=== PATIENT | female | born 1930 | race Caucasian/White ===

== ENCOUNTER 2016-12-17 14:34 | Emergency (ER) | payer OTHER ==
[2016-12-17 14:41] VITALS: BMI 39.0
--- NOTE | 2016-12-17 14:41 | PDOC ---
Rapid Medical Evaluation Medical Evaluation: Allergies Allergy/AdvReac Type Severity Reaction Status Date / Time No Known Drug Allergies Allergy Verified 07/29/14 11:14 12/17/16 14:38 Dr. Cedillo/Business Liaison Officer PMD: Dr. Rubi Szymanski [phone] 85 yo F with PMhx: A fib/CHF c/o Back pain x2 weeks with intermittent cp with SOB. Pt does NOT use o2 at home. Pt sent in by Business Liaison Officer
[2016-12-17 15:07] LABS: BASOPHIL 0.9 % (0-2.0); EOSINOPHIL 1.7 % (0-4.5); MCH 31.2 pg (25.7-33.7); MCHC 32.8 g/dl (32.0-36.0); MEAN CELL VOLUME 94.9 fl (80-96); MEAN PLT VOLUME 8.6 fl (7.5-11.1); PLATELET COUNT 224 K/MM3 (134-434); RDW 15.3 % (11.6-15.6); WHITE BLOOD COUNT 9.9 K/mm3 (4.0-10.0)
--- NOTE | 2016-12-17 15:43 | PDOC ---
History of Present Illness - General History Source: Patient, Old Records Exam Limitations: No Limitations - History of Present Illness Initial Comments: 12/17/16 16:02 The patient is an 85-year-old woman, accompanied by family, with a significant past medical history of hypertension, hyperchoelsterolemia, hypothyroidism, thoracic aortic aneurysm, left breast Ca and diverticulitis who was sent to the emergency department by her Physiotherapy Assistant, Dr. Konrad Cedillo for further evaluation of persistent intermittent chest pains for the past week. Patient states that she is unable to perform minimal movements, as her chest pain is exacerbated and she also experiences back pain. she also reports associated symptoms of shortness of breath. Patient expresses concern, as she has a past medical history of a thoracic aortic aneyrusm. Patient states that she called Dr. Cedillo this morning, regarding her symptoms, and she was advised to present to the ED. Patient has a scheduled outpatient cardiology appointment with Dr. Tiwari on 12/24/2016. No recent fevers, chills, weakness No cough, shortness of breath No nausea, vomiting, diarrhea. Allergies: No Known Drug Allergies Past Surgical History: Appendectomy Social History: No tobacco and recreational drug use. Occasional ETOH use. Primary Care Physician: Dr. Rubi Szymanski [phone] Physiotherapy Assistant: Dr. Konrad Cedillo [phone] <Zoila Bullard - Last Filed: 12/17/16 16:30> <Shelly Tabor - Last Filed: 12/19/16 08:11> - General Chief Complaint: Chest Pain Stated Complaint: SOB, CHEST/ BACK PAIN Time Seen by Provider: 12/17/16 14:38 Past History <Zoila Bullard - Last Filed: 12/17/16 16:30> - Past Medical History Anemia: No Asthma: No Cancer: Yes (LT BREAST) Cardiac Disorders: Yes (CHEST PAIN) CVA: No COPD: No CHF: No Dementia: No Diabetes: No GI Disorders: Yes (DIVERTICULITIS; H/O OF MULT TUBULAR ADENOMAS) Disorders: No HTN: Yes Hypercholesterolemia: Yes Liver Disease: No Suicide Attempt (Hx): No Seizures: No Thyroid Disease: Yes (HYPO) - Surgical History Abdominal Surgery: No Appendectomy: Yes Cardiac Surgery: No Cholecystectomy: No Lung Surgery: No Neurologic Surgery: No Orthopedic Surgery: No - Psycho/Social/Smoking Cessation Hx Anxiety: No Suicidal Ideation: No Smoking Status: No Smoking History: Never smoked Have you smoked in the past 12 months: No Number of Cigarettes Smoked Daily: 0 If you are a former smoker, when did you quit?: stopped 11years ago Information on smoking cessation initiated: No 'Breaking Loose' booklet given: 06/07/12 Hx Alcohol Use: Yes (OCC) Drug/Substance Use Hx: No Substance Use Type: None Hx Substance Use Treatment: No <Shelly Tabor - Last Filed: 12/19/16 08:11> - Past Medical History Allergies/Adverse Reactions: Allergies Allergy/AdvReac Type Severity Reaction Status Date / Time No Known Drug Allergies Allergy Verified 12/17/16 14:42 Home Medications: Ambulatory Orders Aspirin [Baby Aspirin] 162 mg PO DAILY 10/18/11 Losartan Potassium [Cozaar] 100 mg PO DAILY 08/12/12 Metoprolol Succinate [Toprol XL -] 50 mg PO BID 08/12/12 Furosemide [Lasix -] 40 mg PO DAILY 07/29/14 Levothyroxine [Synthroid -] 25 mcg PO DAILY 07/29/14 Pravastatin Sodium [Pravachol -] 40 mg PO HS 12/17/16 Review of Systems - Review of Systems Able to Perform ROS?: Yes Comments:: 12/17/16 16:02 GENERAL/CONSTITUTIONAL: No fever or chills. No weakness. HEAD, EYES, EARS, NOSE AND THROAT: No change in vision. No ear pain or discharge. No sore throat. CARDIOVASCULAR: Yes: Chest Pain. Shortness of breath. RESPIRATORY: No cough, wheezing, or hemoptysis. GASTROINTESTINAL: No nausea, vomiting, diarrhea or constipation. GENITOURINARY: No dysuria, frequency, or change in urination. MUSCULOSKELETAL: No joint or muscle swelling or pain. No neck or back pain. SKIN: No rash NEUROLOGIC: No headache, vertigo, loss of consciousness, or change in strength/ sensation. ENDOCRINE: No increased thirst. No abnormal weight change. HEMATOLOGIC/LYMPHATIC: No anemia, easy bleeding, or history of blood clots. ALLERGIC/IMMUNOLOGIC: No hives or skin allergy. <Zoila Bullard - Last Filed: 12/17/16 16:30> *Physical Exam - Vital Signs Last Vital Signs Temp Pulse Resp BP Pulse Ox 97.8 F 97 H 18 156/82 95 12/17/16 14:37 12/17/16 14:37 12/17/16 14:37 12/17/16 14:37 12/17/16 15:05 - Physical Exam Comments: 12/17/16 16:02 GENERAL: Awake, alert, and fully oriented, in no acute distress HEAD: No signs of trauma EYES: PERRLA, EOMI, sclera anicteric, conjunctiva clear ENT: Auricles normal inspection, hearing grossly normal, nares patent, oropharynx clear without exudates. Moist mucosa NECK: Normal ROM, supple, no lymphadenopathy, JVD, or masses LUNGS: Crackles at gail bases, bilaterally. HEART: Regular rate and rhythm, normal S1 and S2, no murmurs, rubs or gallops ABDOMEN: Soft, nontender, normoactive bowel sounds. No guarding, no rebound. No masses EXTREMITIES: Normal range of motion, 2+ pitting edema to the ankles, bilaterally. No clubbing or cyanosis. No cords, erythema, or tenderness NEUROLOGICAL: Cranial nerves II through XII grossly intact. Normal speech. <Ziola Bullard - Last Filed: 12/17/16 16:30> - Vital Signs Last Vital Signs Temp Pulse Resp BP Pulse Ox 97.8 F 97 H 18 156/82 95 12/17/16 14:37 12/17/16 14:37 12/17/16 14:37 12/17/16 14:37 12/17/16 15:05 <Shelly Tabor - Last Filed: 12/19/16 08:11> Heart Score/ECG Review - ECG Impressions Comment:: EKG 14:47- afib, ventricular rate 81 bpm <Shelly Tabor - Last Filed: 12/19/16 08:11> ED Treatment Course - LABORATORY CBC & Chemistry Diagram: 12/17/16 15:00 12/17/16 15:00 - ADDITIONAL ORDERS Additional order review: 12/17/16 15:00 RBC 4.85 MCV 94.9 MCHC 32.8 RDW 15.3 MPV 8.6 Neutrophils % 70.0 Lymphocytes % 20.1 Monocytes % 7.3 Eosinophils % 1.7 Basophils % 0.9 - RADIOLOGY Radiograph Interpretation: 12/17/16 16:02 EXAM: RAD/CHEST PA LAT IMPRESSION: No evidence of vascular congestion, pulmonary infiltrates, airspace opacities. Shallow inspiration. The heart is borderline enlarged. Mildly uncoiled thoracic aorta. Blunting of the posterior costophrenic angle is seen on the lateral x-ray. Evaluate for pleural effusion. <Zoila Bullard - Last Filed: 12/17/16 16:30> - LABORATORY CBC & Chemistry Diagram: 12/17/16 15:00 12/17/16 15:00 - ADDITIONAL ORDERS Additional order review: 12/17/16 15:00 RBC 4.85 MCV 94.9 MCHC 32.8 RDW 15.3 MPV 8.6 Neutrophils % 70.0 Lymphocytes % 20.1 Monocytes % 7.3 Eosinophils % 1.7 Basophils % 0.9 <Shelly Tabor - Last Filed: 12/19/16 08:11> Medical Decision Making - Medical Decision Making 12/17/16 16:[address] Cedillo via phone. Patient with history of thoracic aortic aneurysm, followed as an outpatient (last imaging in this hospital was many years ago). It is approximately 4cm as per Dr. Cedillo. She presents with SOB, but also with diffuse back pain. Apperas fluid-overloaded on exam. Concern that this may be related to the aneurysm. I am going to obtain CTA chest , a/p to further evaluate. 12/17/16 16:[address] Maher- f/u CTA, reassess. Possible admission for CHF if the CTA is unchanged. <Shelly Tabor - Last Filed: 12/19/16 08:11> *DC/Admit/Observation/Transfer - Attestations Scribe Attestion: 12/17/16 16:03 Documentation prepared by Zoila Bullard, acting as medical secretary for Shelly Tabor MD. <Zoila Bullard - Last Filed: 12/17/16 16:30> <Shelly Tabor - Last Filed: 12/19/16 08:11> Diagnosis at time of Disposition: Chest pain Qualifiers: Chest pain type: unspecified Qualified Code(s): R07.9 - Chest pain, unspecified - Discharge Dispostion Disposition: HOME Condition at time of disposition: Stable - Referrals Referrals: Rubi Szymanski MD [Primary Care Provider] - - Patient Instructions Printed Discharge Instructions: DI for Atypical Chest Pain
[2016-12-17 16:04] LABS: ALBUMIN 3.7 g/dl (3.4-5.0); ANION GAP 8 (8-16); BILIRUBIN,TOTAL 0.4 mg/dL (0.2-1.0); CALCIUM 9.3 mg/dL (8.5-10.1); CO2 33 mmol/L (21-32); CREATININE 0.9 mg/dL (0.55-1.02); GLUCOSE,RANDOM 80 mg/dL (74-106); SGOT/AST 22 U/L (15-37); SGPT/ALT 23 U/L (12-78)
[2016-12-17 16:07] LABS: ALK PHOS 86 U/L (45-117); TROPONIN I < 0.02 ng/ml (0.00-0.05)
[2016-12-17 22:23] LABS: TROPONIN I < 0.02 ng/ml (0.00-0.05)
[2016-12-17 22:54] VITALS: BP 144/80; PULSE 78; TEMP 98
--- NOTE | 2016-12-17 22:54 | PDOC ---
*Physical Exam - Vital Signs Last Vital Signs Temp Pulse Resp BP Pulse Ox 97.5 F L 85 18 109/42 95 12/17/16 21:43 12/17/16 21:43 12/17/16 21:43 12/17/16 21:43 12/17/16 21:43 - Physical Exam Comments: 12/17/16 22:54 Patient endorsed to me by Dr. Tabor. Patient is an 85-year-old female who presented with atypical chest and back pain. EKG showed no evidence of acute ischemia. CTA of chest revealed no changes and no evidence of increase in the fusiform 4 cm thoracic aneurysm that was noted previously. Case discussed with Dr. Pena. Serial cardiac enzymes revealed no evidence of myocardial infarction. Patient safe for discharge with outpatient follow-up for atypical chest pain. ED Treatment Course - LABORATORY CBC & Chemistry Diagram: 12/17/16 15:00 12/17/16 15:00 - ADDITIONAL ORDERS Additional order review: Laboratory Results 12/17/16 12/17/16 12/17/16 21:29 15:00 15:00 Sodium 142 Potassium 4.6 D Chloride 101 Carbon Dioxide 33 H Anion Gap 8 BUN 19 H Creatinine 0.9 Creat Clearance w eGFR 59.37 Random Glucose 80 D Calcium 9.3 Total Bilirubin 0.4 D AST 22 D ALT 23 D Alkaline Phosphatase 86 Creatine Kinase 279 H D 367 H D CK-MB (CK-2) 8.083 H Troponin I < 0.02 < 0.02 B-Natriuretic Peptide 1510.33 H Total Protein 7.0 Albumin 3.7 12/17/16 15:00 RBC 4.85 MCV 94.9 MCHC 32.8 RDW 15.3 MPV 8.6 Neutrophils % 70.0 Lymphocytes % 20.1 Monocytes % 7.3 Eosinophils % 1.7 Basophils % 0.9 *DC/Admit/Observation/Transfer Diagnosis at time of Disposition: Chest pain Qualifiers: Chest pain type: unspecified Qualified Code(s): R07.9 - Chest pain, unspecified - Discharge Dispostion Disposition: HOME Condition at time of disposition: Stable - Referrals Referrals: Rubi Szymanski MD [Primary Care Provider] - - Patient Instructions Printed Discharge Instructions: DI for Atypical Chest Pain - Post Discharge Activity
--- NOTE | 2016-12-18 14:13 | EKG ---
Test Reason : Blood Pressure : / mmHG Vent. Rate : 081 BPM Atrial Rate : 078 BPM P-R Int : 000 ms QRS Dur : 086 ms QT Int : 378 ms P-R-T Axes : 000 012 031 degrees QTc Int : 439 ms ATRIAL FIBRILLATION ABNORMAL ECG WHEN COMPARED WITH ECG OF 07-JUN-2012 17:29, ATRIAL FIBRILLATION HAS REPLACED SINUS RHYTHM Confirmed by MARY CRUZ MD ([id number]) on 12/18/2016 2:13:30 PM Referred By: Confirmed By:MARY CRUZ MD
== END 2016-12-17 22:57 | disposition home or self-care (01) ==
LOC: JER 14:34
DX: R07.9 Chest pain, unspecified (principal); I10 Essential (primary) hypertension; E78.00 Pure hypercholesterolemia, unspecified; E03.9 Hypothyroidism, unspecified; Z85.3 Personal history of malignant neoplasm of breast; I71.9 Aortic aneurysm of unspecified site, without rupture
CPT/HCPCS: 36415; 71020-TC; 71275-TC; 74175-TC; 80053; 82550; 82553; 83880; 84484; 85025; 93005; 93010; 99285-25

== ENCOUNTER 2017-10-19 14:47 | Inpatient (IN) | payer OTHER ==
--- NOTE | 2017-10-19 14:56 | PDOC ---
Rapid Medical Evaluation Time Seen by Provider: 10/19/17 14:54 Medical Evaluation: Allergies Allergy/AdvReac Type Severity Reaction Status Date / Time No Known Drug Allergies Allergy Verified 12/17/16 14:42 10/19/17 14:55 I have performed a brief in-person evaluation of this patient. The patient presents with a chief complaint of: BIB sister for worsening sob x 1 month. H/o HTN, 4cm thoracic aneurysm, afib on asa, edema, HLD, breast ca, diverticulitis, limited gait (only ambulates at home) Pertinent physical exam findings: Sating 92% on RA w/ irreg, irreg rhythm and decreased BS at L base I have ordered the following:ekg/cxr/labs The patient will proceed to the ED for further evaluation. 10/19/17 14:57 10/19/17 14:59 10/19/17 15:01
[2017-10-19 15:27] LABS: INR 1.05 (0.82-1.09); PROTHROMBIN TIME (PATIENT) 11.9 SEC (9.98-11.88)
[2017-10-19 15:30] LABS: URINE APPEARANCE CLOUDY; URINE BILIRUBIN NEGATIVE (NEGATIVE); URINE BLOOD NEGATIVE (NEGATIVE); URINE COLOR DKYELLOW; URINE GLUCOSE (UA) NEGATIVE (NEGATIVE); URINE KETONE TRACE (NEGATIVE); URINE LEUK ESTERASE 2+ (NEGATIVE); URINE NITRITE NEGATIVE (NEGATIVE); URINE PROTEIN 1+ (NEGATIVE); URINE UROBILINOGEN 4.0 E.U/dl mg/dL (0.2-1.0)
[2017-10-19 15:43] LABS: ALBUMIN 3.3 g/dl (3.4-5.0); ANION GAP 9 (8-16); BLOOD UREA NITROGEN 20 mg/dL (7-18); CALCIUM 8.8 mg/dL (8.5-10.1); CHLORIDE 101 mmol/L (98-107); CO2 33 mmol/L (21-32); CREATININE 0.9 mg/dL (0.55-1.02); GLUCOSE,RANDOM 127 mg/dL (74-106); SGOT/AST 19 U/L (15-37); SGPT/ALT 21 U/L (12-78); SODIUM 143 mmol/L (136-145)
[2017-10-19 15:47] LABS: ALK PHOS 87 U/L (45-117); BILIRUBIN,TOTAL 0.5 mg/dL (0.2-1.0); TOT PROT 6.2 g/dl (6.4-8.2)
[2017-10-19 15:48] LABS: EPI CELLS MODERATE /HPF (FEW); URINE BACTERIA RARE /hpf (NONE SEEN); URINE MUCUS RARE
--- NOTE | 2017-10-19 15:49 | PDOC ---
History of Present Illness - General Chief Complaint: Shortness of Breath Stated Complaint: SOB/DIZZINESS Time Seen by Provider: 10/19/17 14:54 - History of Present Illness Initial Comments: 10/19/17 15:58 The patient is an 86 year old female with a history of afib on asa, HTN, 4cm Thoracic aneurysm, edema, HLD, Breast CA who presents for evaluation of SOB. The patient is accompanied by her daughter who assists in providing the history. They report a 1 month history of SOB. However, the patient has been experiencing worsening SOB over the past 3-4 days especially with exertion prompting her presentation to the ED today. She denies any fevers, chills, chest pain, nausea, vomiting, abdominal pain, or changes with urination or bowel movements. She also reports some worsening lower extremity edema over the past 1 week. Past History - Past Medical History Allergies/Adverse Reactions: Allergies Allergy/AdvReac Type Severity Reaction Status Date / Time No Known Drug Allergies Allergy Verified 10/19/17 15:01 Home Medications: Ambulatory Orders Aspirin [Baby Aspirin] 162 mg PO DAILY 10/18/11 Losartan Potassium [Cozaar] 100 mg PO DAILY 08/12/12 Metoprolol Succinate [Toprol XL -] 50 mg PO BID 08/12/12 Furosemide [Lasix -] 40 mg PO DAILY 07/29/14 Levothyroxine [Synthroid -] 25 mcg PO DAILY 07/29/14 Pravastatin Sodium [Pravachol -] 40 mg PO HS 12/17/16 Anemia: No Asthma: No Cancer: Yes (LT BREAST) Cardiac Disorders: Yes (CHEST PAIN) CVA: No COPD: No CHF: No Dementia: No Diabetes: No GI Disorders: Yes (DIVERTICULITIS; H/O OF MULT TUBULAR ADENOMAS) Disorders: No HTN: Yes Hypercholesterolemia: Yes Liver Disease: No Seizures: No Thyroid Disease: Yes (HYPO) - Surgical History Abdominal Surgery: No Appendectomy: Yes Cardiac Surgery: No Cholecystectomy: No Lung Surgery: No Neurologic Surgery: No Orthopedic Surgery: No - Suicide/Smoking/Psychosocial Hx Smoking Status: No Smoking History: Never smoked Have you smoked in the past 12 months: No Number of Cigarettes Smoked Daily: 0 If you are a former smoker, when did you quit?: stopped 11years ago Information on smoking cessation initiated: No 'Breaking Loose' booklet given: 06/07/12 Hx Alcohol Use: No Drug/Substance Use Hx: No Substance Use Type: None Hx Substance Use Treatment: No Review of Systems - Review of Systems Comments:: 10/19/17 16:08 Constitutional: No fevers, chills, fatigue, malaise HEENT: No Rhinorrhea, nasal congestion, visual changes Cardiovascular: No chest pain, syncope, palpitations, lightheadedness Respiratory: SOB. No Cough, Hemoptysis, Gastrointestinal: No Abdominal pain, Nausea, Vomiting, Constipation, Diarrhea, Melena Genitourinary: No Dysuria, Frequency, Urgency, Hesitancy, Hematuria, Flank pain Musculoskeletal: No Myalgia, arthralgia Skin: No rashes, bruising, pallor Neurologic: No Headache, Dizziness, Numbness, Weakness, or Tingling Psychiatric: No Hallucinations. No SI or HI *Physical Exam - Vital Signs Last Vital Signs Temp Pulse Resp BP Pulse Ox 97.9 F 82 22 142/79 92 L 10/19/17 14:53 10/19/17 14:53 10/19/17 14:53 10/19/17 14:53 10/19/17 14:53 - Physical Exam Comments: 10/19/17 16:16 General Appearance: Nourished. No Apparent Distress HEENT: EOMI, ROSE. No Pharyngeal Erythema, Tonsillar Exudate, Tonsillar Erythema Neck: No Cervical Lymphadenopathy Respiratory/Chest: Normal Breath Sounds. Bibasilar rales noted on auscultation. No Rhonchi, Wheezing Cardiovascular: Irregularly Irregular. No Murmur, Gallops, Rubs Gastrointestinal/Abdominal: Normal Bowel Sounds, Soft. No Guarding, Rebound, Tenderness Musculoskeletal: No CVA Tenderness Extremity: 2+ pitting edema in the lower extremities bilatearlly. Normal Capillary Refill Integumentary: Normal Color, Dry, Warm Neurologic: Fully Oriented, Alert, Normal Mood/Affect, Normal Response, ED Treatment Course - LABORATORY CBC & Chemistry Diagram: 10/19/17 15:30 10/19/17 15:06 - ADDITIONAL ORDERS Additional order review: Laboratory Results 10/19/17 10/19/17 15:23 15:06 PT with INR 11.90 H INR 1.05 Urine Color Dkyellow Urine Appearance Cloudy Urine pH 5.0 Ur Specific [place] 1.026 Urine Protein 1+ H Urine Glucose (UA) Negative Urine Ketones Trace H Urine Blood Negative Urine Nitrite Negative Urine Bilirubin Negative Urine Urobilinogen 4.0 e.u/dl H Medical Decision Making - Medical Decision Making 10/19/17 16:17 The patient is an 86 year old female with a history of afib on asa, HTN, 4cm Thoracic aneurysm, edema, HLD, Breast CA who presents for evaluation of SOB. Differential includes but is not limited to: CHF, Pneumonia, infectious, metabolic derangement. Given the patient's physical exam, it is possible her symptoms are due to a CHF exacerbation. However we will obtain a cbc, cmp, troponin, bnp, ua, chest plain film, and ekg to evaluate for other etiologies. We will continue to monitor and reassess. 10/19/17 18:52 CBC, troponin, cmp, ua are unremarkable. BNP is elevated to 1400 and chest plain film demonstrates some signs of pulmonary edema as preliminarily read by ER physician. We believe the patient requires admission for further management of her symptoms as she continues to desaturate to 89% on RA. We discussed the case with Dr. Navarro who accepted the patient for admission. *DC/Admit/Observation/Transfer Diagnosis at time of Disposition: CHF (congestive heart failure) Qualifiers: Congestive heart failure type: unspecified congestive heart failure type Congestive heart failure chronicity: unspecified congestive heart failure chronicity Qualified Code(s): I50.9 - Heart failure, unspecified - Discharge Dispostion Condition at time of disposition: Stable Admit: Yes - Referrals - Patient Instructions - Post Discharge Activity
[2017-10-19 16:08] LABS: BASO % 0.8 % (0-2.0); EOS % 1.7 % (0-4.5); HEMATOCRIT 42.1 % (32.4-45.2); HEMOGLOBIN 13.7 GM/dL (10.7-15.3); LYMPH % 16.8 % (8-40); MCH 30.8 pg (25.7-33.7); MCHC 32.5 g/dl (32.0-36.0); MEAN CELL VOLUME 94.9 fl (80-96); MEAN PLT VOLUME 8.7 fl (7.5-11.1); MONO % 9.1 % (3.8-10.2); NEUT % 71.6 % (42.8-82.8); PLATELET COUNT 204 K/MM3 (134-434); RBC 4.44 M/mm3 (3.60-5.2); RDW 15.8 % (11.6-15.6); WHITE BLOOD COUNT 9.5 K/mm3 (4.0-10.0)
--- NOTE | 2017-10-19 19:51 | PDOC ---
Attending Attestation - Resident Resident Name: Tyrone Dash - ED Attending Attestation I have performed the following: I have examined & evaluated the patient, The case was reviewed & discussed with the resident, I agree w/resident's findings & plan, Exceptions are as noted - HPI HPI: 10/19/17 19:51 86 yo female w history of shortness of breath - Physicial Exam PE: 10/19/17 19:55 alert 86 yo female with c/o dyspnea head ncat neck supple lungs no crackles,no wheezing abd soft ,nontender cvs [id number] ext + edema skin no cellulitis psych appropriate neuro moving all extremities,alert,conversant - Medical Decision Making 10/19/17 19:57 increased LE edema, sob with elevated bnp, admit for chf
[2017-10-19] MEDS: HEPARIN NA (PORCINE) 5,000 UNITS/ML 1ML VIAL SQ SCH (22:00)
[2017-10-19] MEDS: METOPROLOL SUCCINATE 50 MG TAB.SR.24H (FP) PO SCH (22:00)
[2017-10-19] MEDS ORDERED: METOPROLOL SUCCINATE 50 MG TAB.SR.24H (FP) ONE (22:07)
[2017-10-19] MEDS ORDERED: HEPARIN NA (PORCINE) 5,000 UNITS/ML 1ML VIAL ONE (22:07)
--- NOTE | 2017-10-19 22:23 | HP ---
Admitting History and Physical - Admission Chief Complaint: shortness of breath History of Present Illness: 86 yo female, presents to hospital with increasing shortness of breath for past month. Denies any chest pain. Did have shortness of breath prior, for which she had seen insulation helper (Dr Patel) over the summer, but no significant lung disease was noted. Patient does take lasix daily. Has chronic edema in legs , but left leg seems increased compared to her baseline. History Source: Patient, Family Member, Medical Record Limitations to Obtaining History: No Limitations - Past Medical History Cardiovascular: Yes: CAD, HTN, Hyperlipdemia, Other (chronic venous insufficiency bilateral legs) Gastrointestinal: Yes: Diverticulitis, Diverticulosis Heme/Onc: Yes: Cancer (left breast) Musculoskeletal: Yes: Chronic low back pain Endocrine: Yes: Hypothyroidism - Past Surgical History Past Surgical History: Yes: Appendectomy, Mastectomy (left) - Smoking History Smoking history: Never smoked Have you smoked in the past 12 months: No Aproximately how many cigarettes per day: 0 If you are a former smoker, when did you quit?: stopped 11years ago - Alcohol/Substance Use Hx Alcohol Use: No Home Medications - Allergies Allergies/Adverse Reactions: Allergies Allergy/AdvReac Type Severity Reaction Status Date / Time No Known Drug Allergies Allergy Verified 10/19/17 15:01 - Home Medications Home Medications: Ambulatory Orders Aspirin [Baby Aspirin] 162 mg PO DAILY 10/18/11 Losartan Potassium [Cozaar] 100 mg PO DAILY 08/12/12 Metoprolol Succinate [Toprol XL -] 50 mg PO BID 08/12/12 Furosemide [Lasix -] 40 mg PO DAILY 07/29/14 Levothyroxine [Synthroid -] 25 mcg PO DAILY 07/29/14 Pravastatin Sodium [Pravachol -] 40 mg PO HS 12/17/16 Family Disease History - Family Disease History Family Disease History: Heart Disease: Mother, Brother Review of Systems - Review of Systems Constitutional: denies: Chills, Fever Eyes: reports: No Symptoms HENT: denies: Difficult Swallowing, Epistaxis, Throat Pain Neck: denies: Decreased ROM, Stiffness Cardiovascular: denies: Chest Pain, Palpitations Respiratory: denies: Cough, Wheezing Gastrointestinal: reports: Constipation. denies: Abdominal Pain, Diarrhea, Melena, Nausea, Vomiting Genitourinary: denies: Burning, Discharge, Dysuria Physical Examination Vital Signs: Vital Signs Temperature 97.9 F 10/19/17 14:53 Pulse Rate 88 10/19/17 19:07 Respiratory Rate 22 10/19/17 19:07 Blood Pressure 151/85 10/19/17 19:07 O2 Sat by Pulse Oximetry (%) 94 L 10/19/17 19:07 Constitutional: Yes: Well Nourished, No Distress, Calm Eyes: Yes: Conjunctiva Clear, EOM Intact, PERRL HENT: Yes: Atraumatic, Normocephalic Neck: Yes: Supple, Trachea Midline Cardiovascular: Yes: Regular Rate and Rhythm, S1, S2. No: Murmur Respiratory: Yes: Regular, Diminished (at bases) Gastrointestinal: Yes: Normal Bowel Sounds, Soft, Abdomen, Obese. No: Distention, Tenderness Edema: Yes Edema: LLE: 2+, RLE: 2+ Neurological: Yes: Alert, Oriented Labs: CBC, BMP 10/19/17 15:30 10/19/17 15:06 Imaging - Results Chest X-ray: Image Reviewed ((unofficial) left interstitial edema, left pleural effusion) Problem List - Problems (1) CHF (congestive heart failure) Assessment/Plan: -start IV lasix -cardio eval -on ASA, ARB, B-margy Code(s): I50.9 - HEART FAILURE, UNSPECIFIED Qualifiers: Congestive heart failure type: unspecified congestive heart failure type Congestive heart failure chronicity: unspecified congestive heart failure chronicity Qualified Code(s): I50.9 - Heart failure, unspecified (2) Hypertension Assessment/Plan: -cont antihypertensives Code(s): I10 - ESSENTIAL (PRIMARY) HYPERTENSION (3) Hypothyroid Assessment/Plan: -cont synthroid Code(s): E03.9 - HYPOTHYROIDISM, UNSPECIFIED (4) Venous insufficiency (chronic) (peripheral) Assessment/Plan: -wll be on lasix IV Code(s): I87.2 - VENOUS INSUFFICIENCY (CHRONIC) (PERIPHERAL) (5) Hyperlipidemia Assessment/Plan: -cont statin Code(s): E78.5 - HYPERLIPIDEMIA, UNSPECIFIED
[2017-10-20] MEDS: ATORVASTATIN CA 10 MG TABLET (FP) PO SCH ×2 (00:09→21:38)
[2017-10-20] MEDS ORDERED: FLU VACCINE QUAD 60 MCG/0.5 ML (MDV 17-18) IM ONE (00:45)
[2017-10-20 06:53] LABS: ALBUMIN 3.2 g/dl (3.4-5.0); ANION GAP 8 (8-16); BLOOD UREA NITROGEN 18 mg/dL (7-18); CALCIUM 8.7 mg/dL (8.5-10.1); CHLORIDE 102 mmol/L (98-107); CO2 33 mmol/L (21-32); GLUCOSE,RANDOM 81 mg/dL (74-106); POTASSIUM 3.6 mmol/L (3.5-5.1); SODIUM 143 mmol/L (136-145)
[2017-10-20 06:56] LABS: ALK PHOS 72 U/L (45-117); BILIRUBIN,TOTAL 0.5 mg/dL (0.2-1.0); CREATININE 0.7 mg/dL (0.55-1.02); SGOT/AST 17 U/L (15-37); SGPT/ALT 20 U/L (12-78); TOT PROT 6.1 g/dl (6.4-8.2)
--- NOTE | 2017-10-20 08:59 | CON.CARD ---
Consult Consult Specialty:: Cardiology Referred by:: Dr. Navarro Reason for Consultation:: Acute on chronic CHF - History of Present Illness Chief Complaint: Increasing SOB and edema History of Present Illness: 86F, followed in office, with permanent AF, obesity, non-obstx CAD on cath 2011 , HTN, chronic diastolic CHF, hyperlipidemia, ascending aortic aneursm 4.0 cm, mild , mild PHTN presented to ER with family for several weeks of increased ELLIS and LE edema. Denies CP, palps, syncope. Denies PND. Mild orthopnea. No fevers or chills. No recent travel. - History Source History Provided By: Patient, Medical Record - Past Medical History Cardio/Vascular: Yes: CAD (non-obstx 2011), HTN, Hyperlipdemia, Other (chronic venous insufficiency bilateral legs) Gastrointestinal: Yes: Diverticulitis, Diverticulosis Musculoskeletal: Yes: Chronic low back pain Endocrine: Yes: Hypothyroidism - Past Surgical History Past Surgical History: Yes: Appendectomy, Mastectomy (left) Additional Surgical History: Cath 2011, non-obstructive - Alcohol/Substance Use Hx Alcohol Use: No - Smoking History Smoking history: Never smoked Have you smoked in the past 12 months: No Aproximately how many cigarettes per day: 0 If you are a former smoker, when did you quit?: stopped 11years ago - Social History History of Recent Travel: No Home Medications - Allergies Allergies/Adverse Reactions: Allergies Allergy/AdvReac Type Severity Reaction Status Date / Time No Known Drug Allergies Allergy Verified 10/19/17 15:01 - Home Medications Home Medications: Ambulatory Orders Aspirin [Baby Aspirin] 162 mg PO DAILY 10/18/11 Losartan Potassium [Cozaar] 100 mg PO DAILY 08/12/12 Metoprolol Succinate [Toprol XL -] 50 mg PO BID 08/12/12 Furosemide [Lasix -] 40 mg PO DAILY 07/29/14 Levothyroxine [Synthroid -] 25 mcg PO DAILY 07/29/14 Pravastatin Sodium [Pravachol -] 40 mg PO HS 12/17/16 Family Disease History - Family Disease History Family Disease History: Heart Disease: Mother, Brother Review of Systems Findings/Remarks: see HPI - Review of Systems Constitutional: reports: No Symptoms Eyes: reports: No Symptoms HENT: reports: No Symptoms Neck: reports: No Symptoms Cardiovascular: reports: Shortness of Breath Respiratory: reports: Exercise Intolerance, SOB on Exertion Gastrointestinal: reports: No Symptoms Genitourinary: reports: No Symptoms Musculoskeletal: reports: No Symptoms Integumentary: reports: No Symptoms Neurological: reports: No Symptoms Endocrine: reports: No Symptoms Hematology/Lymphatic: reports: No Symptoms Psychiatric: reports: No Symptoms - Risk Factors Known Risk Factors: Yes: Hypercholesterolemia, Hypertension, Physical Inactivity Vital Signs: Vital Signs Temperature 98.5 F 10/20/17 06:58 Pulse Rate 65 10/20/17 06:58 Respiratory Rate 18 10/20/17 06:58 Blood Pressure 119/53 10/20/17 06:58 O2 Sat by Pulse Oximetry (%) 97 10/20/17 06:58 Constitutional: Yes: No Distress, Calm Eyes: Yes: Conjunctiva Clear, EOM Intact HENT: Yes: Atraumatic, Normocephalic Neck: Yes: Trachea Midline Respiratory: Yes: Other (decreased breath sounds at bases; no wheezing.) Gastrointestinal: Yes: Soft, Abdomen, Obese JVD: Yes Carotid Bruit: No PMI: Non-Displaced Heart Sounds: Yes: S1, S2 (irregular, soft systolic murmur at RSB.) Murmur: Yes: Systolic Murmur Musculoskeletal: Yes: WNL Extremities: Yes: WNL Edema: Yes Edema: LLE: 2+, RLE: 2+ Peripheral Pulses WNL: Yes Integumentary: Yes: WNL Neurological: Yes: Alert, Oriented ...Motor Strength: WNL - Other Data Labs, Other Data: CBC, BMP 10/19/17 15:30 10/20/17 05:50 INR, PTT INR 1.05 (0.82-1.09) 10/19/17 15:06 Troponin, BNP 10/19/17 10/19/17 10/20/17 15:06 15:06 00:30 Troponin I 0.02 0.02 B-Natriuretic Peptide 1484.71 H 10/20/17 05:50 Troponin I 0.02 B-Natriuretic Peptide Troponin, BNP 10/19/17 10/19/17 10/20/17 15:06 15:06 00:30 Troponin I 0.02 0.02 B-Natriuretic Peptide 1484.71 H 10/20/17 05:50 Troponin I 0.02 B-Natriuretic Peptide AF 74bpm, LVH, PVC, NSST changes Echo: Pending, Other (office echo 2017: Nl LV, E:A reversal c/w diastolic dysfx , Mild MR, Mild ,Aorta 4cm) Prior Cardiac Procedures: Cardiac Catheterization, Other (non-obstructive 2011) Ejection Fraction %: LVEF > or = 40 % Imaging - Results X-ray: Image Reviewed EKG: Image Reviewed Problem List - Problems (1) Acute on chronic diastolic CHF (congestive heart failure) Assessment/Plan: -secondary to chronic hypertensive heart disease; Continue ARB -Agree with IV Lasix daily, strict I/s and Os and daily weights -Telemetry -Prior cath 2011 with non-obstructive CAD Code(s): I50.33 - ACUTE ON CHRONIC DIASTOLIC (CONGESTIVE) HEART FAILURE (2) Permanent atrial fibrillation Assessment/Plan: -Rate controlled, continue Toprol at home dose -Continue ASA therapy, not a candidate for full AC due to frequent home falls. Issue has been raised and discussed with patient and family in depth. Option of full AC was raised, but given concerns for her repeated falls, ASA was chosen as most appropriate therapy. Code(s): I48.2 - CHRONIC ATRIAL FIBRILLATION (3) CAD (coronary artery disease) Assessment/Plan: -non-obstructive. -Continue ASA and statin. Code(s): I25.10 - ATHSCL HEART DISEASE OF [place] CORONARY ARTERY W/O ANG PCTRS Qualifiers: Coronary Disease-Associated Artery/Lesion type: [place] artery Associated angina: without angina (4) Aortic stenosis Assessment/Plan: -chronic, mild. -To repeat echo to re-assess Code(s): I35.0 - NONRHEUMATIC AORTIC (VALVE) STENOSIS Qualifiers: Cardiac valve disease etiology: nonrheumatic Qualified Code(s): I35.0 - Nonrheumatic aortic (valve) stenosis (5) Hypertension Assessment/Plan: -currently adequately controlled -continue Losartan Code(s): I10 - ESSENTIAL (PRIMARY) HYPERTENSION Qualifiers: Hypertension type: essential hypertension Qualified Code(s): I10 - Essential (primary) hypertension (6) Pulmonary hypertension Assessment/Plan: -Chronic and due to chronic diastolic CHF, obesity, possible LISY -Diurese -Repeat echo -Can consider low dose Imdur to reduce EDP/preload and possibly also help with PHTN Code(s): I27.20 - PULMONARY HYPERTENSION, UNSPECIFIED (7) Ascending aortic aneurysm Assessment/Plan: -Mild and stable at 4cm; no sig. AR -BP control, continue beta margy -repeat Echo Code(s): I71.2 - THORACIC AORTIC ANEURYSM, WITHOUT RUPTURE (8) Obesity Assessment/Plan: -Low sodium diet -Manager Lvn on modifying carb intake -Exercise capacity and mobility are limited by weight and chronic OA of knees, hips and lower back Code(s): E66.9 - OBESITY, UNSPECIFIED Qualifiers: Obesity type: with alveolar hypoventilation Serious obesity comorbidity presence: without serious comorbidity (9) Hyperlipidemia Assessment/Plan: -Continue Pravachol/ -Goal LDL < 100mg/dl Code(s): E78.5 - HYPERLIPIDEMIA, UNSPECIFIED Qualifiers: Hyperlipidemia type: unspecified Qualified Code(s): E78.5 - Hyperlipidemia , unspecified
--- NOTE | 2017-10-20 10:48 | PN ---
Progress Note, Physician Chief Complaint: Ms Benítez says her breathing is better but still with some shortness of breath. No cp or n/v. Legs chronically swollen but states worse currently. - Current Medication List Current Medications: Active Medications Aspirin (Asa -) 162 mg PO DAILY [facility] Atorvastatin Calcium (Lipitor -) 10 mg PO HS [facility] Last Admin: 10/20/17 00:09 Dose: 10 mg Furosemide (Lasix Injection -) 40 mg IVPUSH DAILY [facility] Heparin Sodium (Porcine) (Heparin -) 5,000 unit SQ BID [facility] Last Admin: 10/19/17 22:00 Dose: 5,000 unit Levothyroxine Sodium (Synthroid -) 25 mcg PO DAILY@0700 [facility] Losartan Potassium (Losartan Potassium) 100 mg PO DAILY [facility] Metoprolol Succinate (Toprol Xl -) 50 mg PO BID [facility] Last Admin: 10/19/17 22:00 Dose: 50 mg - Objective Vital Signs: Vital Signs Temperature 36.9 C 10/20/17 06:58 Pulse Rate 65 10/20/17 06:58 Respiratory Rate 18 10/20/17 06:58 Blood Pressure 119/53 10/20/17 06:58 O2 Sat by Pulse Oximetry (%) 97 10/20/17 06:58 Constitutional: Yes: No Distress, Calm, Obese (morbid) Cardiovascular: Yes: Regular Rate and Rhythm, JVD. No: Gallop, Murmur, Rub Respiratory: Yes: Regular, CTA Bilaterally, On Nasal O2. No: Rales, Rhonchi, Wheezes Gastrointestinal: Yes: Normal Bowel Sounds, Soft. No: Distention, Tenderness Extremities: Yes: WNL Edema: Yes Edema: LLE: 3+, RLE: 3+ Labs: CBC, BMP 10/19/17 15:30 10/20/17 05:50 INR, PTT INR 1.05 (0.82-1.09) 10/19/17 15:06 Problem List - Problems (1) Acute on chronic diastolic CHF (congestive heart failure) Assessment/Plan: -appreciate cardiology assistance -continue diuresing with IV lasix -continue toprol xl and losartan Code(s): I50.33 - ACUTE ON CHRONIC DIASTOLIC (CONGESTIVE) HEART FAILURE (2) CAD (coronary artery disease) Assessment/Plan: -quiescent -continue current regimen Code(s): I25.10 - ATHSCL HEART DISEASE OF [place] CORONARY ARTERY W/O ANG PCTRS Qualifiers: Coronary Disease-Associated Artery/Lesion type: [place] artery Associated angina: without angina (3) Hypertension Assessment/Plan: -controlled -continue IV lasix -continue toprol xl and losartan Code(s): I10 - ESSENTIAL (PRIMARY) HYPERTENSION (4) Hypothyroid Assessment/Plan: -continue synthroid Code(s): E03.9 - HYPOTHYROIDISM, UNSPECIFIED (5) Obesity Assessment/Plan: -outpatient weight loss program Code(s): E66.9 - OBESITY, UNSPECIFIED Qualifiers: Obesity type: with alveolar hypoventilation Serious obesity comorbidity presence: without serious comorbidity
[2017-10-20] MEDS: METOPROLOL SUCCINATE 50 MG TAB.SR.24H (FP) PO SCH ×2 (10:49→21:38)
[2017-10-20] MEDS: LEVOTHYROXINE NA 25 MCG TABLET (FP) PO SCH (10:49)
[2017-10-20] MEDS: LOSARTAN POTASSIUM 100 MG TABLET PO SCH (10:49)
[2017-10-20] MEDS: FUROSEMIDE 40 MG/4 ML INJECTABLE VIAL IVPUSH SCH (10:49)
[2017-10-20] MEDS: ASPIRIN 81 MG CHEWABLE TABLETS PO SCH (10:49)
[2017-10-20] MEDS: HEPARIN NA (PORCINE) 5,000 UNITS/ML 1ML VIAL SQ SCH ×2 (10:49→21:38)
[2017-10-20 11:06] VITALS: BMI 45.9
[2017-10-20] MEDS ORDERED: ACETAMINOPHEN 325 MG TABLET (FP) PO PRN (19:59)
[2017-10-20] MEDS: POLYETHYLENE GLYCOL 3350 119 GM BTL PO PRN (21:37)
[2017-10-20] MEDS: ESCITALOPRAM OXALATE 10 MG TABLET (FP) PO SCH (21:39)
[2017-10-21] MEDS: LEVOTHYROXINE NA 25 MCG TABLET (FP) PO SCH (06:28)
[2017-10-21 08:16] LABS: BASO % 0.5 % (0-2.0); EOS % 1.9 % (0-4.5); HEMATOCRIT 41.4 % (32.4-45.2); LYMPH % 21.5 % (8-40); MCH 30.1 pg (25.7-33.7); MCHC 31.4 g/dl (32.0-36.0); MEAN CELL VOLUME 95.9 fl (80-96); MEAN PLT VOLUME 8.4 fl (7.5-11.1); MONO % 9.2 % (3.8-10.2); NEUT % 66.9 % (42.8-82.8); PLATELET COUNT 178 K/MM3 (134-434); RBC 4.32 M/mm3 (3.60-5.2); RDW 16.1 % (11.6-15.6); WHITE BLOOD COUNT 7.4 K/mm3 (4.0-10.0)
[2017-10-21 08:22] LABS: ANION GAP 7 (8-16); BLOOD UREA NITROGEN 16 mg/dL (7-18); CALCIUM 8.2 mg/dL (8.5-10.1); CHLORIDE 100 mmol/L (98-107); CO2 36 mmol/L (21-32); CREATININE 0.7 mg/dL (0.55-1.02); GLUCOSE,RANDOM 73 mg/dL (74-106); MAGNESIUM 2.1 mg/dL (1.8-2.4); PHOSPHOROUS 3.4 mg/dL (2.5-4.9); SODIUM 143 mmol/L (136-145)
--- NOTE | 2017-10-21 08:52 | PN ---
Progress Note, Physician Chief Complaint: alert, no distress Feels better History of Present Illness: Weight 250 down to 240, ? reliable? - Current Medication List Current Medications: Active Medications Acetaminophen (Tylenol -) 325 mg PO Q6H PRN PRN Reason: FEVER OR PAIN Aspirin (Asa -) 162 mg PO DAILY [facility] Last Admin: 10/20/17 10:49 Dose: 162 mg Atorvastatin Calcium (Lipitor -) 10 mg PO HS [facility] Last Admin: 10/20/17 21:38 Dose: 10 mg Escitalopram Oxalate (Lexapro -) 5 mg PO HS [facility] Last Admin: 10/20/17 21:39 Dose: 5 mg Furosemide (Lasix Injection -) 40 mg IVPUSH DAILY [facility] Last Admin: 10/20/17 10:49 Dose: 40 mg Heparin Sodium (Porcine) (Heparin -) 5,000 unit SQ BID [facility] Last Admin: 10/20/17 21:38 Dose: 5,000 unit Levothyroxine Sodium (Synthroid -) 25 mcg PO DAILY@0700 [facility] Last Admin: 10/21/17 06:28 Dose: 25 mcg Losartan Potassium (Losartan Potassium) 100 mg PO DAILY [facility] Last Admin: 10/20/17 10:49 Dose: 100 mg Metoprolol Succinate (Toprol Xl -) 50 mg PO BID [facility] Last Admin: 10/20/17 21:38 Dose: 50 mg Polyethylene Glycol (Miralax (For Daily Use) -) 17 gm PO DAILY PRN PRN Reason: CONSTIPATION Last Admin: 10/20/17 21:37 Dose: 17 grams - Objective Vital Signs: Vital Signs Temperature 97.9 F 10/21/17 08:39 Pulse Rate 87 10/21/17 08:39 Respiratory Rate 20 10/21/17 08:39 Blood Pressure 113/67 10/21/17 08:39 O2 Sat by Pulse Oximetry (%) 94 L 10/20/17 20:16 Constitutional: Yes: No Distress Eyes: Yes: Conjunctiva Clear Cardiovascular: Yes: Pulse Irregular Respiratory: Yes: Other (rales resolved, no wheezing or rhonchi) Gastrointestinal: Yes: Soft, Abdomen, Obese Edema: Yes Edema: LLE: 1+, RLE: 1+ Neurological: Yes: Alert, Oriented Labs: CBC, BMP 10/21/17 06:30 INR, PTT INR 1.05 (0.82-1.09) 10/19/17 15:06 Laboratory Tests 10/19/17 10/19/17 10/19/17 15:06 15:06 15:06 WBC Hgb Hct Plt Count INR 1.05 Sodium Potassium BUN Creatinine Creat Clearance w eGFR Creatine Kinase 216 H Troponin I 0.02 B-Natriuretic Peptide 1484.71 H Urine pH Ur Specific [place] Urine Protein Urine Ketones Urine Blood Urine Nitrite Urine Bilirubin Urine Urobilinogen Ur Leukocyte Esterase 10/19/17 10/19/17 10/20/17 15:23 15:30 00:30 WBC 9.5 Hgb 13.7 Hct 42.1 Plt Count 204 INR Sodium Potassium BUN Creatinine Creat Clearance w eGFR Creatine Kinase 214 H Troponin I 0.02 B-Natriuretic Peptide Urine pH 5.0 Ur Specific [place] 1.026 Urine Protein 1+ H Urine Ketones Trace H Urine Blood Negative Urine Nitrite Negative Urine Bilirubin Negative Urine Urobilinogen 4.0 e.u/dl H Ur Leukocyte Esterase 1+ H 10/20/17 10/20/17 10/21/17 05:50 05:50 06:30 WBC 7.4 Hgb 13.0 Hct Plt Count 178 INR Sodium 143 Potassium 3.6 BUN 18 Creatinine 0.7 D Creat Clearance w eGFR > 60 Creatine Kinase 204 H Troponin I 0.02 B-Natriuretic Peptide Urine pH Ur Specific [place] Urine Protein Urine Ketones Urine Blood Urine Nitrite Urine Bilirubin Urine Urobilinogen Ur Leukocyte Esterase Problem List - Problems (1) Acute on chronic diastolic CHF (congestive heart failure) Code(s): I50.33 - ACUTE ON CHRONIC DIASTOLIC (CONGESTIVE) HEART FAILURE (2) Permanent atrial fibrillation Code(s): I48.2 - CHRONIC ATRIAL FIBRILLATION (3) CAD (coronary artery disease) Code(s): I25.10 - ATHSCL HEART DISEASE OF [place] CORONARY ARTERY W/O ANG PCTRS Qualifiers: Coronary Disease-Associated Artery/Lesion type: [place] artery Associated angina: without angina (4) Aortic stenosis Code(s): I35.0 - NONRHEUMATIC AORTIC (VALVE) STENOSIS Qualifiers: Cardiac valve disease etiology: nonrheumatic Qualified Code(s): I35.0 - Nonrheumatic aortic (valve) stenosis (5) Hypertension Code(s): I10 - ESSENTIAL (PRIMARY) HYPERTENSION Qualifiers: Hypertension type: essential hypertension Qualified Code(s): I10 - Essential (primary) hypertension (6) Pulmonary hypertension Code(s): I27.20 - PULMONARY HYPERTENSION, UNSPECIFIED (7) Ascending aortic aneurysm Code(s): I71.2 - THORACIC AORTIC ANEURYSM, WITHOUT RUPTURE (8) Obesity Code(s): E66.9 - OBESITY, UNSPECIFIED Qualifiers: Obesity type: with alveolar hypoventilation Serious obesity comorbidity presence: without serious comorbidity (9) Hyperlipidemia Code(s): E78.5 - HYPERLIPIDEMIA, UNSPECIFIED Qualifiers: Hyperlipidemia type: unspecified Qualified Code(s): E78.5 - Hyperlipidemia , unspecified Assessment/Plan (1) Acute on chronic diastolic CHF (congestive heart failure) Assessment/Plan: -secondary to chronic hypertensive heart disease; Continue ARB -Cont IV Lasix daily, strict I/s and Os and daily weights; probably can switch to Po tomorrow -Prior cath 2011 with non-obstructive CAD (2) Permanent atrial fibrillation Assessment/Plan: -Rate controlled, continue Toprol -Continue ASA therapy, not a candidate for full AC due to frequent home falls. (3) CAD (coronary artery disease) Assessment/Plan: -non-obstructive. -Continue ASA and statin. (4) Aortic stenosis Assessment/Plan: -chronic, mild. Repeat echo report pending (5) Hypertension Assessment/Plan: -currently adequately controlled -continue Losartan (6) Pulmonary hypertension Assessment/Plan: -Chronic and due to chronic diastolic CHF, obesity, possible LISY -Diurese -Repeat echo report pendng (7) Ascending aortic aneurysm Assessment/Plan: -Mild and stable at 4cm; no sig. AR. Likely no intervention required. -BP control, continue beta margy -repeat Echo pending (8) Obesity Assessment/Plan: -Low sodium diet -Public We[employer] on modifying carb intake -Exercise capacity and mobility are limited by weight and chronic OA of knees, hips and lower back (9) Hyperlipidemia Assessment/Plan: -Continue Pravachol/ -Goal LDL < 100mg/dl
[2017-10-21] MEDS: LOSARTAN POTASSIUM 100 MG TABLET PO SCH (09:10)
[2017-10-21] MEDS: HEPARIN NA (PORCINE) 5,000 UNITS/ML 1ML VIAL SQ SCH ×2 (09:10→21:20)
[2017-10-21] MEDS: FUROSEMIDE 40 MG/4 ML INJECTABLE VIAL IVPUSH SCH (09:10)
[2017-10-21] MEDS: ASPIRIN 81 MG CHEWABLE TABLETS PO SCH (09:10)
[2017-10-21] MEDS: METOPROLOL SUCCINATE 50 MG TAB.SR.24H (FP) PO SCH ×2 (09:10→21:20)
--- NOTE | 2017-10-21 12:20 | PN ---
Progress Note, Physician Chief Complaint: Ms Benítez says she is feeling much better today. Says her breathing is doing well. Still with significant swelling, cannot tell me if close to baseline but improved from yesterday. No cp or n/v. - Current Medication List Current Medications: Active Medications Acetaminophen (Tylenol -) 325 mg PO Q6H PRN PRN Reason: FEVER OR PAIN Aspirin (Asa -) 162 mg PO DAILY [facility] Last Admin: 10/21/17 09:10 Dose: 162 mg Atorvastatin Calcium (Lipitor -) 10 mg PO HS [facility] Last Admin: 10/20/17 21:38 Dose: 10 mg Escitalopram Oxalate (Lexapro -) 5 mg PO HS [facility] Last Admin: 10/20/17 21:39 Dose: 5 mg Furosemide (Lasix Injection -) 40 mg IVPUSH DAILY [facility] Last Admin: 10/21/17 09:10 Dose: 40 mg Heparin Sodium (Porcine) (Heparin -) 5,000 unit SQ BID [facility] Last Admin: 10/21/17 09:10 Dose: 5,000 unit Levothyroxine Sodium (Synthroid -) 25 mcg PO DAILY@0700 [facility] Last Admin: 10/21/17 06:28 Dose: 25 mcg Losartan Potassium (Losartan Potassium) 100 mg PO DAILY [facility] Last Admin: 10/21/17 09:10 Dose: 100 mg Metoprolol Succinate (Toprol Xl -) 50 mg PO BID [facility] Last Admin: 10/21/17 09:10 Dose: 50 mg Polyethylene Glycol (Miralax (For Daily Use) -) 17 gm PO DAILY PRN PRN Reason: CONSTIPATION Last Admin: 10/20/17 21:37 Dose: 17 grams - Objective Vital Signs: Vital Signs Temperature 36.6 C 10/21/17 08:39 Pulse Rate 87 10/21/17 08:39 Respiratory Rate 20 10/21/17 08:39 Blood Pressure 113/67 10/21/17 08:39 O2 Sat by Pulse Oximetry (%) 96 10/21/17 09:00 Constitutional: Yes: No Distress, Calm, Obese Cardiovascular: Yes: Regular Rate and Rhythm. No: Gallop, Murmur, Rub Respiratory: Yes: Regular, CTA Bilaterally. No: Rales, Rhonchi, Wheezes Gastrointestinal: Yes: Normal Bowel Sounds, Soft. No: Distention, Tenderness Extremities: Yes: WNL Edema: Yes Edema: LLE: 2+, RLE: 2+ Labs: CBC, BMP 10/21/17 06:30 10/21/17 06:30 INR, PTT INR 1.05 (0.82-1.09) 10/19/17 15:06 Problem List - Problems (1) Acute on chronic diastolic CHF (congestive heart failure) Code(s): I50.33 - ACUTE ON CHRONIC DIASTOLIC (CONGESTIVE) HEART FAILURE (2) CAD (coronary artery disease) Code(s): I25.10 - ATHSCL HEART DISEASE OF [place] CORONARY ARTERY W/O ANG PCTRS Qualifiers: Coronary Disease-Associated Artery/Lesion type: [place] artery Associated angina: without angina (3) Hypertension Code(s): I10 - ESSENTIAL (PRIMARY) HYPERTENSION (4) Hypothyroid Code(s): E03.9 - HYPOTHYROIDISM, UNSPECIFIED (5) Obesity Code(s): E66.9 - OBESITY, UNSPECIFIED Qualifiers: Obesity type: with alveolar hypoventilation Serious obesity comorbidity presence: without serious comorbidity Assessment/Plan (1) Acute on chronic diastolic CHF (congestive heart failure) Assessment/Plan: -cardiology note reviewed -continue IV lasix today -plan to transition to oral lasix tomorrow -continue beta margy and ARB -will d/w cardiology about when patient is safe for discharge Code(s): I50.33 - ACUTE ON CHRONIC DIASTOLIC (CONGESTIVE) HEART FAILURE (2) CAD (coronary artery disease) Assessment/Plan: -quiescent -continue current regimen Code(s): I25.10 - ATHSCL HEART DISEASE OF [place] CORONARY ARTERY W/O ANG PCTRS Qualifiers: Coronary Disease-Associated Artery/Lesion type: [place] artery Associated angina: without angina (3) Hypertension Assessment/Plan: -controlled -continue IV lasix -continue toprol xl and losartan Code(s): I10 - ESSENTIAL (PRIMARY) HYPERTENSION (4) Hypothyroid Assessment/Plan: -continue synthroid Code(s): E03.9 - HYPOTHYROIDISM, UNSPECIFIED (5) Obesity Assessment/Plan: -outpatient weight loss program Code(s): E66.9 - OBESITY, UNSPECIFIED Qualifiers: Obesity type: with alveolar hypoventilation Serious obesity comorbidity presence: without serious comorbidity
--- NOTE | 2017-10-21 13:22 | EKG ---
Test Reason : Blood Pressure : / mmHG Vent. Rate : 074 BPM Atrial Rate : 357 BPM P-R Int : 000 ms QRS Dur : 086 ms QT Int : 400 ms P-R-T Axes : 000 011 028 degrees QTc Int : 444 ms ATRIAL FIBRILLATION WITH PREMATURE VENTRICULAR OR ABERRANTLY CONDUCTED COMPLEXES ABNORMAL ECG WHEN COMPARED WITH ECG OF 17-DEC-2016 14:47, NO SIGNIFICANT CHANGE WAS FOUND Confirmed by LAW ARAGON MD ([id number]) on 10/21/2017 1:22:00 PM Referred By: Confirmed By:LAW ARAGON MD
[2017-10-21] MEDS: ATORVASTATIN CA 10 MG TABLET (FP) PO SCH (21:20)
[2017-10-21] MEDS: ESCITALOPRAM OXALATE 10 MG TABLET (FP) PO SCH (21:20)
[2017-10-22] MEDS: LEVOTHYROXINE NA 25 MCG TABLET (FP) PO SCH (06:01)
[2017-10-22 08:01] LABS: BASO % 0.5 % (0-2.0); HEMATOCRIT 41.3 % (32.4-45.2); LYMPH % 23.8 % (8-40); MCH 30.1 pg (25.7-33.7); MCHC 31.5 g/dl (32.0-36.0); MEAN CELL VOLUME 95.6 fl (80-96); MEAN PLT VOLUME 8.6 fl (7.5-11.1); MONO % 9.6 % (3.8-10.2); NEUT % 64.1 % (42.8-82.8); PLATELET COUNT 179 K/MM3 (134-434); RBC 4.32 M/mm3 (3.60-5.2); RDW 16.3 % (11.6-15.6); WHITE BLOOD COUNT 7.4 K/mm3 (4.0-10.0)
[2017-10-22 08:12] LABS: ANION GAP 6 (8-16); BLOOD UREA NITROGEN 19 mg/dL (7-18); CALCIUM 8.2 mg/dL (8.5-10.1); CHLORIDE 100 mmol/L (98-107); CO2 38 mmol/L (21-32); CREATININE 0.7 mg/dL (0.55-1.02); GLUCOSE,RANDOM 77 mg/dL (74-106); MAGNESIUM 2.2 mg/dL (1.8-2.4); PHOSPHOROUS 3.6 mg/dL (2.5-4.9); SODIUM 144 mmol/L (136-145)
[2017-10-22] MEDS: ASPIRIN 81 MG CHEWABLE TABLETS PO SCH (09:22)
[2017-10-22] MEDS: FUROSEMIDE 40 MG/4 ML INJECTABLE VIAL IVPUSH SCH (09:22)
[2017-10-22] MEDS: HEPARIN NA (PORCINE) 5,000 UNITS/ML 1ML VIAL SQ SCH ×2 (09:22→22:57)
[2017-10-22] MEDS: LOSARTAN POTASSIUM 100 MG TABLET PO SCH (09:22)
[2017-10-22] MEDS: METOPROLOL SUCCINATE 50 MG TAB.SR.24H (FP) PO SCH ×2 (09:22→22:48)
--- NOTE | 2017-10-22 10:21 | PN ---
Progress Note, Physician Chief Complaint: feels well Echo with normal EF but moderate PHTN - Current Medication List Current Medications: Active Medications Acetaminophen (Tylenol -) 325 mg PO Q6H PRN PRN Reason: FEVER OR PAIN Last Admin: 10/21/17 20:09 Dose: 325 mg Aspirin (Asa -) 162 mg PO DAILY [facility] Last Admin: 10/22/17 09:22 Dose: 162 mg Atorvastatin Calcium (Lipitor -) 10 mg PO HS [facility] Last Admin: 10/21/17 21:20 Dose: 10 mg Escitalopram Oxalate (Lexapro -) 5 mg PO HS [facility] Last Admin: 10/21/17 21:20 Dose: 5 mg Furosemide (Lasix Injection -) 40 mg IVPUSH DAILY [facility] Last Admin: 10/22/17 09:22 Dose: 40 mg Heparin Sodium (Porcine) (Heparin -) 5,000 unit SQ BID [facility] Last Admin: 10/22/17 09:22 Dose: 5,000 unit Levothyroxine Sodium (Synthroid -) 25 mcg PO DAILY@0700 [facility] Last Admin: 10/22/17 06:01 Dose: 25 mcg Losartan Potassium (Losartan Potassium) 100 mg PO DAILY [facility] Last Admin: 10/22/17 09:22 Dose: 100 mg Metoprolol Succinate (Toprol Xl -) 50 mg PO BID [facility] Last Admin: 10/22/17 09:22 Dose: 50 mg Polyethylene Glycol (Miralax (For Daily Use) -) 17 gm PO DAILY PRN PRN Reason: CONSTIPATION Last Admin: 10/20/17 21:37 Dose: 17 grams - Objective Vital Signs: Vital Signs Temperature 97.4 F L 10/22/17 08:38 Pulse Rate 85 10/22/17 10:04 Respiratory Rate 20 10/22/17 08:38 Blood Pressure 126/70 10/22/17 08:38 O2 Sat by Pulse Oximetry (%) 97 10/22/17 10:04 Constitutional: Yes: No Distress Cardiovascular: Yes: Regular Rate and Rhythm Respiratory: Yes: CTA Bilaterally Gastrointestinal: Yes: Soft, Abdomen, Obese Edema: Yes Edema: LLE: 1+, RLE: 1+ Neurological: Yes: Alert Labs: CBC, BMP 10/22/17 06:00 10/22/17 06:00 INR, PTT INR 1.05 (0.82-1.09) 10/19/17 15:06 Laboratory Tests 10/22/17 10/22/17 06:00 06:00 WBC 7.4 Hgb 13.0 Plt Count 179 Sodium 144 Potassium 4.0 BUN 19 H Creatinine 0.7 Phosphorus 3.6 Problem List - Problems (1) Acute on chronic diastolic CHF (congestive heart failure) Code(s): I50.33 - ACUTE ON CHRONIC DIASTOLIC (CONGESTIVE) HEART FAILURE (2) Permanent atrial fibrillation Code(s): I48.2 - CHRONIC ATRIAL FIBRILLATION (3) CAD (coronary artery disease) Code(s): I25.10 - ATHSCL HEART DISEASE OF [place] CORONARY ARTERY W/O ANG PCTRS Qualifiers: Coronary Disease-Associated Artery/Lesion type: [place] artery Associated angina: without angina (4) Aortic stenosis Code(s): I35.0 - NONRHEUMATIC AORTIC (VALVE) STENOSIS Qualifiers: Cardiac valve disease etiology: nonrheumatic Qualified Code(s): I35.0 - Nonrheumatic aortic (valve) stenosis (5) Hypertension Code(s): I10 - ESSENTIAL (PRIMARY) HYPERTENSION Qualifiers: Hypertension type: essential hypertension Qualified Code(s): I10 - Essential (primary) hypertension (6) Pulmonary hypertension Code(s): I27.20 - PULMONARY HYPERTENSION, UNSPECIFIED (7) Ascending aortic aneurysm Code(s): I71.2 - THORACIC AORTIC ANEURYSM, WITHOUT RUPTURE (8) Obesity Code(s): E66.9 - OBESITY, UNSPECIFIED Qualifiers: Obesity type: with alveolar hypoventilation Serious obesity comorbidity presence: without serious comorbidity (9) Hyperlipidemia Code(s): E78.5 - HYPERLIPIDEMIA, UNSPECIFIED Qualifiers: Hyperlipidemia type: unspecified Qualified Code(s): E78.5 - Hyperlipidemia , unspecified Assessment/Plan (1) Acute on chronic diastolic CHF (congestive heart failure) Assessment/Plan: -secondary to chronic hypertensive heart disease; Continue ARB -improved, switch to PO Lasix -Prior cath 2011 with non-obstructive CAD (2) Permanent atrial fibrillation Assessment/Plan: -Rate controlled, continue Toprol -Continue ASA therapy, not a candidate for full AC due to frequent home falls. (3) CAD (coronary artery disease) Assessment/Plan: -non-obstructive. -Continue ASA and statin. (4) Aortic stenosis Assessment/Plan: -chronic, now moderate. No further intervention is required at this time, plan to repeat echo in one year. (5) Hypertension Assessment/Plan: -currently adequately controlled -continue Losartan (6) Pulmonary hypertension, moderate Assessment/Plan: -Chronic and due to chronic diastolic CHF, obesity, possible LISY. Low suspicion for pulmonary embolism -Diuresis -LE venous duplex (7) Ascending aortic aneurysm Assessment/Plan: -Mild and stable at 4cm; no sig. AR. Likely no intervention required. -BP control, continue beta margy (8) Obesity Assessment/Plan: -Low sodium diet -Divemaster on modifying carb intake -Exercise capacity and mobility are limited by weight and chronic OA of knees, hips and lower back (9) Hyperlipidemia Assessment/Plan: -Continue Pravachol/ -Goal LDL < 100mg/dl
--- NOTE | 2017-10-22 13:49 | PN ---
Progress Note (short form) - Note Progress Note: Patient seen and examined Chart reviewed. Currently alert and responsive, lying supine in bed No new chest discomfort or respiratory distress. Labs, radiologic procedures and progress notes reviewed. Selected Entries 10/22/17 10/22/17 10/22/17 06:00 08:38 10:04 Temperature 97.4 F L Pulse Rate 85 Respiratory 20 Rate Blood Pressure 126/70 O2 Sat by Pulse 97 Oximetry (%) Oxygen Delivery Nasal Cannula Method Oxygen Flow 2 Rate Weight 240 lb 3.2 oz Laboratory Tests 10/20/17 10/20/17 10/22/17 05:50 05:50 06:00 WBC 7.4 Hgb 13.0 Hct 41.3 Plt Count 179 Sodium Potassium Chloride Carbon Dioxide BUN Creatinine Random Glucose Calcium Phosphorus Magnesium Total Bilirubin 0.5 AST 17 ALT 20 Alkaline Phosphatase 72 Creatine Kinase 204 H Creatine Kinase Index 2.2 CK-MB (CK-2) 4.495 H Troponin I 0.02 Total Protein 6.1 L Albumin 3.2 L 10/22/17 06:00 WBC Hgb Hct Plt Count Sodium 144 Potassium 4.0 Chloride 100 Carbon Dioxide 38 H BUN 19 H Creatinine 0.7 Random Glucose 77 Calcium 8.2 L Phosphorus 3.6 Magnesium 2.2 Total Bilirubin AST ALT Alkaline Phosphatase Creatine Kinase Creatine Kinase Index CK-MB (CK-2) Troponin I Total Protein Albumin Chest Clear Cor Irregular Abd Soft obese non-tender Ext Non-pitting edema Neuro No new focal deficit Assessment and Plan CHF Acute on chronic diastolic ASHD LVH with TR on ECHO AFib Not on formal AC Continue ASA Rate controlled B/L [place] cysts No DVT noted TAA Ascending aorta HPL Hypothyroid Obesity Pulmonary hypertension Monitor See ECHO report Continue current Rx Increase activity Monitor on oral diuretic therapy
[2017-10-22] MEDS: ESCITALOPRAM OXALATE 10 MG TABLET (FP) PO SCH (22:48)
[2017-10-22] MEDS: ATORVASTATIN CA 10 MG TABLET (FP) PO SCH (22:49)
[2017-10-22] MEDS: POLYETHYLENE GLYCOL 3350 119 GM BTL PO PRN (22:49)
[2017-10-23] MEDS: LEVOTHYROXINE NA 25 MCG TABLET (FP) PO SCH (06:09)
[2017-10-23 07:46] LABS: BASO % 0.6 % (0-2.0); EOS % 1.9 % (0-4.5); HEMATOCRIT 41.6 % (32.4-45.2); HEMOGLOBIN 13.3 GM/dL (10.7-15.3); LYMPH % 24.5 % (8-40); MCH 30.4 pg (25.7-33.7); MEAN PLT VOLUME 8.5 fl (7.5-11.1); MONO % 8.6 % (3.8-10.2); NEUT % 64.4 % (42.8-82.8); PLATELET COUNT 177 K/MM3 (134-434); RBC 4.38 M/mm3 (3.60-5.2); RDW 15.7 % (11.6-15.6); WHITE BLOOD COUNT 7.5 K/mm3 (4.0-10.0)
[2017-10-23 09:01] LABS: ANION GAP 1 (8-16); BLOOD UREA NITROGEN 22 mg/dL (7-18); CHLORIDE 100 mmol/L (98-107); CO2 39 mmol/L (21-32); GLUCOSE,RANDOM 77 mg/dL (74-106); MAGNESIUM 2.2 mg/dL (1.8-2.4); POTASSIUM 4.2 mmol/L (3.5-5.1); SODIUM 140 mmol/L (136-145)
[2017-10-23 09:04] LABS: ALK PHOS 70 U/L (45-117); BILIRUBIN,TOTAL 0.4 mg/dL (0.2-1.0); CREATININE 0.7 mg/dL (0.55-1.02); SGOT/AST 14 U/L (15-37); SGPT/ALT 19 U/L (12-78); TOT PROT 6.1 g/dl (6.4-8.2)
--- NOTE | 2017-10-23 09:44 | PN ---
Progress Note, Physician Chief Complaint: feels well Dopplers negative - Current Medication List Current Medications: Active Medications Acetaminophen (Tylenol -) 325 mg PO Q6H PRN PRN Reason: FEVER OR PAIN Last Admin: 10/21/17 20:09 Dose: 325 mg Aspirin (Asa -) 162 mg PO DAILY [facility] Last Admin: 10/22/17 09:22 Dose: 162 mg Atorvastatin Calcium (Lipitor -) 10 mg PO HS [facility] Last Admin: 10/22/17 22:49 Dose: 10 mg Escitalopram Oxalate (Lexapro -) 5 mg PO HS [facility] Last Admin: 10/22/17 22:48 Dose: 5 mg Furosemide (Lasix -) 40 mg PO DAILY [facility] Heparin Sodium (Porcine) (Heparin -) 5,000 unit SQ BID [facility] Last Admin: 10/22/17 22:57 Dose: 5,000 unit Levothyroxine Sodium (Synthroid -) 25 mcg PO DAILY@0700 [facility] Last Admin: 10/23/17 06:09 Dose: 25 mcg Losartan Potassium (Losartan Potassium) 100 mg PO DAILY [facility] Last Admin: 10/22/17 09:22 Dose: 100 mg Metoprolol Succinate (Toprol Xl -) 50 mg PO BID [facility] Last Admin: 10/22/17 22:48 Dose: 50 mg Polyethylene Glycol (Miralax (For Daily Use) -) 17 gm PO DAILY PRN PRN Reason: CONSTIPATION Last Admin: 10/22/17 22:49 Dose: 17 grams - Objective Vital Signs: Vital Signs Temperature 98.3 F 10/23/17 05:42 Pulse Rate 84 10/23/17 05:42 Respiratory Rate 20 10/23/17 05:42 Blood Pressure 154/60 10/23/17 05:42 O2 Sat by Pulse Oximetry (%) 95 10/22/17 21:00 Constitutional: Yes: Calm Cardiovascular: Yes: Regular Rate and Rhythm Respiratory: Yes: CTA Bilaterally Gastrointestinal: Yes: Soft Edema: No Neurological: Yes: Alert, Oriented Labs: CBC, BMP 10/23/17 06:00 10/23/17 06:00 INR, PTT INR 1.05 (0.82-1.09) 10/19/17 15:06 Laboratory Tests 10/23/17 10/23/17 06:00 06:00 WBC 7.5 Hgb 13.3 Plt Count 177 Potassium 4.2 Creatinine 0.7 Problem List - Problems (1) Acute on chronic diastolic CHF (congestive heart failure) Code(s): I50.33 - ACUTE ON CHRONIC DIASTOLIC (CONGESTIVE) HEART FAILURE (2) Permanent atrial fibrillation Code(s): I48.2 - CHRONIC ATRIAL FIBRILLATION (3) CAD (coronary artery disease) Code(s): I25.10 - ATHSCL HEART DISEASE OF [place] CORONARY ARTERY W/O ANG PCTRS Qualifiers: Coronary Disease-Associated Artery/Lesion type: [place] artery Associated angina: without angina (4) Aortic stenosis Code(s): I35.0 - NONRHEUMATIC AORTIC (VALVE) STENOSIS Qualifiers: Cardiac valve disease etiology: nonrheumatic Qualified Code(s): I35.0 - Nonrheumatic aortic (valve) stenosis (5) Hypertension Code(s): I10 - ESSENTIAL (PRIMARY) HYPERTENSION Qualifiers: Hypertension type: essential hypertension Qualified Code(s): I10 - Essential (primary) hypertension (6) Pulmonary hypertension Code(s): I27.20 - PULMONARY HYPERTENSION, UNSPECIFIED (7) Ascending aortic aneurysm Code(s): I71.2 - THORACIC AORTIC ANEURYSM, WITHOUT RUPTURE (8) Obesity Code(s): E66.9 - OBESITY, UNSPECIFIED Qualifiers: Obesity type: with alveolar hypoventilation Serious obesity comorbidity presence: without serious comorbidity (9) Hyperlipidemia Code(s): E78.5 - HYPERLIPIDEMIA, UNSPECIFIED Qualifiers: Hyperlipidemia type: unspecified Qualified Code(s): E78.5 - Hyperlipidemia , unspecified Assessment/Plan Assessment/Plan (1) Acute on chronic diastolic CHF (congestive heart failure) Assessment/Plan: -secondary to chronic hypertensive heart disease; Continue ARB -continue PO Lasix -Prior cath 2011 with non-obstructive CAD (2) Permanent atrial fibrillation Assessment/Plan: -Rate controlled, continue Toprol -Continue ASA therapy, not a candidate for full AC due to frequent home falls. (3) CAD (coronary artery disease) Assessment/Plan: -non-obstructive. -Continue ASA and statin. (4) Aortic stenosis Assessment/Plan: -chronic, now moderate. No further intervention is required at this time, plan to repeat echo in one year. (5) Hypertension Assessment/Plan: -currently adequately controlled -continue Losartan (6) Pulmonary hypertension, moderate Assessment/Plan: -Chronic and due to chronic diastolic CHF, obesity, possible LISY. Low suspicion for pulmonary embolism -Diuresis -LE venous duplex (7) Ascending aortic aneurysm Assessment/Plan: -Mild and stable at 4cm; no sig. AR. Likely no intervention required. 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
[2017-10-23] MEDS ORDERED: FUROSEMIDE 40 MG TABLET (FP) PO SCH (10:00)
[2017-10-23] MEDS: HEPARIN NA (PORCINE) 5,000 UNITS/ML 1ML VIAL SQ SCH (10:06)
[2017-10-23] MEDS: ASPIRIN 81 MG CHEWABLE TABLETS PO SCH (10:06)
[2017-10-23] MEDS: METOPROLOL SUCCINATE 50 MG TAB.SR.24H (FP) PO SCH (10:06)
[2017-10-23] MEDS: LOSARTAN POTASSIUM 100 MG TABLET PO SCH (10:06)
--- NOTE | 2017-10-23 12:59 | DS ---
Physical Examination Vital Signs: Vital Signs Temperature 36.9 C 10/23/17 09:00 Pulse Rate 91 H 10/23/17 09:00 Respiratory Rate 20 10/23/17 09:00 Blood Pressure 120/65 10/23/17 09:00 O2 Sat by Pulse Oximetry (%) 95 10/23/17 09:00 Constitutional: Yes: No Distress, Calm, Obese Cardiovascular: Yes: Regular Rate and Rhythm. No: Gallop, Murmur, Rub Respiratory: Yes: Regular, CTA Bilaterally. No: Rales, Rhonchi, Wheezes Gastrointestinal: Yes: Normal Bowel Sounds, Soft. No: Distention, Tenderness Extremities: Yes: WNL Edema: Yes Edema: LLE: 2+, RLE: 2+ Labs: CBC, BMP 10/23/17 06:00 10/23/17 06:00 Discharge Summary Reason For Visit: CHF Current Active Problems Acute on chronic diastolic CHF (congestive heart failure) (Acute) Aortic stenosis (Acute) Ascending aortic aneurysm (Acute) CAD (coronary artery disease) (Acute) CHF (congestive heart failure) (Acute) Hyperlipidemia (Acute) Hyperlipidemia (Acute) Hypertension (Acute) Hypertension (Acute) Hypothyroid (Acute) Obesity (Acute) Permanent atrial fibrillation (Acute) Pulmonary hypertension (Acute) Venous insufficiency (chronic) (peripheral) (Acute) Hospital Course: (1) Acute on chronic diastolic CHF (congestive heart failure) Code(s): I50.33 - ACUTE ON CHRONIC DIASTOLIC (CONGESTIVE) HEART FAILURE (2) CAD (coronary artery disease) Code(s): I25.10 - ATHSCL HEART DISEASE OF [place] CORONARY ARTERY W/O ANG PCTRS Qualifiers: Coronary Disease-Associated Artery/Lesion type: [place] artery Associated angina: without angina (3) Hypertension Code(s): I10 - ESSENTIAL (PRIMARY) HYPERTENSION (4) Hypothyroid Code(s): E03.9 - HYPOTHYROIDISM, UNSPECIFIED (5) Obesity Code(s): E66.9 - OBESITY, UNSPECIFIED Qualifiers: Obesity type: with alveolar hypoventilation Serious obesity comorbidity presence: without serious comorbidity Mrs Benítez is an 86 year old female who came in with CHF exacerbation, suspect secondary to dietary indiscretion. She was seen by cardiology and admitted to the hospital. She was diuresed with IV lasix and improved significantly. She was successfully transitioned to oral lasix. She has chronic edema and is now at baseline. Case d/w Dr Cedillo who agrees patient is stable for discharge home today with close follow up. Patient counselled on low salt diet. 31 minutes spent in preparation of this discharge Condition: Stable - Instructions Diet, Activity, Other Instructions: low salt diet. continue previous activity Referrals: Pranav Wright MD [Primary Care Provider] - Konrad Cedillo MD [Staff Physician] - Disposition: HOME - Home Medications Comprehensive Discharge Medication List: Ambulatory Orders Aspirin [Baby Aspirin] 162 mg PO DAILY 10/18/11 Losartan Potassium [Cozaar] 100 mg PO DAILY 08/12/12 Metoprolol Succinate [Toprol XL -] 50 mg PO BID 08/12/12 Furosemide [Lasix -] 40 mg PO DAILY 07/29/14 Levothyroxine [Synthroid -] 25 mcg PO DAILY 07/29/14 Pravastatin Sodium [Pravachol -] 40 mg PO HS 12/17/16 Escitalopram Oxalate [Lexapro -] 5 mg PO HS 10/20/17
[2017-10-23 14:34] VITALS: BP 112/64; PULSE 81; TEMP 98
== END 2017-10-23 17:50 | disposition home or self-care (01) | DRG 292 ==
LOC: JER 14:47 → JERBED 18:05 → J7W 10-20 19:11
PROVIDERS: ADMIT Specialist; ATTEND Specialist
DX: I11.0 Hypertensive heart disease with heart failure (principal); Z68.42 Body mass index [BMI] 45.0-49.9, adult; I50.33 Acute on chronic diastolic (congestive) heart failure; I71.2 Thoracic aortic aneurysm, without rupture; I35.0 Nonrheumatic aortic (valve) stenosis; E66.8 Other obesity; I48.2 Chronic atrial fibrillation; E78.5 Hyperlipidemia, unspecified; E03.9 Hypothyroidism, unspecified; M54.5 Low back pain; I27.20 Pulmonary hypertension, unspecified; I73.89 Other specified peripheral vascular diseases; I25.10 Atherosclerotic heart disease of native coronary artery without angina pectoris; K57.90 Diverticulosis of intestine, part unspecified, without perforation or abscess without bleeding; Z87.891 Personal history of nicotine dependence; Z85.3 Personal history of malignant neoplasm of breast
CPT/HCPCS: 36415; 71045-TC; 80048; 80053; 81003; 81015; 82550; 82553; 83735; 83880; 84100; 84484; 85025; 85610; 90688; 93005; 93010; 93306-TC; 93970-TC; 99285-25; J1644

== ENCOUNTER 2018-03-06 15:37 | Inpatient (IN) | payer OTHER ==
[2018-03-06 15:56] VITALS: BMI 46.8
--- NOTE | 2018-03-06 16:27 | PDOC ---
History of Present Illness - History of Present Illness Initial Comments: 03/06/18 16:25 86 yo F with h/o HLD, HTN, A-fib on ASA, 4cm Thoracic aneurysm, Breast CA BIBA R ankle injury s/p mechanical fall. Patient son at bedside to assist in report. states that patient was attempting transfer out of car and he was standing behind her when she rolled her right ankle and fell backwards. Pt. reports controlled fall while grabbing onto the door and the son reports assign/ lowering patietn to gorund. Denies LOC, or head/neck/back trauma or injury. Patient attempted ambulation following event with subsequent R ankle pain while at home; not able to ambulate steps. Patient ambulates with assistive devices; cane/walker. Denies h/o recent frequent falls. Denies F/C, THORNTON, vision change, N/V, cough, orthopnea, CP, SOB, abdominal pain, diarrhea, constipation, urinary complaints, weakness, lightheadedness, sensory changes. PMHx: as noted above. On ASA. ROS: as noted above SHx: Denies Etoh, tobacco, or IVDA <Ken Chong - Last Filed: 03/06/18 20:55> <Otto Kim - Last Filed: 03/08/18 08:58> - General Chief Complaint: Bone Injury Stated Complaint: FOOT INJURY Time Seen by Provider: 03/06/18 15:58 Past History - Past Medical History Anemia: No Asthma: No Cancer: Yes (LT BREAST) Cardiac Disorders: Yes (CHEST PAIN) CVA: No COPD: No CHF: No Dementia: No Diabetes: No GI Disorders: Yes (DIVERTICULITIS; H/O OF MULT TUBULAR ADENOMAS) Disorders: No HTN: Yes Hypercholesterolemia: Yes Liver Disease: No Seizures: No Thyroid Disease: Yes (HYPO) - Surgical History Abdominal Surgery: No Appendectomy: Yes Cardiac Surgery: No Cholecystectomy: No Lung Surgery: No Neurologic Surgery: No Orthopedic Surgery: No - Immunization History Immunization Up to Date: Yes - Suicide/Smoking/Psychosocial Hx Smoking Status: No Smoking History: Former smoker Have you smoked in the past 12 months: No Number of Cigarettes Smoked Daily: 0 If you are a former smoker, when did you quit?: stopped 11years ago Information on smoking cessation initiated: No 'Breaking Loose' booklet given: 06/07/12 Hx Alcohol Use: No Drug/Substance Use Hx: No Substance Use Type: None Hx Substance Use Treatment: No <Ken Chong - Last Filed: 03/06/18 20:55> <Otto Kim - Last Filed: 03/08/18 08:58> - Past Medical History Allergies/Adverse Reactions: Allergies Allergy/AdvReac Type Severity Reaction Status Date / Time No Known Drug Allergies Allergy Verified 02/11/18 13:34 Home Medications: Ambulatory Orders Aspirin [Baby Aspirin] 162 mg PO DAILY 10/18/11 Losartan Potassium [Cozaar] 100 mg PO DAILY 08/12/12 Metoprolol Succinate [Toprol XL -] 50 mg PO BID 08/12/12 Furosemide [Lasix -] 40 mg PO DAILY 07/29/14 Levothyroxine [Synthroid -] 25 mcg PO DAILY 07/29/14 Pravastatin Sodium [Pravachol -] 40 mg PO HS 12/17/16 Escitalopram Oxalate [Lexapro -] 5 mg PO HS 10/20/17 Review of Systems - Review of Systems Comments:: 03/06/18 16:26 GENERAL/CONSTITUTIONAL: No fever or chills. No weakness. HEAD, EYES, EARS, NOSE AND THROAT: No change in vision. No ear pain or discharge. No sore throat. CARDIOVASCULAR: No chest pain or shortness of breath RESPIRATORY: No cough, wheezing, or hemoptysis. GASTROINTESTINAL: No nausea, vomiting, diarrhea or constipation. GENITOURINARY: No dysuria, frequency, or change in urination. MUSCULOSKELETAL: + R ankle pain. No neck or back pain. SKIN: No rash NEUROLOGIC: No headache, vertigo, loss of consciousness, or change in strength/ sensation. ENDOCRINE: No increased thirst. No abnormal weight change HEMATOLOGIC/LYMPHATIC: No anemia, easy bleeding, or history of blood clots. ALLERGIC/IMMUNOLOGIC: No hives or skin allergy. <Ken Chong - Last Filed: 03/06/18 20:55> *Physical Exam - Vital Signs Last Vital Signs Temp Pulse Resp BP Pulse Ox 97.4 F L 76 20 105/61 93 L 03/06/18 15:50 03/06/18 15:50 03/06/18 15:50 03/06/18 15:50 03/06/18 15:50 - Physical Exam Comments: 03/06/18 16:26 GENERAL: Awake, alert, and fully oriented, in no acute distress HEAD: No signs of trauma, normocephalic, atraumatic EYES: PERRLA, EOMI, sclera anicteric, conjunctiva clear ENT: Absent C-spine ttp. Auricles normal inspection, hearing grossly normal, nares patent, oropharynx clear without exudates. Moist mucosa NECK: Normal ROM, supple, no lymphadenopathy, JVD, or masses LUNGS: No distress, speaks full sentences, clear to auscultation bilaterally HEART: Regular rate and rhythm, normal S1 and S2, no murmurs, rubs or gallops, peripheral pulses normal and equal bilaterally. EXTREMITIES : LLE- Normal inspection, Normal range of motion, no edema. No clubbing or cyanosis. RLE: Knee and ankle nonaligned. Rt. foot everted. Intact DP and PT pulses. R medial malleolus ttp and erythema. + Right medial foot abrasion. Nml active ROM. No obvious bony deformity. SKIN: Warm, Dry, normal turgor, no rashes or lesions noted <Ken Chong - Last Filed: 03/06/18 20:55> - Vital Signs Last Vital Signs Temp Pulse Resp BP Pulse Ox 98.4 F 76 20 122/72 94 L 03/08/18 05:29 03/08/18 05:29 03/08/18 05:29 03/08/18 05:29 03/07/18 21:00 <Otto Kim - Last Filed: 03/08/18 08:58> Moderate Sedation - Procedure Monitoring Vital Signs: Vital Signs Temp Pulse Resp BP Pulse Ox 98.4 F 76 20 122/72 94 L 03/08/18 05:29 03/08/18 05:29 03/08/18 05:29 03/08/18 05:29 03/07/18 21:00 <Otto Kim - Last Filed: 03/08/18 08:58> ED Treatment Course - LABORATORY CBC & Chemistry Diagram: 03/06/18 19:00 03/06/18 19:00 <Ken Chong - Last Filed: 03/06/18 20:55> - LABORATORY CBC & Chemistry Diagram: 03/08/18 06:25 03/08/18 06:25 - ADDITIONAL ORDERS Additional order review: 03/06/18 19:00 RBC 4.39 MCV 94.3 MCHC 33.5 RDW 15.5 MPV 8.4 Neutrophils % 75.2 D Lymphocytes % 15.9 D Monocytes % 7.7 Eosinophils % 0.8 Basophils % 0.4 - Medications Given in the ED: ED Medications Discontinued Medications Generic Name Dose Route Start Last Admin Trade Name Tavaresq PRN Reason Stop Dose Admin Acetaminophen 650 mg 03/06/18 16:48 03/06/18 16:51 Tylenol - PO 03/06/18 16:49 650 mg ONCE ONE Administration Acetaminophen 650 mg 03/06/18 20:31 03/06/18 20:40 Tylenol - PO 03/06/18 20:32 650 mg ONCE ONE Administration Ibuprofen 600 mg 03/06/18 20:31 03/06/18 20:39 Motrin - PO 03/06/18 20:32 600 mg ONCE ONE Administration Polyethylene Glycol 17 gm 03/07/18 18:28 03/07/18 18:00 Miralax (For Daily Use) - PO 03/07/18 18:29 17 gm ONCE ONE Administration <Otto Kim - Last Filed: 03/08/18 08:58> Medical Decision Making - Medical Decision Making 03/06/18 16:51 86 yo F with h/o HLD, HTN, A-fib on ASA, 4cm Thoracic aneurysm, Breast CA BIBA R ankle injury s/p mechanical fall. Patient now with R ankle medial malleolus ttp, and inability to bear weight in ED or following injury. VSS, A&OX3. No evidence of head/neck/back trauma or injury. Nexus criteria negative C spine. ED Course: Tylenol 650 mg PO R KNEE,ANKLE,FOOT RAD: 03/06/18 18:59 Initial R FOOT/ANKLE RAD: laterally displaced, non comminuted, distal fibular fracture., with lateral displacement of tibia relative to calcaneous. 03/06/18 19:10 Patient unable to bear weight or ambulate with device. Will admit. Ortho consult. 03/06/18 20:02 WBC: 11.7 CK: [address] Navarro Med/Surg. Patient stable and pain well controlled with Tylenol. <Ken Chong - Last Filed: 03/06/18 20:55> *DC/Admit/Observation/Transfer - Discharge Dispostion Decision to Admit order: Yes - Attestations Physician Attestion: 03/06/18 16:27 I attest to the information provided in this note. <Ken Chogn - Last Filed: 03/06/18 20:55> <Otto Kim - Last Filed: 03/08/18 08:58> Diagnosis at time of Disposition: Fracture dislocation of ankle Qualifiers: Encounter type: initial encounter Fracture type: closed Laterality: right Qualified Code(s): S82.891A - Other fracture of right lower leg, initial encounter for closed fracture
[2018-03-06] MEDS ORDERED: ACETAMINOPHEN 325 MG TABLET (FP) PO ONE ×2 (16:48→20:31)
[2018-03-06] MEDS ORDERED: ACETAMINOPHEN 325 MG TABLET (FP) ONE ×2 (16:52→20:36)
--- NOTE | 2018-03-06 18:19 | PDOC ---
Attending Attestation - Resident Resident Name: Jimmy Chongson - ED Attending Attestation I have performed the following: I have examined & evaluated the patient, The case was reviewed & discussed with the resident, I agree w/resident's findings & plan, Exceptions are as noted - HPI HPI: 03/06/18 18:14 87y F hx of afib presents sp mehcanical fall while getting out of the car. rolled/everted her ankle. no numbness/tingling/weankess. did not fall down, was helped by her family member. on exam pt has a deformed apeparing R ankle, n/v intact, bruising on medial ankle xray noted for distal fibular fractuer with ankle dislocation was reduced and splinted awaiting repeat xray pt has difficulty walking at baseline and will likely not be able to use crutches may need admission 03/06/18 19:53 post reduction xray reveals better anatomical psotiion sensation/vascular intact - Physicial Exam PE: 03/06/18 19:56 see above - Medical Decision Making 03/06/18 19:56 see above Procedures - Consent Consent obtained: Verbal - Splinting Splint Location: Right: Ankle Pre-Proc Neuro Vasc Exam: normal Hand-Made Type: orthoglass Splint Type: Yes: Posterior (posterior w. stirrup) Post-Proc Neuro Vasc Exam: normal Edin Bandage: yes, 4" Complications: No Post splint xray: Yes Good repositioning: Yes - Joint Reduction Right Pre-Procedure NV Exam: normal Conscious Sedation: No Reduction Attempts: 1 Procedure: Other Post-Procedure NV Exam: normal Complications: No Post Joint Reduction Film: joint reduced Splint: Yes Progress: 03/06/18 19:56 Joint Reduction Site: R ankle fracture/dislocation
[2018-03-06 19:14] LABS: BASO % 0.4 % (0-2.0); EOS % 0.8 % (0-4.5); HEMATOCRIT 41.4 % (32.4-45.2); HEMOGLOBIN 13.9 GM/dL (10.7-15.3); LYMPH % 15.9 % (8-40); MCH 31.6 pg (25.7-33.7); MCHC 33.5 g/dl (32.0-36.0); MEAN CELL VOLUME 94.3 fl (80-96); MEAN PLT VOLUME 8.4 fl (7.5-11.1); MONO % 7.7 % (3.8-10.2); NEUT % 75.2 % (42.8-82.8); PLATELET COUNT 186 K/MM3 (134-434); RBC 4.39 M/mm3 (3.60-5.2); RDW 15.5 % (11.6-15.6); WHITE BLOOD COUNT 11.7 K/mm3 (4.0-10.0)
[2018-03-06 19:42] LABS: ALBUMIN 3.3 g/dl (3.4-5.0); ANION GAP 5 (8-16); BILIRUBIN,TOTAL 0.6 mg/dL (0.2-1.0); BLOOD UREA NITROGEN 25 mg/dL (7-18); CALCIUM 8.9 mg/dL (8.5-10.1); CHLORIDE 100 mmol/L (98-107); CO2 35 mmol/L (21-32); GLUCOSE,RANDOM 110 mg/dL (74-106); POTASSIUM 3.7 mmol/L (3.5-5.1); SGOT/AST 38 U/L (15-37); SGPT/ALT 32 U/L (12-78); SODIUM 140 mmol/L (136-145); TOT PROT 6.4 g/dl (6.4-8.2)
[2018-03-06 19:43] LABS: ALK PHOS 84 U/L (45-117)
[2018-03-06] MEDS ORDERED: IBUPROFEN 600 MG TABLET (FP) PO ONE ×2 (20:31→20:36)
[2018-03-06 22:01] LABS: URINE APPEARANCE CLEAR; URINE BILIRUBIN NEGATIVE (<2.0 mg/dL); URINE COLOR YELLOW; URINE GLUCOSE (UA) NEGATIVE (NEGATIVE); URINE KETONE NEGATIVE (NEGATIVE); URINE LEUK ESTERASE TRACE (NEGATIVE); URINE NITRITE NEGATIVE (NEGATIVE); URINE PROTEIN NEGATIVE (NEGATIVE)
[2018-03-06 22:06] LABS: EPI CELLS RARE /HPF (FEW); URINE BACTERIA RARE /hpf (NONE SEEN); URINE HYALINE CAST 4 /lpf; URINE MUCUS RARE
[2018-03-07] MEDS: LEVOTHYROXINE NA 25 MCG TABLET (FP) PO SCH (06:10)
[2018-03-07 06:50] LABS: BASO % 0.5 % (0-2.0); EOS % 1.8 % (0-4.5); HEMATOCRIT 37.7 % (32.4-45.2); HEMOGLOBIN 12.7 GM/dL (10.7-15.3); LYMPH % 19.2 % (8-40); MCH 31.8 pg (25.7-33.7); MCHC 33.7 g/dl (32.0-36.0); MEAN CELL VOLUME 94.5 fl (80-96); MEAN PLT VOLUME 8.4 fl (7.5-11.1); MONO % 8.9 % (3.8-10.2); NEUT % 69.6 % (42.8-82.8); PLATELET COUNT 148 K/MM3 (134-434); RBC 3.99 M/mm3 (3.60-5.2); RDW 15.5 % (11.6-15.6); WHITE BLOOD COUNT 7.9 K/mm3 (4.0-10.0)
[2018-03-07 07:12] LABS: CHLORIDE 100 mmol/L (98-107); POTASSIUM 3.6 mmol/L (3.5-5.1); SODIUM 141 mmol/L (136-145)
[2018-03-07 07:27] LABS: ALBUMIN 2.9 g/dl (3.4-5.0); ALK PHOS 74 U/L (45-117); ANION GAP 6 (8-16); BILIRUBIN,TOTAL 0.7 mg/dL (0.2-1.0); BLOOD UREA NITROGEN 26 mg/dL (7-18); CALCIUM 8.4 mg/dL (8.5-10.1); CO2 35 mmol/L (21-32); CREATININE 0.9 mg/dL (0.55-1.02); GLUCOSE,RANDOM 103 mg/dL (74-106); SGOT/AST 31 U/L (15-37); SGPT/ALT 27 U/L (12-78); TOT PROT 5.6 g/dl (6.4-8.2)
[2018-03-07] MEDS: FUROSEMIDE 40 MG TABLET (FP) PO SCH (09:34)
[2018-03-07] MEDS: HEPARIN NA (PORCINE) 5,000 UNITS/ML 1ML VIAL SQ SCH ×2 (09:34→22:10)
[2018-03-07] MEDS: LOSARTAN POTASSIUM 50 MG TABLET (FP) PO SCH (09:34)
--- NOTE | 2018-03-07 11:46 | HP ---
Admitting History and Physical - Admission Chief Complaint: fall, right ankle pain History of Present Illness: 87 yo female in [place] until getting into a car yesterday. As she put her left leg into the car her right leg slipped on the wet pavement and twisted under her. In ED noted to have displaced right ankle fracture. Leg was reduced and now in cast. Notes some pain overnight, feeling a little better with tylenol. History Source: Patient, Medical Record Limitations to Obtaining History: No Limitations - Past Medical History Cardiovascular: Yes: CAD (non-obstx 2011), CHF, HTN, Hyperlipdemia, Other ( chronic venous insufficiency bilateral legs) Gastrointestinal: Yes: Diverticulitis, Diverticulosis ...: No Heme/Onc: Yes: Cancer (left breast) Musculoskeletal: Yes: Chronic low back pain Endocrine: Yes: Hypothyroidism - Past Surgical History Past Surgical History: Yes: Appendectomy, Mastectomy (left) - Smoking History Smoking history: Former smoker Have you smoked in the past 12 months: No Aproximately how many cigarettes per day: 0 If you are a former smoker, when did you quit?: stopped 11years ago - Alcohol/Substance Use Hx Alcohol Use: No - Social History History of Recent Travel: No Home Medications - Allergies Allergies/Adverse Reactions: Allergies Allergy/AdvReac Type Severity Reaction Status Date / Time No Known Drug Allergies Allergy Verified 02/11/18 13:34 - Home Medications Home Medications: Ambulatory Orders Aspirin [Baby Aspirin] 162 mg PO DAILY 10/18/11 Losartan Potassium [Cozaar] 100 mg PO DAILY 08/12/12 Metoprolol Succinate [Toprol XL -] 50 mg PO BID 08/12/12 Furosemide [Lasix -] 40 mg PO DAILY 07/29/14 Levothyroxine [Synthroid -] 25 mcg PO DAILY 07/29/14 Pravastatin Sodium [Pravachol -] 40 mg PO HS 12/17/16 Escitalopram Oxalate [Lexapro -] 5 mg PO HS 10/20/17 Family Disease History - Family Disease History Family Disease History: Heart Disease: Mother, Brother Review of Systems - Review of Systems Constitutional: denies: Chills, Fever, Loss of Appetite, Unintentional Wgt. Loss Eyes: reports: No Symptoms HENT: denies: Difficult Swallowing, Epistaxis, Throat Pain Neck: denies: Stiffness, Tenderness Cardiovascular: denies: Chest Pain, Palpitations Respiratory: denies: Cough, SOB, Wheezing Gastrointestinal: denies: Abdominal Pain, Constipation, Diarrhea, Nausea, Vomiting Genitourinary: denies: Burning, Discharge, Dysuria Physical Examination Vital Signs: Vital Signs Temperature 98 F 03/07/18 06:32 Pulse Rate 86 03/07/18 06:32 Respiratory Rate 19 03/07/18 06:32 Blood Pressure 129/69 03/07/18 06:32 O2 Sat by Pulse Oximetry (%) 95 03/07/18 00:45 Constitutional: Yes: Well Nourished, No Distress, Calm Eyes: Yes: Conjunctiva Clear, EOM Intact, PERRL HENT: Yes: Atraumatic, Normocephalic Neck: Yes: Supple, Trachea Midline Cardiovascular: Yes: Regular Rate and Rhythm, S1, S2. No: Murmur Respiratory: Yes: Regular, CTA Bilaterally. No: Rales, Rhonchi, Wheezes Gastrointestinal: Yes: Normal Bowel Sounds, Soft. No: Distention, Tenderness Extremities: Yes: Other (right lower lag and foot with immobilizer/ wrap) Neurological: Yes: Alert, Oriented Labs: CBC, BMP 03/07/18 06:00 03/07/18 06:00 Imaging - Results X-ray: Report Reviewed (right ankle: displaced fracture with soft tissue sweling right knee with possible distal femur fracture) Problem List - Problems (1) Fibula fracture Assessment/Plan: -ortho to consult -may have femur fracture as well -as cannot walk up steps, may need STR following hospitalization Code(s): S82.409A - UNSP FRACTURE OF SHAFT OF UNSP FIBULA, INIT FOR CLOS FX (2) CAD (coronary artery disease) Assessment/Plan: -aspirin on hold until determined whether needs further surgery 9then can restart) Code(s): I25.10 - ATHSCL HEART DISEASE OF [place] CORONARY ARTERY W/O ANG PCTRS Qualifiers: Coronary Disease-Associated Artery/Lesion type: [place] artery Associated angina: without angina (3) CHF (congestive heart failure) Assessment/Plan: -stable, no acute exacerbation currently Code(s): I50.9 - HEART FAILURE, UNSPECIFIED Qualifiers: Heart failure type: diastolic Heart failure chronicity: chronic Qualified Code(s): I50.32 - Chronic diastolic (congestive) heart failure (4) Hypertension Assessment/Plan: -on antihypertensives Code(s): I10 - ESSENTIAL (PRIMARY) HYPERTENSION Qualifiers: Hypertension type: essential hypertension Qualified Code(s): I10 - Essential (primary) hypertension (5) Hypothyroid Assessment/Plan: -on synthroid Code(s): E03.9 - HYPOTHYROIDISM, UNSPECIFIED
--- NOTE | 2018-03-07 15:16 | CON.ORTH ---
Consult Reason for Consultation:: right ankle fx - Past Medical History Cardio/Vascular: Yes: CAD (non-obstx 2011), CHF, HTN, Hyperlipdemia, Other ( chronic venous insufficiency bilateral legs) Gastrointestinal: Yes: Diverticulitis, Diverticulosis ...: No Musculoskeletal: Yes: Chronic low back pain Endocrine: Yes: Hypothyroidism - Past Surgical History Past Surgical History: Yes: Appendectomy, Mastectomy (left) - Alcohol/Substance Use Hx Alcohol Use: No - Smoking History Smoking history: Former smoker Have you smoked in the past 12 months: No Aproximately how many cigarettes per day: 0 If you are a former smoker, when did you quit?: stopped 11years ago - Social History History of Recent Travel: No Home Medications - Allergies Allergies/Adverse Reactions: Allergies Allergy/AdvReac Type Severity Reaction Status Date / Time No Known Drug Allergies Allergy Verified 02/11/18 13:34 - Home Medications Home Medications: Ambulatory Orders Aspirin [Baby Aspirin] 162 mg PO DAILY 10/18/11 Losartan Potassium [Cozaar] 100 mg PO DAILY 08/12/12 Metoprolol Succinate [Toprol XL -] 50 mg PO BID 08/12/12 Furosemide [Lasix -] 40 mg PO DAILY 07/29/14 Levothyroxine [Synthroid -] 25 mcg PO DAILY 07/29/14 Pravastatin Sodium [Pravachol -] 40 mg PO HS 12/17/16 Escitalopram Oxalate [Lexapro -] 5 mg PO HS 10/20/17 Family Disease History - Family Disease History Family Disease History: Heart Disease: Mother, Brother Physical Exam for Ortho Vital Signs: Vital Signs Temperature 98 F 03/07/18 06:32 Pulse Rate 86 03/07/18 06:32 Respiratory Rate 19 03/07/18 06:32 Blood Pressure 129/69 03/07/18 06:32 O2 Sat by Pulse Oximetry (%) 95 03/07/18 00:45 Labs: CBC, BMP 03/07/18 06:00 03/07/18 06:00 - Lower Extremity Ankle: Yes: Right, Assymetrical, Deformity, Limited ROM, Pain, Swelling, Tenderness, Other (nvi) Imaging - Results X-ray: Report Reviewed, Image Reviewed Assessment/Plan 86 yo F with h/o HLD, HTN, A-fib on ASA, 4cm Thoracic aneurysm, Breast CA BIBA R ankle injury s/p mechanical fall. Right ankle reduction in ER with slight improvement. a/p Right displaced distal fibula fx with syndesmosis rupture Risks and benefits were d/w pt and daughter in detail Will need right ankle orif surgical clearance OR tentatively for Thursday- swelling needs to decr as well as needs cardiac clearance Strict elevation pain control d/w Dr. Hernandez
[2018-03-07] MEDS: IBUPROFEN 600 MG TABLET (FP) PO PRN (18:14)
[2018-03-07] MEDS ORDERED: POLYETHYLENE GLYCOL 3350 119 GM BTL PO ONE (18:28)
[2018-03-07] MEDS: ATORVASTATIN CA 10 MG TABLET (FP) PO SCH (22:11)
[2018-03-07] MEDS: ESCITALOPRAM OXALATE 10 MG TABLET (FP) PO SCH (22:11)
[2018-03-08] MEDS: LEVOTHYROXINE NA 25 MCG TABLET (FP) PO SCH (06:00)
[2018-03-08 06:53] LABS: BASO % 0.7 % (0-2.0); EOS % 2.7 % (0-4.5); HEMATOCRIT 39.9 % (32.4-45.2); HEMOGLOBIN 13.4 GM/dL (10.7-15.3); LYMPH % 20.7 % (8-40); MCH 31.9 pg (25.7-33.7); MCHC 33.6 g/dl (32.0-36.0); MEAN PLT VOLUME 8.3 fl (7.5-11.1); MONO % 9.6 % (3.8-10.2); NEUT % 66.3 % (42.8-82.8); PLATELET COUNT 152 K/MM3 (134-434); RDW 15.4 % (11.6-15.6); WHITE BLOOD COUNT 8.3 K/mm3 (4.0-10.0)
[2018-03-08 07:11] LABS: ALBUMIN 2.9 g/dl (3.4-5.0); BLOOD UREA NITROGEN 19 mg/dL (7-18); CALCIUM 8.4 mg/dL (8.5-10.1); CHLORIDE 102 mmol/L (98-107); POTASSIUM 3.7 mmol/L (3.5-5.1); SODIUM 143 mmol/L (136-145)
[2018-03-08 07:16] LABS: ALK PHOS 75 U/L (45-117); ANION GAP 5 (8-16); BILIRUBIN,TOTAL 0.6 mg/dL (0.2-1.0); CO2 36 mmol/L (21-32); CREATININE 0.8 mg/dL (0.55-1.02); GLUCOSE,RANDOM 92 mg/dL (74-106); SGOT/AST 27 U/L (15-37); SGPT/ALT 26 U/L (12-78)
--- NOTE | 2018-03-08 09:03 | CON.CARD ---
Cardiology Consult (text) - Consultation Consultation Note: Cardiology Consult Dictated IMP: Right ankle fracture secondary to fall Permanent AF, not on AC Small ascending aortic aneurysm Chronic diastolic CHF REC: There are currently no absolute cardiac contraindications to surgery. Will obtain echo today, surgery planned for tomorrow. Final periop reccs to follow.
[2018-03-08] MEDS: LOSARTAN POTASSIUM 50 MG TABLET (FP) PO SCH (10:24)
[2018-03-08] MEDS: FUROSEMIDE 40 MG TABLET (FP) PO SCH (10:25)
[2018-03-08] MEDS: HEPARIN NA (PORCINE) 5,000 UNITS/ML 1ML VIAL SQ SCH ×2 (10:25→21:46)
--- NOTE | 2018-03-08 11:22 | PN ---
Progress Note (short form) - Note Progress Note: Ortho Pt seen and examined s/p right ankle fx splint intact, nvi a/p OR for tomorrow if cleared NPO after midnight surgical clearance strict elevation d/w Dr. Hernandez
--- NOTE | 2018-03-08 11:45 | CONS ---
DATE OF CONSULTATION: 03/08/2018 REQUESTING PHYSICIAN: Adin Navarro MD REASON FOR CONSULTATION: Perioperative evaluation. HISTORY: The patient is an 87-year-old female well known to me from office and prior hospitalizations with a past medical history of obesity, chronic diastolic CHF, hypertension, pulmonary hypertension, permanent atrial fibrillation not on anticoagulation due to prior history of falls, and a small, stable, ascending aortic aneurysm of around 4 cm. While at a wedding wearing heels, she fell fracturing her right ankle, and surgery is required. She denies antecedent chest pain, palpitations, or loss of consciousness. This was a mechanical fall. She has fallen over the years, which is why we have made the decision together with her family to avoid anticoagulation. Surgery is planned for tomorrow to allow time for her edema to subside. She is currently comfortable in no acute distress. ALLERGIES: She has no known drug allergies. HOME MEDICATIONS: Include Pravachol 40 mg nightly, Toprol 50 mg p.o. b.i.d., losartan 100 mg p.o. daily, Synthroid 25 mcg p.o. daily, Lasix 40 mg p.o. daily, Lexapro 5 mg p.o. daily, and baby aspirin as well, which has now been held in preparation for surgery. She is also on subcutaneous heparin now for DVT prophylaxis. FAMILY HISTORY: Noncontributory. SOCIAL HISTORY: She is a former smoker. Lives with her family. PHYSICAL EXAMINATION: Vital Signs: She is afebrile, 98.4, blood pressure 122/72, oxygen 94-95 on room air. Neck: No JVD. Heart: S1, S2. Irregular. Chest: Clear. Abdomen: Obese, soft. Extremities: Have 1+ chronic lower extremity edema. EKG: Atrial fibrillation at 75 beats per minute with no acute ST changes. Chronic, nonspecific ST changes. White count 8.3, hematocrit 39, platelets 152. Sodium 143, potassium 3.7, BUN 19, creatinine 0.8. LFTs are normal. Urinalysis showed trace leukocyte esterase but, otherwise, negative for nitrites. IMPRESSION: 1. Permanent atrial fibrillation not on anticoagulation. 2. Chronic diastolic congestive heart failure secondary to hypertension. 3. Pulmonary hypertension. 4. Stable, small ascending aortic aneurysm. 5. Right ankle fracture status post mechanical fall. PLAN: Currently, there are no absolute cardiac contraindications to the planned procedure. The patient has normal LV function with no history of significant aortic stenosis. Her atrial fibrillation is under control, and she is currently not in decompensated CHF. We will obtain a repeat echocardiogram to assess for any change; however, surgery can proceed as planned tomorrow. Would continue her home blood pressure medications and beta-margy. She should take her morning medications with a sip of water. DVT prophylaxis as per Orthopaedics. We will follow closely postoperatively for rhythm control and to assess volume status. Thank you for the consultation. MIGUEL BANDA M.D. [id number]
--- NOTE | 2018-03-08 13:16 | PN ---
Progress Note, Physician Chief Complaint: Ms Benítez says she has pain in her ankle but otherwise is doing well. No cp, sob , n/v. - Current Medication List Current Medications: Active Medications Atorvastatin Calcium (Lipitor -) 10 mg PO HS [facility] Last Admin: 03/07/18 22:11 Dose: 10 mg Escitalopram Oxalate (Lexapro -) 5 mg PO HS [facility] Last Admin: 03/07/18 22:11 Dose: 5 mg Furosemide (Lasix -) 40 mg PO DAILY [facility] Last Admin: 03/08/18 10:25 Dose: 40 mg Heparin Sodium (Porcine) (Heparin -) 5,000 unit SQ BID [facility] Last Admin: 03/08/18 10:25 Dose: 5,000 unit Ibuprofen (Motrin -) 600 mg PO Q6H PRN PRN Reason: FEVER Last Admin: 03/07/18 18:14 Dose: 600 mg Levothyroxine Sodium (Synthroid -) 25 mcg PO DAILY@0700 [facility] Last Admin: 03/08/18 06:00 Dose: 25 mcg Losartan Potassium (Cozaar -) 100 mg PO DAILY [facility] Last Admin: 03/08/18 10:24 Dose: 100 mg Metoprolol Succinate (Toprol Xl -) 50 mg PO BID [facility] Last Admin: 03/08/18 10:24 Dose: 50 mg - Objective Vital Signs: Vital Signs Temperature 36.9 C 03/08/18 10:00 Pulse Rate 74 03/08/18 10:00 Respiratory Rate 18 03/08/18 10:00 Blood Pressure 124/60 03/08/18 10:00 O2 Sat by Pulse Oximetry (%) 92 L 03/08/18 09:00 Constitutional: Yes: Well Nourished, No Distress, Calm Cardiovascular: Yes: Regular Rate and Rhythm. No: Gallop, Murmur, Rub Respiratory: Yes: Regular, CTA Bilaterally. No: Rales, Rhonchi, Wheezes Gastrointestinal: Yes: Normal Bowel Sounds, Soft. No: Distention, Tenderness Extremities: Yes: WNL Edema: No Labs: CBC, BMP 03/08/18 06:25 03/08/18 06:25 Problem List - Problems (1) Fracture dislocation of ankle Assessment/Plan: -secondary to fall -appreciate ortho assistance -plan for surgery tomorrow -seen by cardiology and cleared Code(s): S82.899A - OTH FRACTURE OF UNSP LOWER LEG, INIT FOR CLOS FX Qualifiers: Encounter type: initial encounter Fracture type: closed Laterality: right Qualified Code(s): S82.891A - Other fracture of right lower leg, initial encounter for closed fracture (2) CAD (coronary artery disease) Assessment/Plan: -quiescent -seen by cardiology -continue current regimen Code(s): I25.10 - ATHSCL HEART DISEASE OF [place] CORONARY ARTERY W/O ANG PCTRS Qualifiers: Coronary Disease-Associated Artery/Lesion type: [place] artery Associated angina: without angina (3) CHF (congestive heart failure) Assessment/Plan: -continue lasix, toprol xl, and losartan Code(s): I50.9 - HEART FAILURE, UNSPECIFIED Qualifiers: Heart failure type: diastolic Heart failure chronicity: chronic Qualified Code(s): I50.32 - Chronic diastolic (congestive) heart failure (4) Hyperlipidemia Assessment/Plan: -continue statin Code(s): E78.5 - HYPERLIPIDEMIA, UNSPECIFIED (5) Hypertension Assessment/Plan: -very well controlled Code(s): I10 - ESSENTIAL (PRIMARY) HYPERTENSION (6) Hypothyroid Assessment/Plan: -continue levothyroxine Code(s): E03.9 - HYPOTHYROIDISM, UNSPECIFIED (7) Pulmonary hypertension Code(s): I27.20 - PULMONARY HYPERTENSION, UNSPECIFIED
[2018-03-08] MEDS: IBUPROFEN 600 MG TABLET (FP) PO PRN (16:37)
[2018-03-08] MEDS: ESCITALOPRAM OXALATE 10 MG TABLET (FP) PO SCH (21:45)
[2018-03-08] MEDS: ATORVASTATIN CA 10 MG TABLET (FP) PO SCH (21:46)
--- NOTE | 2018-03-09 00:28 | EKG ---
Test Reason : Blood Pressure : / mmHG Vent. Rate : 075 BPM Atrial Rate : 059 BPM P-R Int : 000 ms QRS Dur : 086 ms QT Int : 404 ms P-R-T Axes : 000 018 028 degrees QTc Int : 451 ms ATRIAL FIBRILLATION ABNORMAL ECG WHEN COMPARED WITH ECG OF 11-FEB-2018 14:27, NO SIGNIFICANT CHANGE WAS FOUND Confirmed by PRASHANT JEAN-BAPTISTE MD ([id number]) on 03/09/2018 12:27:52 AM Referred By: Confirmed By:PRASHANT JEAN-BAPTISTE MD
[2018-03-09] MEDS: LEVOTHYROXINE NA 25 MCG TABLET (FP) PO SCH (06:53)
[2018-03-09 08:01] LABS: BASO % 0.6 % (0-2.0); EOS % 3.5 % (0-4.5); HEMATOCRIT 38.4 % (32.4-45.2); HEMOGLOBIN 12.9 GM/dL (10.7-15.3); LYMPH % 21.4 % (8-40); MCHC 33.5 g/dl (32.0-36.0); MEAN CELL VOLUME 95.3 fl (80-96); MEAN PLT VOLUME 8.5 fl (7.5-11.1); MONO % 9.2 % (3.8-10.2); NEUT % 65.3 % (42.8-82.8); PLATELET COUNT 153 K/MM3 (134-434); RBC 4.03 M/mm3 (3.60-5.2); RDW 15.7 % (11.6-15.6)
[2018-03-09 08:21] LABS: CHLORIDE 103 mmol/L (98-107); POTASSIUM 3.8 mmol/L (3.5-5.1); SODIUM 142 mmol/L (136-145)
--- NOTE | 2018-03-09 08:38 | PN ---
Progress Note, Physician Chief Complaint: TELE: rate controlled AF She denies CP, SOB History of Present Illness: Echo: normal LV/RV fx. Chronic PHTN. Moderate MR, Mild . No sig gradient - Current Medication List Current Medications: Active Medications Atorvastatin Calcium (Lipitor -) 10 mg PO HS [facility] Last Admin: 03/08/18 21:46 Dose: 10 mg Escitalopram Oxalate (Lexapro -) 5 mg PO HS [facility] Last Admin: 03/08/18 21:45 Dose: 5 mg Furosemide (Lasix -) 40 mg PO DAILY [facility] Last Admin: 03/08/18 10:25 Dose: 40 mg Heparin Sodium (Porcine) (Heparin -) 5,000 unit SQ BID [facility] Last Admin: 03/08/18 21:46 Dose: 5,000 unit Ibuprofen (Motrin -) 600 mg PO Q6H PRN PRN Reason: FEVER Last Admin: 03/08/18 16:37 Dose: 600 mg Levothyroxine Sodium (Synthroid -) 25 mcg PO DAILY@0700 [facility] Last Admin: 03/09/18 06:53 Dose: 25 mcg Losartan Potassium (Cozaar -) 100 mg PO DAILY [facility] Last Admin: 03/08/18 10:24 Dose: 100 mg Metoprolol Succinate (Toprol Xl -) 50 mg PO BID [facility] Last Admin: 03/08/18 21:46 Dose: 50 mg - Objective Vital Signs: Vital Signs Temperature 98.1 F 03/09/18 02:00 Pulse Rate 87 03/09/18 06:00 Respiratory Rate 20 03/09/18 06:00 Blood Pressure 140/75 03/09/18 06:00 O2 Sat by Pulse Oximetry (%) 93 L 03/08/18 20:27 Constitutional: Yes: Calm Cardiovascular: Yes: Pulse Irregular Respiratory: Yes: CTA Bilaterally Gastrointestinal: Yes: Soft, Abdomen, Obese Edema: Yes Edema: LLE: 1+ (chronic), RLE: 1+ (chronic) Neurological: Yes: Alert, Oriented Labs: CBC, BMP 03/09/18 07:25 03/09/18 07:25 Laboratory Tests 03/09/18 03/09/18 07:25 07:25 WBC 8.0 Hgb 12.9 Plt Count 153 Sodium 142 Potassium 3.8 Creatinine Pending - ....Imaging EKG: Image Reviewed Assessment/Plan IMP: Right ankle fracture secondary to fall Permanent AF, not on AC due to falls Small ascending aortic aneurysm Chronic diastolic CHF Chronic PHTN REC: No absolute cardiac contraindications to surgery: -AF is rate controlled. -She is not in decompensated CHF -BP is well controlled -LVEF is normal and there is no sig . Monitor closely post op for volume overload. DVT prophylaxis.
[2018-03-09 09:15] LABS: ANION GAP 6 (8-16); BLOOD UREA NITROGEN 15 mg/dL (7-18); CALCIUM 7.9 mg/dL (8.5-10.1); CO2 33 mmol/L (21-32); CREATININE 0.7 mg/dL (0.55-1.02); GLUCOSE,RANDOM 94 mg/dL (74-106); PHOSPHOROUS 3.1 mg/dL (2.5-4.9)
[2018-03-09 09:16] LABS: MAGNESIUM 2.4 mg/dL (1.8-2.4)
[2018-03-09] MEDS: LOSARTAN POTASSIUM 50 MG TABLET (FP) PO SCH (11:00)
[2018-03-09] MEDS: FUROSEMIDE 40 MG TABLET (FP) PO SCH (11:00)
[2018-03-09] MEDS: HEPARIN NA (PORCINE) 5,000 UNITS/ML 1ML VIAL SQ SCH (11:00)
--- NOTE | 2018-03-09 11:16 | PN ---
Progress Note, Physician Chief Complaint: Ms Benítez says she is feeling weak but otherwise is without complaint. No cp, sob, n/v. - Current Medication List Current Medications: Active Medications Atorvastatin Calcium (Lipitor -) 10 mg PO HS [facility] Last Admin: 03/08/18 21:46 Dose: 10 mg Escitalopram Oxalate (Lexapro -) 5 mg PO HS [facility] Last Admin: 03/08/18 21:45 Dose: 5 mg Furosemide (Lasix -) 40 mg PO DAILY [facility] Last Admin: 03/08/18 10:25 Dose: 40 mg Heparin Sodium (Porcine) (Heparin -) 5,000 unit SQ BID [facility] Last Admin: 03/08/18 21:46 Dose: 5,000 unit Ibuprofen (Motrin -) 600 mg PO Q6H PRN PRN Reason: FEVER Last Admin: 03/08/18 16:37 Dose: 600 mg Levothyroxine Sodium (Synthroid -) 25 mcg PO DAILY@0700 [facility] Last Admin: 03/09/18 06:53 Dose: 25 mcg Losartan Potassium (Cozaar -) 100 mg PO DAILY [facility] Last Admin: 03/08/18 10:24 Dose: 100 mg Metoprolol Succinate (Toprol Xl -) 50 mg PO BID [facility] Last Admin: 03/08/18 21:46 Dose: 50 mg - Objective Vital Signs: Vital Signs Temperature 36.7 C 03/09/18 02:00 Pulse Rate 87 03/09/18 06:00 Respiratory Rate 20 03/09/18 06:00 Blood Pressure 140/75 03/09/18 06:00 O2 Sat by Pulse Oximetry (%) 93 L 03/08/18 20:27 Constitutional: Yes: No Distress, Calm, Obese Cardiovascular: Yes: Pulse Irregular. No: Tachycardia, Gallop, Murmur, Rub Respiratory: Yes: Regular, CTA Bilaterally. No: Rales, Rhonchi, Wheezes Gastrointestinal: Yes: Normal Bowel Sounds, Soft. No: Distention, Tenderness Extremities: Yes: WNL Edema: No Labs: CBC, BMP 03/09/18 07:25 03/09/18 07:25 Problem List - Problems (1) Fracture dislocation of ankle Code(s): S82.899A - OTH FRACTURE OF UNSP LOWER LEG, INIT FOR CLOS FX Qualifiers: Encounter type: initial encounter Fracture type: closed Laterality: right Qualified Code(s): S82.891A - Other fracture of right lower leg, initial encounter for closed fracture (2) CAD (coronary artery disease) Code(s): I25.10 - ATHSCL HEART DISEASE OF [place] CORONARY ARTERY W/O ANG PCTRS Qualifiers: Coronary Disease-Associated Artery/Lesion type: [place] artery Associated angina: without angina (3) CHF (congestive heart failure) Code(s): I50.9 - HEART FAILURE, UNSPECIFIED Qualifiers: Heart failure type: diastolic Heart failure chronicity: chronic Qualified Code(s): I50.32 - Chronic diastolic (congestive) heart failure (4) Hyperlipidemia Code(s): E78.5 - HYPERLIPIDEMIA, UNSPECIFIED (5) Hypertension Code(s): I10 - ESSENTIAL (PRIMARY) HYPERTENSION (6) Hypothyroid Code(s): E03.9 - HYPOTHYROIDISM, UNSPECIFIED (7) Pulmonary hypertension Code(s): I27.20 - PULMONARY HYPERTENSION, UNSPECIFIED Assessment/Plan (1) Fracture dislocation of ankle Assessment/Plan: -secondary to fall -appreciate ortho assistance -plan for surgical intervention today -will need SNF placement after cleared by surgery Code(s): S82.899A - OTH FRACTURE OF UNSP LOWER LEG, INIT FOR CLOS FX Qualifiers: Encounter type: initial encounter Fracture type: closed Laterality: right Qualified Code(s): S82.891A - Other fracture of right lower leg, initial encounter for closed fracture (2) CAD (coronary artery disease) Assessment/Plan: -quiescent -seen by cardiology -continue current regimen Code(s): I25.10 - ATHSCL HEART DISEASE OF [place] CORONARY ARTERY W/O ANG PCTRS Qualifiers: Coronary Disease-Associated Artery/Lesion type: [place] artery Associated angina: without angina (3) CHF (congestive heart failure) Assessment/Plan: -continue lasix, toprol xl, and losartan Code(s): I50.9 - HEART FAILURE, UNSPECIFIED Qualifiers: Heart failure type: diastolic Heart failure chronicity: chronic Qualified Code(s): I50.32 - Chronic diastolic (congestive) heart failure (4) Hyperlipidemia Assessment/Plan: -continue statin Code(s): E78.5 - HYPERLIPIDEMIA, UNSPECIFIED (5) Hypertension Assessment/Plan: -very well controlled Code(s): I10 - ESSENTIAL (PRIMARY) HYPERTENSION (6) Hypothyroid Assessment/Plan: -continue levothyroxine Code(s): E03.9 - HYPOTHYROIDISM, UNSPECIFIED (7) Pulmonary hypertension Code(s): I27.20 - PULMONARY HYPERTENSION, UNSPECIFIED
[2018-03-09] MEDS ORDERED: ROPIVACAINE HCL 0.5% 30ML VIAL ONE (15:02)
[2018-03-09] MEDS ORDERED: MIDAZOLAM HCL 2 MG/2 ML SINGLE DOSE VIAL ONE ×2 (15:06→16:26)
[2018-03-09] MEDS ORDERED: BUPIVACAINE 0.75% IN DEXTROSE/PF 2ML AMPULE NR ONE (15:48)
[2018-03-09] MEDS ORDERED: ceFAZolin SODIUM 1 GM VIAL ONE (16:24)
[2018-03-09] MEDS ORDERED: ceFAZolin SODIUM 1 GM VIAL IVPB ONE (16:24)
[2018-03-09] MEDS ORDERED: BUPIVACAINE HCL/PF 0.5% (5MG/ML) 10 ML VIAL ONE (16:40)
[2018-03-09] MEDS ORDERED: LIDOCAINE HCL 1%, 10 MG/ML (20ML VIAL) ONE (16:40)
[2018-03-09] MEDS ORDERED: SUCCINYLCHOLINE CHLORIDE 200 MG/10 ML VIAL ONE (16:41)
[2018-03-09] MEDS ORDERED: morphine SULFATE 4 MG/ML VIAL IVPUSH PRN ×2 (16:55→18:28)
[2018-03-09] MEDS ORDERED: PHENYLEPHRINE HCL 10 MG/1 ML SINGLE DOSE VIAL ONE (16:57)
[2018-03-09] MEDS ORDERED: BUPIVACAINE HCL/PF 0.5% (5MG/ML) 10 ML VIAL IJ ONE (17:30)
[2018-03-09] MEDS ORDERED: LIDOCAINE HCL 1%, 10 MG/ML (20ML VIAL) NR ONE (17:30)
[2018-03-09] MEDS ORDERED: DEXAMETHASONE SOD PHOSPHATE 4 MG/1 ML VIAL ONE (17:34)
--- NOTE | 2018-03-09 17:46 | OP ---
Operative Note - Note: Operative Date: 03/09/18 ([facility]) Pre-Operative Diagnosis: right ankle fx Operation: right distal fibula ORIF, syndesmosis repair Implants: lurdes plate, arthrex tight rope Post-Operative Diagnosis: Same as Pre-op Surgeon: Diaz Hernandez Veneer Press Operator: Manav Hutton Anesthesiologist/PORCELAIN ENAMELER: Ricardo Damon Anesthesia: General, Local Estimated Blood Loss (mls): 75 Operative Report Dictated: Yes
--- NOTE | 2018-03-09 18:50 | OP ---
DATE OF OPERATION: 03/09/2018 PREOPERATIVE DIAGNOSIS: Right bimalleolar ankle fracture and syndesmotic disruption. POSTOPERATIVE DIAGNOSIS: Right bimalleolar ankle fracture and syndesmotic disruption. PROCEDURE: Bimalleolar open reduction internal fixation with a syndesmosis fixation. SURGEON: Nessa Hdz M.D. BUS ANALYST: Mary Adames INDICATION: This patient is an 87-year-old female with a preoperative diagnosis of right ankle bimalleolar ankle fracture and syndesmotic disruption. She is a marginal ambulator, she says she can walk about 2 blocks, she cannot walk 5 blocks. After understanding the potential risks, complications, alternatives, benefits to surgery versus nonsurgical treatment, the patient elected to undergo this procedure. DESCRIPTION OF PROCEDURE: Patient brought to operating room, peripheral IV placed, IV sedation given, spinal anesthesia was induced. A distal peripheral block was induced. We supplemented with 10 mL of 0.5% Marcaine around the surgical incision. The right lower extremity was prepped and draped in sterile fashion, elevated, exsanguinated with Esmarch bandage and tourniquet inflated to 300 mmHg. (The local injection was done after she was prepped and draped). A lateral incision was made with a number 15 scalpel blade. Subcutaneous hemostasis was achieved with a Bovie cautery, dissection done down to the lateral aspect of the fibula. There was a large fracture hematoma which was evacuated. It was at least 20 mL. The area was copiously irrigated and washed out. This exposed the fracture site. It was quite displaced and shortened. Using 2 alligator forceps and manipulation of the foot, I was able to reduce the fracture. It looked quite good. X-rays were taken and confirmed excellent position and reduction of the ankle mortise and the medial malleolus sat down into an excellent position. Next, a 3.5-mm lag screw of 24 mm in length was placed across the fracture site in standard fashion. This held the fracture in place. The alligator forceps were removed. A Micky titanium low profile distal fibular plate was placed onto the distal fibula and held in place with 2 K-wires. X-rays were taken documenting excellent position of the fracture fragment, the ankle mortise as well as the hardware. Next using standard technique, I placed 3 distal locking screws of 10, 12, and 12 mm in length and 4 proximal screws, 2 locking and 2 nonlocking, of 12 mm in length. We had excellent fixation. X-rays were taken, and it looked quite good. Next, we were able to hold the fibula and tibia together, and we put in an Arthrex Tightrope anchor holding together the syndesmosis. It was done fluoroscopy guided. It cinched down syndesmosis quite well and reduced the medial joint space widening. Final x-rays were taken. Extra sutures cut. Area was irrigated and washed out again. 2-0 Vicryl used to close the fascial layer over the plate. 2-0 Vicryl used to close the deep dermal layer. Final skin reapproximation was done with a row of promise. The area was then washed and dried and covered in Xeroform and 4x4 gauze, Webril, and a posterior Ortho-Glass splint was applied, wrapped with Edin bandages. The tourniquet was taken down after total tourniquet time of 1 hour. There were no complications during the case. The patient tolerated the procedure quite well and was brought to the regular recovery room in stable condition, as this was an inpatient. NESSA HDZ M.D. [id number]
[2018-03-09] MEDS: ATORVASTATIN CA 10 MG TABLET (FP) PO SCH (21:14)
[2018-03-09] MEDS: ESCITALOPRAM OXALATE 10 MG TABLET (FP) PO SCH (21:15)
[2018-03-10] MEDS: LEVOTHYROXINE NA 25 MCG TABLET (FP) PO SCH (06:35)
[2018-03-10 06:40] LABS: BASO % 0.3 % (0-2.0); EOS % 0.1 % (0-4.5); HEMATOCRIT 38.8 % (32.4-45.2); HEMOGLOBIN 12.9 GM/dL (10.7-15.3); LYMPH % 6.6 % (8-40); MCH 31.9 pg (25.7-33.7); MCHC 33.2 g/dl (32.0-36.0); MEAN PLT VOLUME 9.1 fl (7.5-11.1); MONO % 4.8 % (3.8-10.2); NEUT % 88.2 % (42.8-82.8); PLATELET COUNT 190 K/MM3 (134-434); RBC 4.04 M/mm3 (3.60-5.2); RDW 15.6 % (11.6-15.6); WHITE BLOOD COUNT 10.5 K/mm3 (4.0-10.0)
[2018-03-10 07:20] LABS: ANION GAP 6 (8-16); BLOOD UREA NITROGEN 19 mg/dL (7-18); CALCIUM 8.3 mg/dL (8.5-10.1); CHLORIDE 102 mmol/L (98-107); CO2 35 mmol/L (21-32); CREATININE 0.8 mg/dL (0.55-1.02); GLUCOSE,RANDOM 117 mg/dL (74-106); MAGNESIUM 2.3 mg/dL (1.8-2.4); PHOSPHOROUS 4.5 mg/dL (2.5-4.9); POTASSIUM 4.8 mmol/L (3.5-5.1); SODIUM 143 mmol/L (136-145)
--- NOTE | 2018-03-10 08:45 | PN ---
Progress Note, Physician Chief Complaint: s/p R. ankle ORIF No distress Alert and oriented - Current Medication List Current Medications: Active Medications Atorvastatin Calcium (Lipitor -) 10 mg PO [facility] Last Admin: 03/09/18 21:14 Dose: 10 mg Escitalopram Oxalate (Lexapro -) 5 mg PO [facility] Last Admin: 03/09/18 21:15 Dose: 5 mg Fentanyl (Sublimaze Injection -) 25 mcg IVPUSH [id number] PRN PRN Reason: PAIN-PACU ORDER X 4 DOSES ONLY Furosemide (Lasix -) 40 mg PO DAILY [facility] Levothyroxine Sodium (Synthroid -) 25 mcg PO DAILY@0700 [facility] Last Admin: 03/10/18 06:35 Dose: 25 mcg Losartan Potassium (Cozaar -) 100 mg PO DAILY [facility] Metoprolol Succinate (Toprol Xl -) 50 mg PO BID [facility] Last Admin: 03/09/18 21:15 Dose: 50 mg Morphine Sulfate (Morphine Sulfate) 2 mg IVPUSH Q4H PRN PRN Reason: PAIN LEVEL 7 - 10 - Objective Vital Signs: Vital Signs Temperature 98.3 F 03/10/18 06:00 Pulse Rate 78 03/10/18 06:00 Respiratory Rate 20 03/10/18 06:00 Blood Pressure 136/74 03/10/18 06:00 O2 Sat by Pulse Oximetry (%) 97 03/09/18 21:00 Constitutional: Yes: Calm Cardiovascular: Yes: Pulse Irregular Respiratory: Yes: CTA Bilaterally Gastrointestinal: Yes: Soft Edema: Yes Edema: LLE: 1+, RLE: 1+ Neurological: Yes: Alert ...Motor Strength: WNL Labs: CBC, BMP 03/10/18 05:00 03/10/18 06:00 - ....Imaging EKG: Image Reviewed (rate controlled AF) Assessment/Plan IMP: Right ankle fracture secondary to fall s/p ORIF POD 1 Permanent AF, not on AC due to falls Small ascending aortic aneurysm Chronic diastolic CHF Chronic PHTN REC: Surgery tolerated well. AF is controlled, currently euvolemic. DVT prophylaxis as per PMD and ortho.
[2018-03-10] MEDS: LOSARTAN POTASSIUM 50 MG TABLET (FP) PO SCH (09:27)
[2018-03-10] MEDS: FUROSEMIDE 40 MG TABLET (FP) PO SCH (09:28)
--- NOTE | 2018-03-10 11:18 | PN ---
Progress Note (short form) - Note Progress Note: Ortho Pt seen and examined s/p right ankle orif pod #1 Selected Entries 03/10/18 06:00 Temperature 98.3 F Pulse Rate 78 Respiratory 20 Rate Blood Pressure 136/74 Laboratory Tests 03/10/18 05:00 WBC 10.5 H D Hgb 12.9 Hct 38.8 Plt Count 190 D splint intact, nvi a/p OOB to chair NWB right LE elevation pain control dvt ppx d/c planning
--- NOTE | 2018-03-10 12:22 | PN ---
Progress Note, Physician Chief Complaint: Ms Benítez says she is doing well today. No cp, sob, n/v. Pain well controlled. - Current Medication List Current Medications: Active Medications Atorvastatin Calcium (Lipitor -) 10 mg PO HS [facility] Last Admin: 03/09/18 21:14 Dose: 10 mg Escitalopram Oxalate (Lexapro -) 5 mg PO HS [facility] Last Admin: 03/09/18 21:15 Dose: 5 mg Fentanyl (Sublimaze Injection -) 25 mcg IVPUSH [id number] PRN PRN Reason: PAIN-PACU ORDER X 4 DOSES ONLY Furosemide (Lasix -) 40 mg PO DAILY [facility] Last Admin: 03/10/18 09:28 Dose: 40 mg Levothyroxine Sodium (Synthroid -) 25 mcg PO DAILY@0700 [facility] Last Admin: 03/10/18 06:35 Dose: 25 mcg Losartan Potassium (Cozaar -) 100 mg PO DAILY [facility] Last Admin: 03/10/18 09:27 Dose: 100 mg Metoprolol Succinate (Toprol Xl -) 50 mg PO BID [facility] Last Admin: 03/10/18 09:27 Dose: 50 mg Morphine Sulfate (Morphine Sulfate) 2 mg IVPUSH Q4H PRN PRN Reason: PAIN LEVEL 7 - 10 - Objective Vital Signs: Vital Signs Temperature 36.7 C 03/10/18 10:00 Pulse Rate 82 03/10/18 10:00 Respiratory Rate 18 03/10/18 10:00 Blood Pressure 126/68 03/10/18 10:00 O2 Sat by Pulse Oximetry (%) 96 03/10/18 09:00 Constitutional: Yes: No Distress, Calm, Obese Cardiovascular: Yes: Pulse Irregular. No: Tachycardia, Gallop, Murmur, Rub Respiratory: Yes: Regular, CTA Bilaterally. No: Rales, Rhonchi, Wheezes Gastrointestinal: Yes: Normal Bowel Sounds, Soft. No: Distention, Tenderness Extremities: Yes: WNL Edema: No Labs: CBC, BMP 03/10/18 05:00 03/10/18 06:00 Problem List - Problems (1) Fracture dislocation of ankle Code(s): S82.899A - OTH FRACTURE OF UNSP LOWER LEG, INIT FOR CLOS FX Qualifiers: Encounter type: initial encounter Fracture type: closed Laterality: right Qualified Code(s): S82.891A - Other fracture of right lower leg, initial encounter for closed fracture (2) CAD (coronary artery disease) Code(s): I25.10 - ATHSCL HEART DISEASE OF [place] CORONARY ARTERY W/O ANG PCTRS Qualifiers: Coronary Disease-Associated Artery/Lesion type: [place] artery Associated angina: without angina (3) CHF (congestive heart failure) Code(s): I50.9 - HEART FAILURE, UNSPECIFIED Qualifiers: Heart failure type: diastolic Heart failure chronicity: chronic Qualified Code(s): I50.32 - Chronic diastolic (congestive) heart failure (4) Hyperlipidemia Code(s): E78.5 - HYPERLIPIDEMIA, UNSPECIFIED (5) Hypertension Code(s): I10 - ESSENTIAL (PRIMARY) HYPERTENSION (6) Hypothyroid Code(s): E03.9 - HYPOTHYROIDISM, UNSPECIFIED (7) Pulmonary hypertension Code(s): I27.20 - PULMONARY HYPERTENSION, UNSPECIFIED Assessment/Plan (1) Fracture dislocation of ankle Assessment/Plan: -secondary to fall -s/p surgical intervention -PT consult -plan for discharge to SNF -start lovenox for DVT PPx Code(s): S82.899A - OTH FRACTURE OF UNSP LOWER LEG, INIT FOR CLOS FX Qualifiers: Encounter type: initial encounter Fracture type: closed Laterality: right Qualified Code(s): S82.891A - Other fracture of right lower leg, initial encounter for closed fracture (2) CAD (coronary artery disease) Assessment/Plan: -quiescent -seen by cardiology -continue current regimen Code(s): I25.10 - ATHSCL HEART DISEASE OF [place] CORONARY ARTERY W/O ANG PCTRS Qualifiers: Coronary Disease-Associated Artery/Lesion type: [place] artery Associated angina: without angina (3) CHF (congestive heart failure) Assessment/Plan: -continue lasix, toprol xl, and losartan Code(s): I50.9 - HEART FAILURE, UNSPECIFIED Qualifiers: Heart failure type: diastolic Heart failure chronicity: chronic Qualified Code(s): I50.32 - Chronic diastolic (congestive) heart failure (4) Hyperlipidemia Assessment/Plan: -continue statin Code(s): E78.5 - HYPERLIPIDEMIA, UNSPECIFIED (5) Hypertension Assessment/Plan: -very well controlled Code(s): I10 - ESSENTIAL (PRIMARY) HYPERTENSION (6) Hypothyroid Assessment/Plan: -continue levothyroxine Code(s): E03.9 - HYPOTHYROIDISM, UNSPECIFIED (7) Pulmonary hypertension Code(s): I27.20 - PULMONARY HYPERTENSION, UNSPECIFIED
--- NOTE | 2018-03-10 13:59 | PN ---
Progress Note (short form) - Note Progress Note: Anesthesia post op Pt seen and examined S:alert and awake O: Vital Signs Temperature 98.1 F 03/10/18 10:00 Pulse Rate 82 03/10/18 10:00 Respiratory Rate 18 03/10/18 10:00 Blood Pressure 126/68 03/10/18 10:00 O2 Sat by Pulse Oximetry (%) 96 03/10/18 09:00 CBC, BMP 03/10/18 05:00 03/10/18 06:00 A/P: s/p Right ankle ORIF Doing well post op Continue current care Edmar Tanner MD
[2018-03-10] MEDS: ENOXAPARIN NA (PORCINE) 40 MG/0.4 ML DISP.SYRIN SQ SCH (14:35)
[2018-03-10] MEDS: ATORVASTATIN CA 10 MG TABLET (FP) PO SCH (22:02)
[2018-03-10] MEDS: ESCITALOPRAM OXALATE 10 MG TABLET (FP) PO SCH (22:02)
[2018-03-11 04:19] VITALS: PULSE 85
[2018-03-11 05:46] VITALS: BP 138/85; TEMP 98.5
[2018-03-11] MEDS: LEVOTHYROXINE NA 25 MCG TABLET (FP) PO SCH (06:17)
[2018-03-11 06:31] LABS: BASO % 0.5 % (0-2.0); EOS % 2.5 % (0-4.5); HEMATOCRIT 36.7 % (32.4-45.2); HEMOGLOBIN 12.1 GM/dL (10.7-15.3); LYMPH % 16.5 % (8-40); MCH 32.1 pg (25.7-33.7); MEAN CELL VOLUME 97.3 fl (80-96); MEAN PLT VOLUME 8.3 fl (7.5-11.1); MONO % 9.6 % (3.8-10.2); NEUT % 70.9 % (42.8-82.8); PLATELET COUNT 175 K/MM3 (134-434); RBC 3.77 M/mm3 (3.60-5.2); RDW 15.8 % (11.6-15.6); WHITE BLOOD COUNT 10.9 K/mm3 (4.0-10.0)
[2018-03-11 06:59] LABS: ANION GAP 4 (8-16); BLOOD UREA NITROGEN 31 mg/dL (7-18); CHLORIDE 102 mmol/L (98-107); CO2 35 mmol/L (21-32); CREATININE 1.1 mg/dL (0.55-1.02); GLUCOSE,RANDOM 101 mg/dL (74-106); MAGNESIUM 2.2 mg/dL (1.8-2.4); PHOSPHOROUS 3.4 mg/dL (2.5-4.9); POTASSIUM 4.4 mmol/L (3.5-5.1); SODIUM 141 mmol/L (136-145)
--- NOTE | 2018-03-11 09:31 | PN ---
Progress Note (short form) - Note Progress Note: Pt seen and examined. She is on POD #2 s/p right ankle ORIF. She is doing well. She has less pain. She is progressing slowly with P.T. AVSS RLE looks good, dressing CDI, grossly NVI, + motion at toes. Imp Pt doing well. Plan She can be DC'd/transfered from an orthopedic POV P.T., walker, assistance, TTWB RLE F/U in office in 2 weeks
[2018-03-11] MEDS: LOSARTAN POTASSIUM 50 MG TABLET (FP) PO SCH (09:43)
[2018-03-11] MEDS: ENOXAPARIN NA (PORCINE) 40 MG/0.4 ML DISP.SYRIN SQ SCH (09:43)
[2018-03-11] MEDS: FUROSEMIDE 40 MG TABLET (FP) PO SCH (09:44)
--- NOTE | 2018-03-11 10:41 | DS ---
Physical Examination Vital Signs: Vital Signs Temperature 36.9 C 03/11/18 05:45 Pulse Rate 85 03/11/18 05:45 Respiratory Rate 20 03/11/18 09:00 Blood Pressure 138/85 03/11/18 05:45 O2 Sat by Pulse Oximetry (%) 96 03/11/18 09:00 Constitutional: Yes: Well Nourished, No Distress, Calm Cardiovascular: Yes: Regular Rate and Rhythm. No: Gallop, Murmur, Rub Respiratory: Yes: Regular, CTA Bilaterally. No: Rales, Rhonchi, Wheezes Gastrointestinal: Yes: Normal Bowel Sounds, Soft. No: Distention, Tenderness Extremities: Yes: WNL Edema: No Labs: CBC, BMP 03/11/18 06:10 03/11/18 06:10 Discharge Summary Reason For Visit: FOOT INJURY Current Active Problems Fracture dislocation of ankle (Acute) Hospital Course: (1) Fracture dislocation of ankle Code(s): S82.899A - OTH FRACTURE OF UNSP LOWER LEG, INIT FOR CLOS FX Qualifiers: Encounter type: initial encounter Fracture type: closed Laterality: right Qualified Code(s): S82.891A - Other fracture of right lower leg, initial encounter for closed fracture (2) CAD (coronary artery disease) Code(s): I25.10 - ATHSCL HEART DISEASE OF [place] CORONARY ARTERY W/O ANG PCTRS Qualifiers: Coronary Disease-Associated Artery/Lesion type: [place] artery Associated angina: without angina (3) CHF (congestive heart failure) Code(s): I50.9 - HEART FAILURE, UNSPECIFIED Qualifiers: Heart failure type: diastolic Heart failure chronicity: chronic Qualified Code(s): I50.32 - Chronic diastolic (congestive) heart failure (4) Hyperlipidemia Code(s): E78.5 - HYPERLIPIDEMIA, UNSPECIFIED (5) Hypertension Code(s): I10 - ESSENTIAL (PRIMARY) HYPERTENSION (6) Hypothyroid Code(s): E03.9 - HYPOTHYROIDISM, UNSPECIFIED (7) Pulmonary hypertension Code(s): I27.20 - PULMONARY HYPERTENSION, UNSPECIFIED Ms Benítez is a very pleasant 87 year old female who comes in with ankle fracture. She was cleared by cardiology and underwent ORIF. She tolerated the surgery well. She is currently stable for transfer to SNF. 32 minutes spent in preparation of this discharge Condition: Good - Instructions Diet, Activity, Other Instructions: Please return to the emergency department with any new or worsening symptoms or concerns. Please follow up with your primary care physician within 72 hours. Referrals: Pranav Wright MD [Staff Physician] - Diaz Hernandez MD [Staff Physician] - Konrad Cedillo MD [Staff Physician] - Disposition: SNF FACILITY - Home Medications Comprehensive Discharge Medication List: Ambulatory Orders Aspirin [Baby Aspirin] 162 mg PO DAILY 10/18/11 Losartan Potassium [Cozaar] 100 mg PO DAILY 08/12/12 Metoprolol Succinate [Toprol XL -] 50 mg PO BID 08/12/12 Furosemide [Lasix -] 40 mg PO DAILY 07/29/14 Levothyroxine [Synthroid -] 25 mcg PO DAILY 07/29/14 Pravastatin Sodium [Pravachol -] 40 mg PO HS 12/17/16 Escitalopram Oxalate [Lexapro -] 5 mg PO HS 10/20/17 Enoxaparin [Lovenox -] 40 mg SQ DAILY disp.syrin 03/11/18 Oxycodone HCl 5 mg PO Q6H PRN #1 tablet MDD 20mg 03/11/18
== END 2018-03-11 14:05 | DRG 493 ==
LOC: JER 15:37 → JERBED 20:04 → OBSVTOIN 03-07 00:32 → J4W 03-07 01:26
PROVIDERS: ADMIT Internal Medicine; ATTEND Specialist
PROC: 0SCF0ZZ Extirpation of Matter from Right Ankle Joint, Open Approach (ICD-10-PCS; 2018-03-09)
PROC: 0QSJ04Z Reposition Right Fibula with Internal Fixation Device, Open Approach (ICD-10-PCS; principal; 2018-03-09 14:00)
DX: S82.841A Displaced bimalleolar fracture of right lower leg, initial encounter for closed fracture (principal); I50.32 Chronic diastolic (congestive) heart failure; Z68.42 Body mass index [BMI] 45.0-49.9, adult; W19.XXXA Unspecified fall, initial encounter; Y93.9 Activity, unspecified; Y92.89 Other specified places as the place of occurrence of the external cause; Y99.9 Unspecified external cause status; S82.891A Other fracture of right lower leg, initial encounter for closed fracture; I11.0 Hypertensive heart disease with heart failure; I48.2 Chronic atrial fibrillation; S93.401A Sprain of unspecified ligament of right ankle, initial encounter; S90.01XA Contusion of right ankle, initial encounter; E66.9 Obesity, unspecified; E03.9 Hypothyroidism, unspecified; I25.10 Atherosclerotic heart disease of native coronary artery without angina pectoris; I27.20 Pulmonary hypertension, unspecified; E78.5 Hyperlipidemia, unspecified; I71.2 Thoracic aortic aneurysm, without rupture
CPT/HCPCS: 36415; 71045-TC-FY; 73562-TC-RT-FY; 73610-TC-RT-FY; 73630-TC-RT-FY; 76000-TC-FY; 80048; 80053; 81003; 81015; 82550; 82553; 83735; 84100; 84484; 85025; 93005; 93010; 93306-TC; 94760; 97161-GP; 99283-25; G0378; J1644

== ENCOUNTER 2019-06-16 17:55 | Inpatient (IN) | payer OTHER ==
--- NOTE | 2019-06-16 18:01 | PDOC ---
History of Present Illness - General Chief Complaint: Weakness Stated Complaint: WEAKNESS Time Seen by Provider: 06/16/19 18:00 History Source: Patient Exam Limitations: No Limitations - History of Present Illness Initial Comments: HPI 88 year old female with PMH HTN, HLD, diastolic CHF (last EF 55-60% 03/08/19), CAD, atrial fibrillation (on ASA 162 mg PO daily), COPD on home O2 (2L), thoracic aortic aneurysm, HLD, pulmonary HTN, hypothyroidism, aortic stenosis BIBA to ED from [facility] for generalized weakness x3 days. Pt is currently being treated for left sided pneumonia at [facility], which recently put her back into atrial fibrillation, Dr. Cedillo was managing from CT, but daughter insisted pt come to the ED for medical evaluation. Pt complained of bilateral lower extremity numbness, decreased exercise tolerance (ambulates with walker), decreased eating tolerance, shortness of breath at rest, increased lower extremity swelling. Pt denied chest pain, palpitations, lightheadedness, syncope, diaphoresis, nausea, vomiting, increased cough, increased sputum. Daughter at bedside stated pt will desaturate rapidly if taken off the home O2. PCP: Kyle Cardio: Mamadou GOMEZ General: admitted to generalized weakness. denied fever, chills. HEENT: denied sore throat, rhinorrhea, ear pain. Cardiovascular: admitted to lower extremity swelling. denied chest pain, palpitations, syncope, diaphoresis. Respiratory: admitted to shortness of breath, ELLIS. denied cough, sputum production, hemoptysis. Gastrointestinal: denied abdominal pain, nausea, vomiting, diarrhea, constipation, blood in stool. Genitourinary: denied dysuria, increased urinary frequency, hematuria, urinary incontinence, flank pain. Back: denied back pain. Musculoskeletal: denied joint pain, muscle pain, joint swelling. Neurological: denied headache, dizziness, numbness, tingling, weakness. Integumentary: denied rash, laceration, abrasion. Hematologic/Lymphatic: denied bruising or bleeding. PE Constitutional: Well-nourished, Well-developed, appearing stated age. obese. HEENT: head is normocephalic, atraumatic. EOMI. PERRLA. Neck: supple. Full ROM. Cardiovascular: regular heart rhythm. no murmurs. no pericardial friction rub. Respiratory: bibasilar crackles. dullness to left base. no wheezing. no stridor. speaking full sentences. no cyanosis to fingers. no retractions. Gastrointestinal: soft, nontender. normal bowel sounds. no rebound, guarding, masses. Extremities: peripheral pulses intact. 4+ symmetrical pitting edema to bilateral LE. Neurological: CN 2-12 grossly intact. moves all four extremities. Psych: awake, alert, oriented x3. follows commands. answers questions appropriately. Past History - Past Medical History Allergies/Adverse Reactions: Allergies Allergy/AdvReac Type Severity Reaction Status Date / Time No Known Drug Allergies Allergy Verified 02/11/18 13:34 Home Medications: Ambulatory Orders Aspirin [Baby Aspirin] 162 mg PO DAILY 10/18/11 Metoprolol Succinate [Toprol XL -] 50 mg PO DAILY 08/12/12 Furosemide [Lasix -] 40 mg PO DAILY 07/29/14 Levothyroxine [Synthroid -] 25 mcg PO DAILY 07/29/14 Pravastatin Sodium [Pravachol -] 40 mg PO HS 12/17/16 Cholecalciferol (Vitamin D3) [Vitamin D3] 50,000 unit PO Q30D 06/16/19 Levofloxacin [Levaquin] 500 mg PO DAILY 06/16/19 Lisinopril 20 mg PO DAILY 06/16/19 Loratadine 10 mg PO HS 06/16/19 Melatonin [Melatin] 3 mg PO HS 06/16/19 Polyethylene Glycol 3350 17 gm PO HS 06/16/19 Polyvinyl Alcohol [Artificial Tears] 1 drop OU BID 06/16/19 Cancer: Yes (LT BREAST) CHF: Yes GI Disorders: Yes (DIVERTICULITIS; H/O OF MULT TUBULAR ADENOMAS) - Surgical History Abdominal Surgery: No Appendectomy: Yes Cardiac Surgery: No Cholecystectomy: No Lung Surgery: No Neurologic Surgery: No Orthopedic Surgery: No - Immunization History Immunization Up to Date: Yes - Suicide/Smoking/Psychosocial Hx Smoking Status: No Smoking History: Former smoker Have you smoked in the past 12 months: No Number of Cigarettes Smoked Daily: 0 If you are a former smoker, when did you quit?: stopped 11years ago 'Breaking Loose' booklet given: 06/07/12 Hx Alcohol Use: No Drug/Substance Use Hx: No Substance Use Type: None Hx Substance Use Treatment: No ED Treatment Course - LABORATORY CBC & Chemistry Diagram: 06/16/19 18:30 06/16/19 18:30 Medical Decision Making - Medical Decision Making 88 year old female with above PMH BIBA to ED for shortness of breath, generalized weakness x3 days. Pt has been diagnosed with left sided pneumonia, currently being treated with Levaquin 500 mg PO daily. Pt was given Lasix 20 mg IM today per CT records. Initial Vital Signs Pulse Resp BP Pulse Ox 86 18 132/70 92 L 06/16/19 18:00 06/16/19 18:00 06/16/19 18:00 06/16/19 18:00 No tachycardia. No tachypnea. Mild hypertension. Hypoxia on 2L O2. EKG performed at 1824: rate 79, irregularly irregular rhythm, normal axis, no acute ST changes. Labs ordered: CBC, CMP, mag, TSH, troponin, BNP, blood cultures, UA/UC, coags Imaging ordered: CXR Medications ordered: none 06/16/19 18:57 CBC WBC 7.4 K/mm3 (4.0-10.0) 06/16/19 18:30 RBC 4.41 M/mm3 (3.60-5.2) 06/16/19 18:30 Hgb 14.1 GM/dL (10.7-15.3) 06/16/19 18:30 Hct 42.3 % (32.4-45.2) D 06/16/19 18:30 MCV 96.0 fl (80-96) 06/16/19 18:30 MCH 31.9 pg (25.7-33.7) 06/16/19 18:30 MCHC 33.3 g/dl (32.0-36.0) 06/16/19 18:30 RDW 14.3 % (11.6-15.6) 06/16/19 18:30 Plt Count 154 K/MM3 (134-434) 06/16/19 18:30 MPV 7.9 fl (7.5-11.1) 06/16/19 18:30 Absolute Neuts (auto) 5.7 K/mm3 (1.5-8.0) 06/16/19 18:30 Neutrophils % 76.8 % (42.8-82.8) 06/16/19 18:30 Lymphocytes % 11.5 % (8-40) D 06/16/19 18:30 Monocytes % 10.7 % (3.8-10.2) H 06/16/19 18:30 Eosinophils % 0.4 % (0-4.5) D 06/16/19 18:30 Basophils % 0.6 % (0-2.0) 06/16/19 18:30 Nucleated RBC % 0 % (0-0) 06/16/19 18:30 No leukocytosis. No anemia. No left shift. 06/16/19 19:10 Urine Test Results Urine Color Yellow 06/16/19 18:40 Urine Appearance Error 06/16/19 18:40 Urine pH 5.5 (5.0-8.0) 06/16/19 18:40 Ur Specific [place] 1.007 (1.010-1.035) L 06/16/19 18:40 Urine Protein Negative (NEGATIVE) 06/16/19 18:40 Urine Glucose (UA) Negative (NEGATIVE) 06/16/19 18:40 Urine Ketones Negative (NEGATIVE) 06/16/19 18:40 Urine Blood Negative (NEGATIVE) 06/16/19 18:40 Urine Nitrite Negative (NEGATIVE) 06/16/19 18:40 Urine Bilirubin Negative (NEGATIVE) 06/16/19 18:40 Ur Leukocyte Esterase Negative (NEGATIVE) 06/16/19 18:40 Negative for UTI. Negative for ketones. Negative for hematuria. 06/16/19 19:32 CMP Sodium 132 mmol/L (136-145) L 06/16/19 18:30 Potassium 4.2 mmol/L (3.5-5.1) 06/16/19 18:30 Chloride 86 mmol/L (98-107) L 06/16/19 18:30 Carbon Dioxide 40 mmol/L (21-32) H 06/16/19 18:30 Anion Gap 6 MMOL/L (8-16) L 06/16/19 18:30 BUN 15.7 mg/dL (7-18) 06/16/19 18:30 Creatinine 0.6 mg/dL (0.55-1.3) 06/16/19 18:30 Est GFR (CKD-EPI)AfAm 93.66 06/16/19 18:30 Est GFR (CKD-EPI)NonAf 80.81 06/16/19 18:30 Random Glucose 92 mg/dL (74-106) 06/16/19 18:30 Lactic Acid 1.6 mmol/L (0.4-2.0) 06/16/19 18:40 Calcium 8.9 mg/dL (8.5-10.1) 06/16/19 18:30 Phosphorus 2.4 mg/dL (2.5-4.9) L 06/16/19 18:30 Magnesium 1.7 mg/dL (1.8-2.4) L 06/16/19 18:30 Total Bilirubin 0.7 mg/dL (0.2-1) 06/16/19 18:30 AST 15 U/L (15-37) 06/16/19 18:30 ALT 12 U/L (13-61) L 06/16/19 18:30 Alkaline Phosphatase 95 U/L (45-117) 06/16/19 18:30 Troponin I < 0.02 ng/ml (0.00-0.05) 06/16/19 18:30 B-Natriuretic Peptide 3104.8 pg/ml (5-450) H 06/16/19 18:30 Total Protein 6.4 g/dl (6.4-8.2) 06/16/19 18:30 Albumin 3.5 g/dl (3.4-5.0) 06/16/19 18:30 TSH 3.00 uIU/ml (0.358-3.74) 06/16/19 18:30 Hyponatremia, Hypochloremia. No MCKENZIE. No lactic acidosis. No transamintiis. troponin wnl BNP elevation TSH wnl Pt is clinically fluid overloaded with an elevation in BNP, suggesting CHF exacerbation. Medications ordered: Lasix 20 mg IV once Will admit for CHF exacerbation, SOB/ELLIS, atrial fibrillation. *DC/Admit/Observation/Transfer Diagnosis at time of Disposition: CHF exacerbation, Hyponatremia, SOB (shortness of breath), Hypoxia - Discharge Dispostion Condition at time of disposition: Stable Decision to Admit order: Yes - Referrals - Patient Instructions - Post Discharge Activity
[2019-06-16 18:44] LABS: BASO % 0.6 % (0-2.0); EOS % 0.4 % (0-4.5); HEMATOCRIT 42.3 % (32.4-45.2); HEMOGLOBIN 14.1 GM/dL (10.7-15.3); LYMPH % 11.5 % (8-40); MCH 31.9 pg (25.7-33.7); MCHC 33.3 g/dl (32.0-36.0); MEAN PLT VOLUME 7.9 fl (7.5-11.1); MONO % 10.7 % (3.8-10.2); NEUT % 76.8 % (42.8-82.8); PLATELET COUNT 154 K/MM3 (134-434); RBC 4.41 M/mm3 (3.60-5.2); RDW 14.3 % (11.6-15.6); WHITE BLOOD COUNT 7.4 K/mm3 (4.0-10.0)
[2019-06-16 19:02] LABS: PH,URINE 5.5 (5.0-8.0); URINE APPEARANCE Error; URINE BILIRUBIN NEGATIVE (NEGATIVE); URINE COLOR YELLOW; URINE GLUCOSE (UA) NEGATIVE (NEGATIVE); URINE KETONE NEGATIVE (NEGATIVE); URINE LEUK ESTERASE NEGATIVE (NEGATIVE); URINE NITRITE NEGATIVE (NEGATIVE); URINE PROTEIN NEGATIVE (NEGATIVE); URINE UROBILINOGEN 0.2 mg/dL (0.2-1.0)
[2019-06-16 19:06] LABS: ACTIVATED PTT 30.5 SECONDS (25.2-36.5)
[2019-06-16 19:24] LABS: ALBUMIN 3.5 g/dl (3.4-5.0); ALK PHOS 95 U/L (45-117); ANION GAP 6 MMOL/L (8-16); BILIRUBIN,TOTAL 0.7 mg/dL (0.2-1); BLOOD UREA NITROGEN 15.7 mg/dL (7-18); CALCIUM 8.9 mg/dL (8.5-10.1); CHLORIDE 86 mmol/L (98-107); CO2 40 mmol/L (21-32); CREATININE 0.6 mg/dL (0.55-1.3); GLUCOSE,RANDOM 92 mg/dL (74-106); MAGNESIUM 1.7 mg/dL (1.8-2.4); N-TERMINAL BNP 3104.8 pg/ml (5-450); PHOSPHOROUS 2.4 mg/dL (2.5-4.9); POTASSIUM 4.2 mmol/L (3.5-5.1); SGOT/AST 15 U/L (15-37); SGPT/ALT 12 U/L (13-61); SODIUM 132 mmol/L (136-145); TOT PROT 6.4 g/dl (6.4-8.2)
[2019-06-16] MEDS ORDERED: FUROSEMIDE 40 MG/4 ML INJECTABLE VIAL IVPUSH ONE ×2 (19:35→19:41)
[2019-06-16] MEDS ORDERED: FUROSEMIDE 40 MG/4 ML INJECTABLE VIAL ONE (19:40)
--- NOTE | 2019-06-16 19:59 | PDOC ---
Documentation entered by Cherise Leal SCRIBE, acting as scribe for Cookie Grady DO. Cookie Grady DO: This documentation has been prepared by the Elvis bates Brenda, SCRIBE, under my direction and personally reviewed by me in its entirety. I confirm that the documentation accurately reflects all work, treatment, procedures, and medical decision making performed by me. Attending Attestation - Resident Resident Name: Stephanie King - ED Attending Attestation I have performed the following: I have examined & evaluated the patient, The case was reviewed & discussed with the resident, I agree w/resident's findings & plan, Exceptions are as noted - HPI HPI: 06/16/19 20:26 88yo female from [place] with increasing sob and LE swelling. Dx with pna last week and started on levaquin. No fevers. No increasing cough. No abd pain. No n/v/d. edema in legs. Received lasix IM at the facility prior to transfer. DNR/I molst in [place] paperwork. No cp. - Physicial Exam PE: 06/16/19 19:49 GENERAL: Awake, alert, and fully oriented, in no acute distress HEAD: No signs of trauma EYES: PERRLA, EOMI, sclera anicteric, conjunctiva clear NECK: Normal ROM, supple, no lymphadenopathy, JVD, or masses LUNGS: (+) rales bilaterally. (+) Crackles at both bases. Sat 88% on room air, and 95% on 4L. No wheezes. HEART: (+) Irregularly, irregular. Non tachycardic. Normal S1 and S2, no murmurs , rubs or gallops ABDOMEN: Soft, nontender, normoactive bowel sounds. No guarding, no rebound. No masses EXTREMITIES: Normal range of motion, no edema. No clubbing or cyanosis. No cords, erythema, or tenderness NEUROLOGICAL: Cranial nerves II through XII grossly intact. Normal speech. SKIN: Warm, Dry, normal turgor, no rashes or lesions noted. - Medical Decision Making 06/16/19 19:55 I, Dr. Cookie Grady DO, attest that this document has been prepared under my direction and personally reviewed by me in its entirety. I further attest, that it accurately reflects all work, treatment, procedures and medical decision -making performed by me. a/p: 88yo female with increasing leg swelling and increasing sob -started on abx for pna last week -now with o2 requirement, 88%ra, 95% on 4L nc -no cp -no abd pain, no fevers -hx of chf - did receive extra 20mg IM lasix port captain in the ED -pt with rales, crackes in lungs, LE swelling -dry mm -concern for chf exacerbation -will send labs, ekg, cxr -will dose extra lasix iv -pt will need hospitalization given worsening sob, new o2 requirement 06/16/19 19:57 bnp 3000 trop neg chf on cxr lasix ordered resident discussed the case with radha who accepts the patient to service Heart Score/ECG Review - ECG Intrepretation Comment:: 06/16/19 19:58 afib at 79, nl axis, nl interval, no acute st/t wave findings
--- NOTE | 2019-06-16 20:15 | PN ---
Teaching Attending Note Name of Resident: Poncho Wu ATTENDING PHYSICIAN STATEMENT I saw and evaluated the patient. I reviewed the resident's note and discussed the case with the resident. I agree with the resident's findings and plan as documented. SUBJECTIVE: Patient is an 88 year old woman with PMH of HTN, HLD, Diastolic CHF (last EF 55- 60% 03/08/19), CAD, Atrial fibrillation (on ASA 162 mg PO daily), COPD on home O2 (2L), Thoracic aortic aneurysm, HLD, Right breast cancer and mastectomy, Pulmonary HTN, Hypothyroidism and Aortic stenosis brought from [facility] for generalized weakness for 3 days. Patient is currently being treated for [place] sided pneumonia [place] the [place]. The infection reportedly put her back into atrial fibrillation, Dr. Cedillo was managing her at the [facility], but daughter insisted patient come to the ER for evaluation. Patient complained of bilateral lower extremity numbness, decreased exercise tolerance (ambulates with walker), decreased oral intake, shortness of breath at rest, increased lower extremity swelling. Has urinary incontinence - wears diapers. She denied chest pain, palpitations, lightheadedness, syncope, diaphoresis, nausea, vomiting, increased cough, increased sputum. Daughter at bedside stated patient will desaturate rapidly if taken off the home O2. FH of DM and cancer. OBJECTIVE: Alert Vital Signs Period Temp Pulse Resp BP Sys/Meng Pulse Ox Last 24 Hr 97.7 F 86-92 18-25 125-132/62-70 92-97 HEENT: No Jaundice, eye redness or discharge, PERRLA, EOMI. Normocephalic, atraumatic. External ears are normal and hearing is grossly intact. No nasal discharge. Neck: Supple, nontender. No palpable adenopathy or thyromegaly. No JVD Chest: Good effort. Diminished breath sounds; bibasilar crackles; Clear to percussion. Heart: Regular. No S3, rub or murmur Abdomen: Distended, soft, nontender and no HSM. No rebound or guarding. Normal bowel sounds. Ext: Peripheral pulses intact. Leg edema. Skin: Warm and dry. No petechiae, rash or ecchymosis. Neuro: Alert. Oriented x3. CN 2-12 grossly intact. Sensation grossly intact in all four extremities and DTR are symmetric. Psych: Appropriate mood and affect. Good insight. Home Medications Medication Instructions Recorded Aspirin [Baby Aspirin] 162 mg PO DAILY 10/18/11 Metoprolol Succinate [Toprol XL -] 50 mg PO DAILY 08/12/12 Furosemide [Lasix -] 40 mg PO DAILY 07/29/14 Levothyroxine [Synthroid -] 25 mcg PO DAILY 07/29/14 Pravastatin Sodium [Pravachol -] 40 mg PO HS 12/17/16 Cholecalciferol (Vitamin D3) 50,000 unit PO Q30D 06/16/19 [Vitamin D3] Levofloxacin [Levaquin] 500 mg PO DAILY 06/16/19 Lisinopril 20 mg PO DAILY 06/16/19 Loratadine 10 mg PO HS 06/16/19 Melatonin [Melatin] 3 mg PO HS 06/16/19 Polyethylene Glycol 3350 17 gm PO HS 06/16/19 Polyvinyl Alcohol [Artificial 1 drop OU BID 06/16/19 Tears] Abnormal Lab Results 06/16/19 06/16/19 06/16/19 18:30 18:30 18:30 Monocytes % 10.7 H PT with INR 14.30 H INR 1.21 H Sodium 132 L Chloride 86 L Carbon Dioxide 40 H Anion Gap 6 L Phosphorus 2.4 L Magnesium 1.7 L ALT 12 L B-Natriuretic Peptide 3104.8 H Ur Specific [place] 06/16/19 18:40 Monocytes % PT with INR INR Sodium Chloride Carbon Dioxide Anion Gap Phosphorus Magnesium ALT B-Natriuretic Peptide Ur Specific [place] 1.007 L ASSESSMENT AND PLAN: 1. CHF Exacerbation - Likely precipitated in part by her recent pneumonia. Also significant weight gain over the past 1 year from 108 kg (on 03/11/18) to 136 kg today may signal suboptimal outpatient CHF regimen/diuresis and/or dietary indiscretion. CXR is poor quality, but shows cardiomegaly, hilar prominence, pulmonary congestion and bilateral pleural effusion. Will get chest CT to confirm pneumonia and possibly treat as HCAP; and also to quantify pleural effusion. Will treat with escalating doses of IV lasix to achieve adequate diuresis, restrict dietary salt intake, get daily standing weigh and give Neutraphos and IV MgSO4. Consult her senior analytical chemist. 2. Morbid Obesity Counseled on the risks associated with obesity. Will provide patient all the necessary assistance, counseling and positive reinforcement to facilitate weight loss. Consult map and chart mounter. 3. Hypertension - Restart suitable outpatient antihypertensive drugs when clinically appropriate. Revise regimen to ensure [id number] excellent BP control and anger control counselor patient on the injurious effects of uncontrolled hypertension. Nonpharmacologic measures to control hypertension like weight loss , salt restriction and exercise discussed. Importance of adherence to treatment regimen and attainment of normotension emphasized. 4. DVT prophylaxis - Lovenox 40 mg SQ q 24 hours. 5. Advance directives - DNR/DNI
[2019-06-16] MEDS ORDERED: NAPH,MB-DB/K PH,MBDB POWDER PACKET PO ONE (21:58)
[2019-06-16] MEDS ORDERED: MAGNESIUM SULF 50% (8.12 MEQ/2 ML-1 GM VIAL) IVPB ONE (21:59)
[2019-06-16] MEDS ORDERED: PATIENT'S OWN MEDICATION (NON-FORMULARY) (Cholecalciferol (Vitamin D3) [Vitamin D3] 50,000 PO SCH (22:00)
--- NOTE | 2019-06-16 22:24 | HP ---
CHIEF COMPLAINT: Generalized weakness and SOB for 4 days PCP: Pranav Hickman HISTORY OF PRESENT ILLNESS: Patient's daugter present at [facility], assisted in translating. This is an 88 year old female with PMH significant for HTN, HLD, Hypothyroidism , COPD, CHF, Thoracic Aortic Aneurysm, and recently diagnosed AFib. She presented from [facility] with complaints of generalized weakness and SOB for the past 4 days. She first noticed a change in her health on Thursday (06/11), when she felt some nasal congestion, change in her voice, sweats, and mild dysuria. The next day she developed SOB and generalized weakness. She normally ambulates with a walker and is able to walk approximately 50 steps without feeling short of breath. She uses 2 pillows to sleep at night, but endorses paroxysmal nocturnal dyspnea She does not complain of any associated orthopnea or dizziness. A CXR was performed at the [place], which according to the patient showed pneumonia, and she was placed on oral Levaquin 500mg, her last dose was in the morning today. The next day she had an EKG done, which showed A Fib. Echo was done the same day , showed EF of 55-60%. Her protective signal operator is Dr. Cedillo. She also suffered from a nosebleed, she noticed a few drops of non clotted blood from her right nostril, not associated with any trauma. She does not recll when it happened, but did not complain of any associated pain or headaches. She now presents to the ER because her symptoms have not improved. She states that multiple residents in her long term have had the flu over the past few weeks, and she has had direct contact with some of these individuals.She does not complain of any associated cough, chest pain, fevers, hematuria, fainting, dizziness, vertigo, nausea, vomiting, diarrhea, constipation, or dysphagia. She normally has 2 soft BM per day, and she uses a diaper but is not incontinent. ER course was notable for: (1) Lasix 40mg (2) CXR report pending (3) MgSO4 Recent Travel: None PAST MEDICAL HISTORY: HTN HLD COPD CHF Hypothyroidism Thoracic Aortic Aneurysm AFib Rt Breast CA PAST SURGICAL HISTORY: Rt mastectomy 1980 Appendectomy 70 years ago Social History: Smokin pack/dy for 25 years, quit in 1980 whe she was diagnosed with Breast CA Alcohol: socially Drugs: none Family History: Mother had an MA, at the age of 64 Father had Lung CA, the age of 80 Sister had Stomach CA, the age of 80 Niece has Breast CA Daughter has CHF and kidney stones Allergies Keflex HOME MEDICATIONS: Home Medications Medication Instructions Recorded Aspirin [Baby Aspirin] 162 mg PO DAILY 10/18/11 Metoprolol Succinate [Toprol XL -] 50 mg PO DAILY 08/12/12 Furosemide [Lasix -] 40 mg PO DAILY 07/29/14 Levothyroxine [Synthroid -] 25 mcg PO DAILY 07/29/14 Pravastatin Sodium [Pravachol -] 40 mg PO HS 12/17/16 Cholecalciferol (Vitamin D3) 50,000 unit PO Q30D 06/16/19 [Vitamin D3] Levofloxacin [Levaquin] 500 mg PO DAILY 06/16/19 Lisinopril 20 mg PO DAILY 06/16/19 Loratadine 10 mg PO HS 06/16/19 Melatonin [Melatin] 3 mg PO HS 06/16/19 Polyethylene Glycol 3350 17 gm PO HS 06/16/19 Polyvinyl Alcohol [Artificial 1 drop OU BID 06/16/19 Tears] REVIEW OF SYSTEMS CONSTITUTIONAL: chills, generalized weakness Absent: fever, diaphoresis, malaise, loss of appetite, weight change HEENT: nasal congestion Absent: rhinorrhea, throat pain, throat swelling, difficulty swallowing, mouth swelling, ear pain, eye pain, visual changes CARDIOVASCULAR: lightheadedness, irregular heart rate Absent: chest pain, syncope, palpitations, peripheral edema RESPIRATORY: shortness of breath Absent: cough, dyspnea with exertion, orthopnea, wheezing, stridor, hemoptysis GASTROINTESTINAL: Absent: abdominal pain, abdominal distension, nausea, vomiting, diarrhea, constipation, melena, hematochezia GENITOURINARY: Absent: dysuria, frequency, urgency, hesitancy, hematuria, flank pain, genital pain MUSCULOSKELETAL: Absent: myalgia, arthralgia, joint swelling, back pain, neck pain SKIN: Absent: rash, itching, pallor HEMATOLOGIC/IMMUNOLOGIC: Absent: easy bleeding, easy bruising, lymphadenopathy, frequent infections ENDOCRINE: Absent: unexplained weight gain, unexplained weight loss, heat intolerance, cold intolerance NEUROLOGIC: Absent: headache, focal weakness or paresthesias, dizziness, unsteady gait, seizure, mental status changes, bladder or bowel incontinence PSYCHIATRIC: Absent: anxiety, depression, suicidal or homicidal ideation, hallucinations. PHYSICAL EXAMINATION Vital Signs - 24 hr 06/16/19 06/16/19 18:00 19:25 Temperature 97.7 F Pulse Rate 86 Pulse Rate [ 92 H Right Radial] Respiratory 18 25 H Rate Blood Pressure 132/70 Blood Pressure 125/62 [Left Arm] O2 Sat by Pulse 92 L 97 Oximetry (%) GENERAL: Awake, alert, and fully oriented, in no acute distress. HEAD: Normal with no signs of trauma. EYES: Pupils equal, round and reactive to light, extraocular movements intact, sclera anicteric, conjunctiva clear. No lid lag. EARS, NOSE, THROAT: Ears normal, nares patent, oropharynx clear without exudates. Moist mucous membranes. NECK: Normal range of motion, supple without lymphadenopathy, JVD, or masses. LUNGS:decreased air entry B/L, fine crackles B/L, no wheeze HEART: Irregular rate, S1 & S2 appreciated ABDOMEN: Soft, nontender, distended, normoactive bowel sounds, no guarding, no rebound, no masses. No hepatomegaly or splenomegaly. MUSCULOSKELETAL: Normal range of motion at all joints. No bony deformities or tenderness. No CVA tenderness. UPPER EXTREMITIES: 2+ pulses, warm, well-perfused. No cyanosis. No clubbing. No peripheral edema. 5/5 motor strength B/L LOWER EXTREMITIES: 2+ pitting edema B/L pulses, warm, well-perfused. No calf tenderness. 4/5 motor strength B/L NEUROLOGICAL: Cranial nerves II-XII intact. Normal speech, gait not observed, sensations intact B/L PSYCHIATRIC: Cooperative. Good eye contact. Appropriate mood and affect. SKIN: Warm, dry, normal turgor, no rashes or lesions noted, normal capillary refill. Laboratory Results - last 24 hr 06/16/19 06/16/19 06/16/19 18:30 18:30 18:30 WBC 7.4 RBC 4.41 Hgb 14.1 Hct 42.3 D MCV 96.0 MCH 31.9 MCHC 33.3 RDW 14.3 Plt Count 154 MPV 7.9 Absolute Neuts (auto) 5.7 Neutrophils % 76.8 Lymphocytes % 11.5 D Monocytes % 10.7 H Eosinophils % 0.4 D Basophils % 0.6 Nucleated RBC % 0 PT with INR 14.30 H INR 1.21 H PTT (Actin FS) 30.5 Sodium 132 L Potassium 4.2 Chloride 86 L Carbon Dioxide 40 H Anion Gap 6 L BUN 15.7 Creatinine 0.6 Est GFR (CKD-EPI)AfAm 93.66 Est GFR (CKD-EPI)NonAf 80.81 Random Glucose 92 Lactic Acid Calcium 8.9 Phosphorus 2.4 L Magnesium 1.7 L Total Bilirubin 0.7 AST 15 ALT 12 L Alkaline Phosphatase 95 Troponin I < 0.02 B-Natriuretic Peptide 3104.8 H Total Protein 6.4 Albumin 3.5 TSH Urine Color Urine Appearance Urine pH Ur Specific [place] Urine Protein Urine Glucose (UA) Urine Ketones Urine Blood Urine Nitrite Urine Bilirubin Urine Urobilinogen Ur Leukocyte Esterase 06/16/19 06/16/19 06/16/19 18:30 18:40 18:40 WBC RBC Hgb Hct MCV MCH MCHC RDW Plt Count MPV Absolute Neuts (auto) Neutrophils % Lymphocytes % Monocytes % Eosinophils % Basophils % Nucleated RBC % PT with INR INR PTT (Actin FS) Sodium Potassium Chloride Carbon Dioxide Anion Gap BUN Creatinine Est GFR (CKD-EPI)AfAm Est GFR (CKD-EPI)NonAf Random Glucose Lactic Acid 1.6 Calcium Phosphorus Magnesium Total Bilirubin AST ALT Alkaline Phosphatase Troponin I B-Natriuretic Peptide Total Protein Albumin TSH 3.00 Urine Color Yellow Urine Appearance Error Urine pH 5.5 Ur Specific [place] 1.007 L Urine Protein Negative Urine Glucose (UA) Negative Urine Ketones Negative Urine Blood Negative Urine Nitrite Negative Urine Bilirubin Negative Urine Urobilinogen 0.2 Ur Leukocyte Esterase Negative ASSESSMENT/PLAN: #Pneumonia - CXR read pending - Has been on oral Levaquin at long term, day 5 today - CT Chest to check for extent of pneumonia, prelim report shows B/L infiltrates #CHF exacerbation - Hx of PrEF Diastolic HF, EF 55-60% - CT Chest to quantify extent of pleural effusion, prelim read showed minimal effusion - Cuello placed at 5AM, Lasix 40mg given, urine output measured at 6AM net output 600ml - Currently afebrile with WBC wnl - Given Lasix 20mg IV in ER - Consult for Dr. Cedillo placed - Strict I/Os - Daily weights #Afib - Tele monitoring - continue ASA 162mg #Metabolic alkalosis - HCO3 40 - Probably contraction alkalosis after diuresis - Monitor levels, especially with continued diuresis #Hx of HTN - cont Toprol XL 50mg and Lisinopril 20mg #Hx of HLD - cont Lipitor 10mg PO #Hx of Hypothyroidism -cont. 25mcg #FEN - Mg 1.7, given IV MgSO4 1gm - Phs 2.4, given Phos Nak 2 packets PO #DVT PE - Lovenox 40mg #Dispo - Tele moitoring for AFib Visit type - Emergency Visit Emergency Visit: Yes ED Registration Date: 06/16/19 Care time: The patient presented to the Emergency Department on the above date and was hospitalized for further evaluation of their emergent condition. - New Patient This patient is new to me today: Yes Date on this admission: 06/21/19 - Critical Care Critical Care patient: No ATTENDING PHYSICIAN STATEMENT I saw and evaluated the patient. I reviewed the resident's note and discussed the case with the resident. I agree with the resident's findings and plan as documented. SUBJECTIVE: OBJECTIVE: ASSESSMENT AND PLAN:
[2019-06-16] MEDS: ATORVASTATIN CA 10 MG TABLET (FP) PO SCH (23:13)
[2019-06-16] MEDS: LORATADINE 10 MG TABLET PO SCH (23:13)
[2019-06-16] MEDS: POLYETHYLENE GLYCOL 3350 119 GM BTL PO SCH (23:15)
[2019-06-16] MEDS: MELATONIN 1 MG TABLET PO SCH (23:54)
[2019-06-16] MEDS: ARTIFICIAL TEARS (POLYVINYL ALCOHOL) OPTH DROPS OU SCH (23:55)
[2019-06-17] MEDS ORDERED: FUROSEMIDE 40 MG/4 ML INJECTABLE VIAL IVPUSH ONE (04:38)
[2019-06-17] MEDS ORDERED: FUROSEMIDE 40 MG/4 ML INJECTABLE VIAL ONE ×2 (04:59→09:38)
[2019-06-17] MEDS: LEVOTHYROXINE NA 25 MCG TABLET (FP) PO SCH (06:02)
--- NOTE | 2019-06-17 07:17 | PN ---
Physical Exam: SUBJECTIVE: Patient seen and examined OBJECTIVE: Vital Signs Period Temp Pulse Resp BP Sys/Meng Pulse Ox Last 24 Hr 97.5 F-98.7 F 80-92 18-25 125-145/62-78 92-97 GENERAL: The patient is awake, alert, and fully oriented, in no acute distress. HEAD: Normal with no signs of trauma. EYES: PERRL, extraocular movements intact, sclera anicteric, conjunctiva clear. No ptosis. ENT: Ears normal, nares patent, oropharynx clear without exudates, moist mucous membranes. NECK: Trachea midline, full range of motion, supple. LUNGS: Breath sounds equal, clear to auscultation bilaterally, no wheezes, no crackles, no accessory muscle use. HEART: Regular rate and rhythm, S1, S2 without murmur, rub or gallop. ABDOMEN: Soft, nontender, nondistended, normoactive bowel sounds, no guarding, no rebound, no hepatosplenomegaly, no masses. EXTREMITIES: 2+ pulses, warm, well-perfused, no edema. NEUROLOGICAL: Cranial nerves II through XII grossly intact. Normal speech, gait not observed. PSYCH: Normal mood, normal affect. SKIN: Warm, dry, normal turgor, no rashes or lesions noted Laboratory Results - last 24 hr 06/16/19 06/16/19 06/16/19 18:30 18:30 18:30 WBC 7.4 RBC 4.41 Hgb 14.1 Hct 42.3 D MCV 96.0 MCH 31.9 MCHC 33.3 RDW 14.3 Plt Count 154 MPV 7.9 Absolute Neuts (auto) 5.7 Neutrophils % 76.8 Lymphocytes % 11.5 D Monocytes % 10.7 H Eosinophils % 0.4 D Basophils % 0.6 Nucleated RBC % 0 PT with INR 14.30 H INR 1.21 H PTT (Actin FS) 30.5 Sodium 132 L Potassium 4.2 Chloride 86 L Carbon Dioxide 40 H Anion Gap 6 L BUN 15.7 Creatinine 0.6 Est GFR (CKD-EPI)AfAm 93.66 Est GFR (CKD-EPI)NonAf 80.81 Random Glucose 92 Lactic Acid Calcium 8.9 Phosphorus 2.4 L Magnesium 1.7 L Total Bilirubin 0.7 AST 15 ALT 12 L Alkaline Phosphatase 95 Troponin I < 0.02 B-Natriuretic Peptide 3104.8 H Total Protein 6.4 Albumin 3.5 TSH Urine Color Urine Appearance Urine pH Ur Specific [place] Urine Protein Urine Glucose (UA) Urine Ketones Urine Blood Urine Nitrite Urine Bilirubin Urine Urobilinogen Ur Leukocyte Esterase 06/16/19 06/16/19 06/16/19 18:30 18:40 18:40 WBC RBC Hgb Hct MCV MCH MCHC RDW Plt Count MPV Absolute Neuts (auto) Neutrophils % Lymphocytes % Monocytes % Eosinophils % Basophils % Nucleated RBC % PT with INR INR PTT (Actin FS) Sodium Potassium Chloride Carbon Dioxide Anion Gap BUN Creatinine Est GFR (CKD-EPI)AfAm Est GFR (CKD-EPI)NonAf Random Glucose Lactic Acid 1.6 Calcium Phosphorus Magnesium Total Bilirubin AST ALT Alkaline Phosphatase Troponin I B-Natriuretic Peptide Total Protein Albumin TSH 3.00 Urine Color Yellow Urine Appearance Error Urine pH 5.5 Ur Specific [place] 1.007 L Urine Protein Negative Urine Glucose (UA) Negative Urine Ketones Negative Urine Blood Negative Urine Nitrite Negative Urine Bilirubin Negative Urine Urobilinogen 0.2 Ur Leukocyte Esterase Negative Active Medications Generic Name Dose Route Start Last Admin Trade Name Freq PRN Reason Stop Dose Admin Artificial Tears 1 drop 06/16/19 22:00 06/16/19 23:55 Artificial Tears OU 1 drop BID [facility] Administration Aspirin 162 mg 06/17/19 10:00 Asa - PO DAILY [facility] Atorvastatin Calcium 10 mg 06/16/19 22:00 06/16/19 23:13 Lipitor - PO 10 mg HS NADIRA Administration Enoxaparin Sodium 40 mg 06/17/19 10:00 Lovenox - SQ DAILY [facility] Levothyroxine Sodium 25 mcg 06/17/19 07:00 06/17/19 06:02 Synthroid - PO 25 mcg DAILY@0700 NADIRA Administration Lisinopril 20 mg 06/17/19 10:00 Prinivil PO DAILY NADIRA Loratadine 10 mg 06/16/19 22:00 06/16/19 23:13 Claritin - PO 10 mg HS NADIRA Administration Melatonin 3 mg 06/16/19 22:00 06/16/19 23:54 Melatonin PO 3 mg HS NADIRA Administration Metoprolol Succinate 50 mg 06/17/19 10:00 Toprol Xl - PO DAILY [facility] Non-Formulary Medication 50,000 unit 06/16/19 22:00 Cholecalciferol (Vitamin D3) [Vitamin D3] PO Q30D [facility] Polyethylene Glycol 17 gm 06/16/19 22:00 06/16/19 23:15 Miralax (For Daily Use) - PO 17 grams HS [facility] Administration Active Medications Artificial Tears (Artificial Tears) 1 drop OU BID [facility] Last Admin: 06/16/19 23:55 Dose: 1 drop Aspirin (Asa -) 162 mg PO DAILY [facility] Atorvastatin Calcium (Lipitor -) 10 mg PO [facility] Last Admin: 06/16/19 23:13 Dose: 10 mg Enoxaparin Sodium (Lovenox -) 40 mg SQ DAILY [facility] Levothyroxine Sodium (Synthroid -) 25 mcg PO DAILY@0700 [facility] Last Admin: 06/17/19 06:02 Dose: 25 mcg Lisinopril (Prinivil) 20 mg PO DAILY [facility] Loratadine (Claritin -) 10 mg PO [facility] Last Admin: 06/16/19 23:13 Dose: 10 mg Melatonin (Melatonin) 3 mg PO [facility] Last Admin: 06/16/19 23:54 Dose: 3 mg Metoprolol Succinate (Toprol Xl -) 50 mg PO DAILY [facility] Non-Formulary Medication (Cholecalciferol (Vitamin D3) [Vitamin D3]) 50,000 unit PO Q30D [facility] Polyethylene Glycol (Miralax (For Daily Use) -) 17 gm PO [facility] Last Admin: 06/16/19 23:15 Dose: 17 grams ASSESSMENT/PLAN: ATTENDING PHYSICIAN STATEMENT I saw and evaluated the patient. I reviewed the resident's note and discussed the case with the resident. I agree with the resident's findings and plan as documented. SUBJECTIVE: OBJECTIVE: ASSESSMENT AND PLAN:
[2019-06-17 09:14] LABS: INR 1.18 (0.83-1.09); PROTHROMBIN TIME (PATIENT) 13.9 SEC (9.7-13.0)
--- NOTE | 2019-06-17 09:27 | CON.CARD ---
Consult Consult Specialty:: Cardiology Referred by:: Dr. Tan Reason for Consultation:: CHF - History of Present Illness Chief Complaint: SOB History of Present Illness: Hx obtained from daughter: Sydney is in senior living for last year. Thursday, she began to feel SOB with mild cough. CXR reportedly showed "Pneumonia " and "CHF" and was started on PO abx with no improvement and sent to ER yest. CT showed b/l effusions and consolidations suspicious for combination PNA and volume overload. PMH: obesity Chronic diastolic CHF secondary to HTN Known small, stable ascending aortic aneurysm 4cm Known AF, not anticoagulated prior to entering senior living as she was unsteady on her feet and thought to be falls risk. - History Source History Provided By: Patient, Family Member - Past Medical History Cardio/Vascular: Yes: CAD (non-obstx 2011), CHF, HTN, Hyperlipdemia, Other ( chronic venous insufficiency bilateral legs) Gastrointestinal: Yes: Diverticulitis, Diverticulosis Musculoskeletal: Yes: Chronic low back pain Endocrine: Yes: Hypothyroidism - Past Surgical History Past Surgical History: Yes: Appendectomy, Mastectomy (left) - Alcohol/Substance Use Hx Alcohol Use: No - Smoking History Smoking history: Former smoker Have you smoked in the past 12 months: No Aproximately how many cigarettes per day: 0 If you are a former smoker, when did you quit?: stopped 11years ago - Social History History of Recent Travel: No Home Medications - Allergies Allergies/Adverse Reactions: Allergies Allergy/AdvReac Type Severity Reaction Status Date / Time No Known Drug Allergies Allergy Verified 02/11/18 13:34 - Home Medications Home Medications: Ambulatory Orders Aspirin [Baby Aspirin] 162 mg PO DAILY 10/18/11 Metoprolol Succinate [Toprol XL -] 50 mg PO DAILY 08/12/12 Furosemide [Lasix -] 40 mg PO DAILY 07/29/14 Levothyroxine [Synthroid -] 25 mcg PO DAILY 07/29/14 Pravastatin Sodium [Pravachol -] 40 mg PO HS 12/17/16 Acetaminophen 1,000 mg PO DAILY 06/16/19 Cholecalciferol (Vitamin D3) [Vitamin D3] 50,000 unit PO Q30D 06/16/19 Cyanocobalamin (Vitamin B-12) [Vitamin B-12] 1 tablet PO DAILY 06/16/19 Guaifenesin/Dextromethorphan [Mucinex Dm ER 1,200-60 mg Tab] 1 each PO DAILY Ipratropium/Albuterol Sulfate [Iprat-Albut 0.5-3(2.5) mg/3 ml] 3 ml IH TID 06/16 Levofloxacin [Levaquin] 500 mg PO DAILY 06/16/19 Lisinopril 20 mg PO DAILY 06/16/19 Loratadine 10 mg PO HS 06/16/19 Melatonin [Melatin] 3 mg PO HS 06/16/19 Menthol [Icy Hot] 1 patch TP DAILY 06/16/19 Methyl Salicylate/Menthol [Bengay Greaseless Cream] 1 unit TP BID 06/16/19 Mometasone Furoate [Elocon] 1 unit TP DAILY 06/16/19 Oxymetazoline HCl [Nasal [place]] 1 spray IH BID 06/16/19 Petrolatum,White [Aquaphor] 1 unit TP BID 06/16/19 Polyethylene Glycol 3350 17 gm PO HS 06/16/19 Polyvinyl Alcohol [Artificial Tears] 1 drop OU BID 06/16/19 Family Disease History - Family Disease History Family Disease History: Heart Disease: Mother, Brother Review of Systems - Review of Systems Eyes: reports: No Symptoms HENT: reports: No Symptoms Cardiovascular: reports: Shortness of Breath Respiratory: reports: Cough, SOB on Exertion Gastrointestinal: reports: No Symptoms Genitourinary: reports: No Symptoms Breasts: reports: No Symptoms Reported Musculoskeletal: reports: No Symptoms Integumentary: reports: No Symptoms Neurological: reports: No Symptoms Endocrine: reports: No Symptoms Hematology/Lymphatic: reports: No Symptoms Psychiatric: reports: No Symptoms - Risk Factors Known Risk Factors: Yes: Hypertension Vital Signs: Vital Signs Temperature 98.6 F 06/17/19 09:01 Pulse Rate 90 06/17/19 09:01 Respiratory Rate 18 06/17/19 09:01 Blood Pressure 135/69 06/17/19 09:01 O2 Sat by Pulse Oximetry (%) 95 06/17/19 09:01 Constitutional: Yes: No Distress Respiratory: Yes: Other (decreased breath sounds bases) Gastrointestinal: Yes: Soft, Abdomen, Obese Cardiovascular: Yes: Pulse Irregular JVD: Yes Heart Sounds: Yes: S1, S2 (irregular) Edema: Yes Edema: LLE: 2+, RLE: 2+ Neurological: Yes: Alert, Oriented - Other Data Labs, Other Data: CBC, BMP 06/16/19 18:30 06/16/19 18:30 INR, PTT INR 1.18 (0.83-1.09) H 06/16/19 18:30 Troponin, BNP 06/16/19 18:30 Troponin I < 0.02 B-Natriuretic Peptide 3104.8 H Troponin, BNP 06/16/19 18:30 Troponin I < 0.02 B-Natriuretic Peptide 3104.8 H AF 77 TELE: Controlled AF rare VPCs Echo: Pending Imaging - Results Cat Scan: Image Reviewed EKG: Image Reviewed Assessment/Plan IMP: 1. Acute on chronic diastolic CHF 2. Permanent AF, controlled 3. Chronic HTN 4. Stable thoracic aortic aneurysm, 4cm 5. Possible PNA REC: 1. Cont tele to assess for adequate rate control, and Toprol XL 50mg daily for now. 2. D/w daughter: now that pt in senior living under closer supervision and with no recent falls, will d/c ASA and start Eliquis for stroke prevention. 3. Agree w/ IV Lasix, daily weights and BMP monitor renal fx. 4. Echo 5. Defer use abx for possible PNA to primary team
[2019-06-17] MEDS ORDERED: APIXABAN 2.5 MG TABLET PO SCH (10:00)
[2019-06-17] MEDS ORDERED: ASPIRIN 81 MG CHEWABLE TABLETS PO SCH (10:00)
[2019-06-17] MEDS ORDERED: ENOXAPARIN NA (PORCINE) 40 MG/0.4 ML DISP.SYRIN SQ SCH (10:00)
[2019-06-17] MEDS: FUROSEMIDE 40 MG/4 ML INJECTABLE VIAL IVPUSH SCH (10:06)
[2019-06-17] MEDS: APIXABAN 5 MG TABLET PO SCH ×2 (10:06→22:06)
[2019-06-17] MEDS: LISINOPRIL 20 MG TABLET (FP) PO SCH (10:06)
[2019-06-17] MEDS: ARTIFICIAL TEARS (POLYVINYL ALCOHOL) OPTH DROPS OU SCH ×2 (10:06→22:07)
[2019-06-17 10:24] LABS: ANION GAP 4 MMOL/L (8-16); BLOOD UREA NITROGEN 15.6 mg/dL (7-18); CALCIUM 8.9 mg/dL (8.5-10.1); CHLORIDE 82 mmol/L (98-107); CO2 > 45 mmol/L (21-32); CREATININE 0.7 mg/dL (0.55-1.3); GLUCOSE,RANDOM 138 mg/dL (74-106); MAGNESIUM 1.8 mg/dL (1.8-2.4); PHOSPHOROUS 3.2 mg/dL (2.5-4.9); POTASSIUM 3.5 mmol/L (3.5-5.1); SODIUM 131 mmol/L (136-145)
--- NOTE | 2019-06-17 11:23 | ECHO ---
Name: CLINTON MORA Exam:Adult Echocardiogram Study Date: 06/17/2019 10:11 AM Age: 88 yrs Reason For Study: CHF Height: 60 in Weight: 300 lb BSA: 2.2 m2 MMode/2D Measurements & Calculations LAV (MOD-bp): 88.0 ml Doppler Measurements & Calculations Ao V2 max: 255.4 cm/sec LV V1 max P.1 mmHg Ao max P.1 mmHg LV V1 mean P.3 mmHg Ao V2 mean: 166.6 cm/sec LV V1 max: 72.1 cm/sec Ao mean P.5 mmHg LV V1 mean: 54.9 cm/sec Ao V2 VTI: 51.9 cm LV V1 VTI: 15.7 cm TR max audrey: 317.8 cm/sec PA V2 max: 103.3 cm/sec TR max P.6 mmHg PA max P.3 mmHg RVSP(TR): 50.6 mmHg Med Peak E' Audrey: 7.5 cm/sec RAP systole: 10.0 mmHg Lat Peak E' Audrey: 7.0 cm/sec Left Ventricle Left ventricular systolic function is normal. Ejection Fraction = 55-60%. Right Ventricle The right ventricle is normal in size and function. Atria The left atrium is mildly dilated. Right atrial size is normal. Mitral Valve There is trivial mitral valve thickening. There is no mitral valve stenosis. There is mild mitral regurgitation. Tricuspid Valve The tricuspid valve is not well visualized, but is grossly normal. There is mild tricuspid regurgitat ion. Right ventricular systolic pressure is elevated at 40-50mmHg. Aortic Valve Mild valvular aortic stenosis. No aortic regurgitation is present. Pulmonic Valve The pulmonic valve is not well seen, but is grossly normal. There is no pulmonic valvular stenosis. T race pulmonic valvular regurgitation. Great Vessels Mildly dilated descending aorta. The ascending aorta measures 4.0cm. Pericardium/Pleura Trivial pericardial effusion not hemodynamically significant. Interpretation Summary Left ventricular systolic function is normal. Ejection Fraction = 55-60%. The left atrium is mildly dilated. There is mild tricuspid regurgitation. Right ventricular systolic pressure is elevated at 40-50mmHg. The right ventricle is normal in size and function. There is mild mitral regurgitation. Mild valvular aortic stenosis. Trivial pericardial effusion not hemodynamically significant Mildly dilated descending aorta. The ascending aorta measures 4.0cm. MD Silvestre *Mamadou 06/17/2019 11:22 AM
--- NOTE | 2019-06-17 11:44 | EKG ---
Test Reason : Blood Pressure : / mmHG Vent. Rate : 079 BPM Atrial Rate : 060 BPM P-R Int : 000 ms QRS Dur : 088 ms QT Int : 374 ms P-R-T Axes : 000 014 032 degrees QTc Int : 428 ms ATRIAL FIBRILLATION WITH PREMATURE VENTRICULAR OR ABERRANTLY CONDUCTED COMPLEXES ABNORMAL ECG WHEN COMPARED WITH ECG OF 06-MAR-2018 20:31, Confirmed by MIGUEL BANDA MD ([id number]) on 06/17/2019 11:44:10 AM Referred By: Confirmed By:MIGUEL BANDA MD
--- NOTE | 2019-06-17 11:50 | PN ---
Teaching Attending Note Name of Resident: Giovany Decker ATTENDING PHYSICIAN STATEMENT I saw and evaluated the patient. I reviewed the resident's note and discussed the case with the resident. I agree with the resident's findings and plan as documented. SUBJECTIVE: Some improvement in dyspnea. No cough/sputum/hemoptysis. No fever/ chills. OBJECTIVE: Afebrile, Hemodynamicaly Stable. Last Vital Signs Temp Pulse Resp BP Pulse Ox 98.6 F 90 18 135/69 95 06/17/19 09:01 06/17/19 09:01 06/17/19 09:01 06/17/19 09:01 06/17/19 09:01 HEENT - Atramatic, Normocephalic. Heart - S1, S2, Irregular Lungs - decreased air entry at bases Abdomen - Soft, non-tender. Bowel Sound normal. Extremities - no edema, no calf tenderness. Laboratory Results - last 24 hr 06/16/19 06/16/19 06/16/19 18:30 18:30 18:30 WBC 7.4 RBC 4.41 Hgb 14.1 Hct 42.3 D MCV 96.0 MCH 31.9 MCHC 33.3 RDW 14.3 Plt Count 154 MPV 7.9 Absolute Neuts (auto) 5.7 Neutrophils % 76.8 Lymphocytes % 11.5 D Monocytes % 10.7 H Eosinophils % 0.4 D Basophils % 0.6 Nucleated RBC % 0 PT with INR 13.90 H INR 1.18 H PTT (Actin FS) 30.5 Sodium 132 L Potassium 4.2 Chloride 86 L Carbon Dioxide 40 H Anion Gap 6 L BUN 15.7 Creatinine 0.6 Est GFR (CKD-EPI)AfAm 93.66 Est GFR (CKD-EPI)NonAf 80.81 Random Glucose 92 Lactic Acid Calcium 8.9 Phosphorus 2.4 L Magnesium 1.7 L Total Bilirubin 0.7 AST 15 ALT 12 L Alkaline Phosphatase 95 Troponin I < 0.02 B-Natriuretic Peptide 3104.8 H Total Protein 6.4 Albumin 3.5 TSH Urine Color Urine Appearance Urine pH Ur Specific [place] Urine Protein Urine Glucose (UA) Urine Ketones Urine Blood Urine Nitrite Urine Bilirubin Urine Urobilinogen Ur Leukocyte Esterase 06/16/19 06/16/19 06/16/19 18:30 18:40 18:40 WBC RBC Hgb Hct MCV MCH MCHC RDW Plt Count MPV Absolute Neuts (auto) Neutrophils % Lymphocytes % Monocytes % Eosinophils % Basophils % Nucleated RBC % PT with INR INR PTT (Actin FS) Sodium Potassium Chloride Carbon Dioxide Anion Gap BUN Creatinine Est GFR (CKD-EPI)AfAm Est GFR (CKD-EPI)NonAf Random Glucose Lactic Acid 1.6 Calcium Phosphorus Magnesium Total Bilirubin AST ALT Alkaline Phosphatase Troponin I B-Natriuretic Peptide Total Protein Albumin TSH 3.00 Urine Color Yellow Urine Appearance Error Urine pH 5.5 Ur Specific [place] 1.007 L Urine Protein Negative Urine Glucose (UA) Negative Urine Ketones Negative Urine Blood Negative Urine Nitrite Negative Urine Bilirubin Negative Urine Urobilinogen 0.2 Ur Leukocyte Esterase Negative 06/17/19 09:40 WBC RBC Hgb Hct MCV MCH MCHC RDW Plt Count MPV Absolute Neuts (auto) Neutrophils % Lymphocytes % Monocytes % Eosinophils % Basophils % Nucleated RBC % PT with INR INR PTT (Actin FS) Sodium 131 L Potassium 3.5 Chloride 82 L Carbon Dioxide > 45 H Anion Gap 4 L BUN 15.6 Creatinine 0.7 Est GFR (CKD-EPI)AfAm 89.03 Est GFR (CKD-EPI)NonAf 76.82 Random Glucose 138 H Lactic Acid Calcium 8.9 Phosphorus 3.2 Magnesium 1.8 Total Bilirubin AST ALT Alkaline Phosphatase Troponin I B-Natriuretic Peptide Total Protein Albumin TSH Urine Color Urine Appearance Urine pH Ur Specific [place] Urine Protein Urine Glucose (UA) Urine Ketones Urine Blood Urine Nitrite Urine Bilirubin Urine Urobilinogen Ur Leukocyte Esterase Current Medications Generic Name Dose Route Start Last Admin Trade Name Freq PRN Reason Stop Dose Admin Apixaban 5 mg 06/17/19 10:00 06/17/19 10:06 Eliquis - PO 5 mg BID NADIRA Administration Artificial Tears 1 drop 06/16/19 22:00 06/17/19 10:06 Artificial Tears OU 1 drop BID NADIRA Administration Atorvastatin Calcium 10 mg 06/16/19 22:00 06/16/19 23:13 Lipitor - PO 10 mg HS NADIRA Administration Furosemide 40 mg 06/18/19 10:00 06/17/19 10:06 Lasix Injection - IVPUSH 40 mg DAILY NADIRA Administration Levothyroxine Sodium 25 mcg 06/17/19 07:00 06/17/19 06:02 Synthroid - PO 25 mcg DAILY@0700 NADIRA Administration Lisinopril 20 mg 06/17/19 10:00 06/17/19 10:06 Prinivil PO 20 mg DAILY [facility] Administration Loratadine 10 mg 06/16/19 22:00 06/16/19 23:13 Claritin - PO 10 mg HS [facility] Administration Melatonin 3 mg 06/16/19 22:00 06/16/19 23:54 Melatonin PO 3 mg HS [facility] Administration Metoprolol Succinate 50 mg 06/17/19 10:00 06/17/19 10:06 Toprol Xl - PO 50 mg DAILY [facility] Administration Non-Formulary Medication 50,000 unit 06/16/19 22:00 Cholecalciferol (Vitamin D3) [Vitamin D3] PO Q30D [facility] Polyethylene Glycol 17 gm 06/16/19 22:00 06/16/19 23:15 Miralax (For Daily Use) - PO 17 grams HS [facility] Administration Home Medications Medication Instructions Recorded Aspirin [Baby Aspirin] 162 mg PO DAILY 10/18/11 Metoprolol Succinate [Toprol XL -] 50 mg PO DAILY 08/12/12 Furosemide [Lasix -] 40 mg PO DAILY 07/29/14 Levothyroxine [Synthroid -] 25 mcg PO DAILY 07/29/14 Pravastatin Sodium [Pravachol -] 40 mg PO HS 12/17/16 Acetaminophen 1,000 mg PO DAILY 06/16/19 Cholecalciferol (Vitamin D3) 50,000 unit PO Q30D 06/16/19 [Vitamin D3] Cyanocobalamin (Vitamin B-12) 1 tablet PO DAILY 06/16/19 [Vitamin B-12] Guaifenesin/Dextromethorphan 1 each PO DAILY 06/16/19 [Mucinex Dm ER 1,200-60 mg Tab] Ipratropium/Albuterol Sulfate 3 ml IH TID 06/16/19 [Iprat-Albut 0.5-3(2.5) mg/3 ml] Levofloxacin [Levaquin] 500 mg PO DAILY 06/16/19 Lisinopril 20 mg PO DAILY 06/16/19 Loratadine 10 mg PO HS 06/16/19 Melatonin [Melatin] 3 mg PO HS 06/16/19 Menthol [Icy Hot] 1 patch TP DAILY 06/16/19 Methyl Salicylate/Menthol [Bengay 1 unit TP BID 06/16/19 Greaseless Cream] Mometasone Furoate [Elocon] 1 unit TP DAILY 06/16/19 Oxymetazoline HCl [Nasal [place]] 1 spray IH BID 06/16/19 Petrolatum,White [Aquaphor] 1 unit TP BID 06/16/19 Polyethylene Glycol 3350 17 gm PO HS 06/16/19 Polyvinyl Alcohol [Artificial 1 drop OU BID 06/16/19 Tears] ASSESSMENT/PLAN: 88 year old male with history of HTN, HLD, Chronic Diastolic CHF, CAD, HLD, Atrial Fibrillation, CRF secondary to COPD (on 2L O2 via [place]), Thoracic Aortic Aneurysm, R Breast Ca s/p Mastectomy, hypothyroidism, Pulmonary HTN, brought from [place] for SOB, generalized lethargy/weakness after 5 da treatment with Levaquin for Pneumonia. 1. Acute on Chronic Diastolic CHF sec to acute decompensated diastolic CHF EF 55-60% Continue IV Lasix. Monitor I/Os, Daily weights, renal function. Cardiology consulted. 2. Pneumonia - confirmed on CT Chest. Recently completed 5 day Rx with levofloxacin. No leukocytosis, no fever Radiology findings likely lagging behind clinical progress. Will monitor off Abx therapy 3. HTN - Continue Toprol, Lisinopril 4. Atrial Fibrillation - persistent - Started on Eliquis by Cardiology in addition to Metoprolol. 5. Hypothyroidism - Continue Levothyroxine. 6. HLD - Continue Statin. 7. CAD - Continue BB, ACEI, Statin. 8. CRF sec to COPD on 2L O2 via [place] at home. Stable. No evidence of acute decompensation. DVT Px - on Eliquis Code Status - DNR/DNI.
--- NOTE | 2019-06-17 11:56 | PN ---
Physical Exam: SUBJECTIVE: 88 y/o F w PMH HTN, HLD, Chronic diastolic CHF, CAD, HLD, atrial fibrillation, chronic respiratory failure secondary to COPD (on 2L O2 via [place]), thoracic aortic aneurysm, RIGHT breast CA s/p mastectomy, hypothyroidism, pulmonary HTN, brought [place] for [place]B, generalized lethargy/weakness after 5 day treatment with levaquin for pneumonia. and admitted for acute on chronic respiratory failure. Pt seen at bedside today. She offers no complaints and is on [place] 2L. She denies SOB, CP and NVFD. OBJECTIVE: Vital Signs Temp Pulse Resp BP Pulse Ox 98.6 F 81 20 121/64 95 06/17/19 09:01 06/17/19 14:00 06/17/19 14:00 06/17/19 14:00 06/17/19 09:01 GENERAL: The patient is awake, alert, and fully oriented, in no acute distress. Speaks Filipino and Syrian. HEAD: NCAT EYES: CECY EOMI, sclera anicteric, conjunctiva clear. No ptosis. ENT: Ears normal, nares patent, oropharynx clear without exudates, moist mucous membranes. NECK: Trachea midline, full range of motion, supple. LUNGS: Breath sounds decreased over RIGHT lower lobe, clear to auscultation bilaterally, no wheezes, no crackles, no accessory muscle use. HEART: Irregular rate and rhythm, S1, S2 without murmur, rub or gallop. ABDOMEN: Obese, soft, nontender, nondistended, normoactive bowel sounds, no guarding, no rebound, no hepatosplenomegaly, no masses. EXTREMITIES: 1+ edema, 2+ pulses, warm, well-perfused, no edema. NEUROLOGICAL: Cranial nerves II through XII grossly intact. Normal speech, gait not observed. PSYCH: Normal mood, normal affect. SKIN: Warm, dry, normal turgor, no rashes or lesions noted Laboratory Results - last 24 hr 06/16/19 06/16/19 06/16/19 18:30 18:30 18:30 WBC 7.4 RBC 4.41 Hgb 14.1 Hct 42.3 D MCV 96.0 MCH 31.9 MCHC 33.3 RDW 14.3 Plt Count 154 MPV 7.9 Absolute Neuts (auto) 5.7 Neutrophils % 76.8 Lymphocytes % 11.5 D Monocytes % 10.7 H Eosinophils % 0.4 D Basophils % 0.6 Nucleated RBC % 0 PT with INR 13.90 H INR 1.18 H PTT (Actin FS) 30.5 Sodium 132 L Potassium 4.2 Chloride 86 L Carbon Dioxide 40 H Anion Gap 6 L BUN 15.7 Creatinine 0.6 Est GFR (CKD-EPI)AfAm 93.66 Est GFR (CKD-EPI)NonAf 80.81 Random Glucose 92 Lactic Acid Calcium 8.9 Phosphorus 2.4 L Magnesium 1.7 L Total Bilirubin 0.7 AST 15 ALT 12 L Alkaline Phosphatase 95 Troponin I < 0.02 B-Natriuretic Peptide 3104.8 H Total Protein 6.4 Albumin 3.5 TSH Urine Color Urine Appearance Urine pH Ur Specific [place] Urine Protein Urine Glucose (UA) Urine Ketones Urine Blood Urine Nitrite Urine Bilirubin Urine Urobilinogen Ur Leukocyte Esterase 06/16/19 06/16/19 06/16/19 18:30 18:40 18:40 WBC RBC Hgb Hct MCV MCH MCHC RDW Plt Count MPV Absolute Neuts (auto) Neutrophils % Lymphocytes % Monocytes % Eosinophils % Basophils % Nucleated RBC % PT with INR INR PTT (Actin FS) Sodium Potassium Chloride Carbon Dioxide Anion Gap BUN Creatinine Est GFR (CKD-EPI)AfAm Est GFR (CKD-EPI)NonAf Random Glucose Lactic Acid 1.6 Calcium Phosphorus Magnesium Total Bilirubin AST ALT Alkaline Phosphatase Troponin I B-Natriuretic Peptide Total Protein Albumin TSH 3.00 Urine Color Yellow Urine Appearance Error Urine pH 5.5 Ur Specific [place] 1.007 L Urine Protein Negative Urine Glucose (UA) Negative Urine Ketones Negative Urine Blood Negative Urine Nitrite Negative Urine Bilirubin Negative Urine Urobilinogen 0.2 Ur Leukocyte Esterase Negative 06/17/19 09:40 WBC RBC Hgb Hct MCV MCH MCHC RDW Plt Count MPV Absolute Neuts (auto) Neutrophils % Lymphocytes % Monocytes % Eosinophils % Basophils % Nucleated RBC % PT with INR INR PTT (Actin FS) Sodium 131 L Potassium 3.5 Chloride 82 L Carbon Dioxide > 45 H Anion Gap 4 L BUN 15.6 Creatinine 0.7 Est GFR (CKD-EPI)AfAm 89.03 Est GFR (CKD-EPI)NonAf 76.82 Random Glucose 138 H Lactic Acid Calcium 8.9 Phosphorus 3.2 Magnesium 1.8 Total Bilirubin AST ALT Alkaline Phosphatase Troponin I B-Natriuretic Peptide Total Protein Albumin TSH Urine Color Urine Appearance Urine pH Ur Specific [place] Urine Protein Urine Glucose (UA) Urine Ketones Urine Blood Urine Nitrite Urine Bilirubin Urine Urobilinogen Ur Leukocyte Esterase Active Medications Apixaban (Eliquis -) 5 mg PO BID [facility] Last Admin: 06/17/19 10:06 Dose: 5 mg Artificial Tears (Artificial Tears) 1 drop OU BID [facility] Last Admin: 06/17/19 10:06 Dose: 1 drop Atorvastatin Calcium (Lipitor -) 10 mg PO HS [facility] Last Admin: 06/16/19 23:13 Dose: 10 mg Furosemide (Lasix Injection -) 40 mg IVPUSH DAILY [facility] Last Admin: 06/17/19 10:06 Dose: 40 mg Levothyroxine Sodium (Synthroid -) 25 mcg PO DAILY@0700 [facility] Last Admin: 06/17/19 06:02 Dose: 25 mcg Lisinopril (Prinivil) 20 mg PO DAILY [facility] Last Admin: 06/17/19 10:06 Dose: 20 mg Loratadine (Claritin -) 10 mg PO HS [facility] Last Admin: 06/16/19 23:13 Dose: 10 mg Melatonin (Melatonin) 3 mg PO [facility] Last Admin: 06/16/19 23:54 Dose: 3 mg Metoprolol Succinate (Toprol Xl -) 50 mg PO DAILY [facility] Last Admin: 06/17/19 10:06 Dose: 50 mg Non-Formulary Medication (Cholecalciferol (Vitamin D3) [Vitamin D3]) 50,000 unit PO Q30D [facility] Polyethylene Glycol (Miralax (For Daily Use) -) 17 gm PO [facility] Last Admin: 06/16/19 23:15 Dose: 17 grams ASSESSMENT/PLAN: 88 y/o F w PMH HTN, HLD, Chronic diastolic CHF, CAD, HLD, atrial fibrillation, chronic respiratory failure secondary to COPD (on 2L O2 via [place]), thoracic aortic aneurysm, RIGHT breast CA s/p mastectomy, hypothyroidism, pulmonary HTN, brought [place] for [place], generalized lethargy/weakness after 5 day treatment with levaquin for pneumonia. # Acute on chronic diastolic CHF 2/2 acute decompensated diastolic CHF - EF 55-60% - Continue IV Lasix. - Monitor I/Os, daily weights, renal function. - Cont. telemetry to assess for adequate rate control - Toprol XL 50mg daily for now. - Cardiology consulted (Dr. Sommers) # PNA - Confirmed on CT chest - Completed 5 days of levofloxacin. - No leukocytosis - Afebrile - Will monitor off abx therapy # HTN - Continue Toprol, Lisinopril # A. fib - Persistent - Eliquis in addition to Metoprolol per Cardiology # Hypothyroidism - Cont. levothyroxine. # HLD - Continue Statin. # CAD - Cont. BB, ACEi, statin. # Chronic resp. failure 2/2 COPD - Home 2L O2 via [place] - Stable - No evidence of acute decompensation # F/E/N - Not on standing fluids - Cont. to monitor electrolytes - Low sodium diet # DVT prophylaxis - SCD # Disposition - Telemetry - DNR/DNI Giovany Decker Visit type - Emergency Visit Emergency Visit: No - New Patient This patient is new to me today: Yes Date on this admission: 06/17/19 - Critical Care Critical Care patient: No - Discharge Referral Referred to [facility] Med P.C.: No ATTENDING PHYSICIAN STATEMENT I saw and evaluated the patient. I reviewed the resident's note and discussed the case with the resident. I agree with the resident's findings and plan as documented. SUBJECTIVE: OBJECTIVE: ASSESSMENT AND PLAN:
[2019-06-17] MEDS: LORATADINE 10 MG TABLET PO SCH (22:06)
[2019-06-17] MEDS: POLYETHYLENE GLYCOL 3350 119 GM BTL PO SCH (22:07)
[2019-06-17] MEDS: ATORVASTATIN CA 10 MG TABLET (FP) PO SCH (22:07)
[2019-06-17] MEDS: MELATONIN 1 MG TABLET PO SCH (22:07)
[2019-06-18] MEDS: LEVOTHYROXINE NA 25 MCG TABLET (FP) PO SCH (06:24)
[2019-06-18 08:32] LABS: BASO % 0.4 % (0-2.0); EOS % 1.2 % (0-4.5); HEMATOCRIT 41.3 % (32.4-45.2); LYMPH % 16.2 % (8-40); MCH 32.2 pg (25.7-33.7); MCHC 33.9 g/dl (32.0-36.0); MEAN CELL VOLUME 95.1 fl (80-96); MEAN PLT VOLUME 8.1 fl (7.5-11.1); MONO % 13.2 % (3.8-10.2); PLATELET COUNT 155 K/MM3 (134-434); RBC 4.34 M/mm3 (3.60-5.2); RDW 14.5 % (11.6-15.6); WHITE BLOOD COUNT 6.6 K/mm3 (4.0-10.0)
[2019-06-18 08:57] LABS: ALBUMIN 3.3 g/dl (3.4-5.0); ALK PHOS 92 U/L (45-117); ANION GAP 7 MMOL/L (8-16); BILIRUBIN,TOTAL 0.9 mg/dL (0.2-1); BLOOD UREA NITROGEN 17.2 mg/dL (7-18); CALCIUM 8.7 mg/dL (8.5-10.1); CHLORIDE 80 mmol/L (98-107); CO2 > 45 mmol/L (21-32); CREATININE 0.6 mg/dL (0.55-1.3); GLUCOSE,RANDOM 77 mg/dL (74-106); MAGNESIUM 1.8 mg/dL (1.8-2.4); PHOSPHOROUS 3.6 mg/dL (2.5-4.9); POTASSIUM 3.2 mmol/L (3.5-5.1); SGOT/AST 12 U/L (15-37); SGPT/ALT 10 U/L (13-61); SODIUM 133 mmol/L (136-145); TOT PROT 5.9 g/dl (6.4-8.2)
[2019-06-18] MEDS: FUROSEMIDE 40 MG/4 ML INJECTABLE VIAL IVPUSH SCH (10:20)
[2019-06-18] MEDS: APIXABAN 5 MG TABLET PO SCH ×2 (10:20→22:25)
[2019-06-18] MEDS: ARTIFICIAL TEARS (POLYVINYL ALCOHOL) OPTH DROPS OU SCH ×2 (10:21→22:27)
[2019-06-18] MEDS: LACTOBACILLUS ACIDOPHILUS 1 TABLET PO SCH (10:26)
[2019-06-18] MEDS ORDERED: POTASSIUM CHLORIDE TABS 20 MEQ TABLET.ER (FP) PO ONE (10:45)
--- NOTE | 2019-06-18 10:58 | PN ---
Progress Note (short form) - Note Progress Note: s: no cp palps dizzy; sob better Current Medications Generic Name Dose Route Start Last Admin Trade Name Kadeem PRN Reason Stop Dose Admin Apixaban 5 mg 06/17/19 10:00 06/18/19 10:20 Eliquis - PO 5 mg BID [facility] Administration Artificial Tears 1 drop 06/16/19 22:00 06/18/19 10:21 Artificial Tears OU 1 drop BID [facility] Administration Atorvastatin Calcium 10 mg 06/16/19 22:00 06/17/19 22:07 Lipitor - PO 10 mg HS [facility] Administration Furosemide 40 mg 06/18/19 10:00 06/18/19 10:20 Lasix Injection - IVPUSH 40 mg DAILY [facility] Administration Lactobacillus Acidophilus 1 tab 06/18/19 10:45 06/18/19 10:26 Bacid - PO 1 tab DAILY [facility] Administration Levothyroxine Sodium 25 mcg 06/17/19 07:00 06/18/19 06:24 Synthroid - PO 25 mcg DAILY@0700 [facility] Administration Lisinopril 20 mg 06/17/19 10:00 06/17/19 10:06 Prinivil PO 20 mg DAILY [facility] Administration Loratadine 10 mg 06/16/19 22:00 06/17/19 22:06 Claritin - PO 10 mg HS [facility] Administration Melatonin 3 mg 06/16/19 22:00 06/17/19 22:07 Melatonin PO 3 mg HS [facility] Administration Metoprolol Succinate 50 mg 06/17/19 10:00 06/17/19 10:06 Toprol Xl - PO 50 mg DAILY [facility] Administration Non-Formulary Medication 50,000 unit 06/16/19 22:00 Cholecalciferol (Vitamin D3) [Vitamin D3] PO Q30D [facility] Polyethylene Glycol 17 gm 06/16/19 22:00 06/17/19 22:07 Miralax (For Daily Use) - PO Not Given HS [facility] Vital Signs Period Temp Pulse Resp BP Sys/Meng Pulse Ox Last 24 Hr 97.9 F-98.3 F 69-85 18-20 105-147/53-92 96 Constitutional: Yes: No Distress Respiratory: Yes: Other (decreased breath sounds bases) Gastrointestinal: Yes: Soft, Abdomen, Obese Cardiovascular: Yes: Pulse Irregular JVD: Yes Heart Sounds: Yes: S1, S2 (irregular) Edema: Yes Edema: LLE: 1+, RLE: 1+ Neurological: Yes: Alert, Oriented - Other Data Labs, Other Data: CBC, BMP 06/18/19 06:28 06/18/19 06:28 AF 77 TELE: Controlled AF echo 05/2019: nl lv/rv, lae, mild tr, mild mr, mild as, rvsp 40-50, mild ao root dil Imaging - Results Cat Scan: Image Reviewed EKG: Image Reviewed Assessment/Plan IMP: 1. Acute on chronic diastolic CHF 2. Permanent AF, controlled 3. Chronic HTN 4. Stable thoracic aortic aneurysm, 4cm 5. Possible PNA REC: 1. Cont tele to assess for adequate rate control, and Toprol XL 50mg daily for now. 2. D/w daughter: now that pt in snf under closer supervision and with no recent falls, d/c ASA and start Eliquis for stroke prevention. 3. Agree w/ IV Lasix, daily weights and BMP monitor renal fx. 4. Echo unremarkable 5. Defer use abx for possible PNA to primary team
--- NOTE | 2019-06-18 11:35 | PN ---
Teaching Attending Note Name of Resident: Giovany Decker ATTENDING PHYSICIAN STATEMENT I saw and evaluated the patient. I reviewed the resident's note and discussed the case with the resident. I agree with the resident's findings and plan as documented. SUBJECTIVE: Some improvement in dyspnea. No cough/sputum/hemoptysis. No fever/ chills. OBJECTIVE: Afebrile, Hemodynamicaly Stable. Last Vital Signs Temp Pulse Resp BP Pulse Ox 97.9 F 75 18 105/53 L 96 06/18/19 08:17 06/18/19 10:04 06/18/19 10:04 06/18/19 10:04 06/17/19 20:29 Heart - S1, S2, irregular Lungs - decreased air entry lower zones Abdomen - Soft, non-tender. Bowel Sound normal. Extremities - Edema ++, no calf tenderness. Laboratory Results - last 24 hr 06/18/19 06/18/19 06:28 06:28 WBC 6.6 RBC 4.34 Hgb 14.0 Hct 41.3 MCV 95.1 MCH 32.2 MCHC 33.9 RDW 14.5 Plt Count 155 MPV 8.1 Absolute Neuts (auto) 4.5 Neutrophils % 69.0 Lymphocytes % 16.2 D Monocytes % 13.2 H Eosinophils % 1.2 D Basophils % 0.4 Nucleated RBC % 0 Sodium 133 L Potassium 3.2 L Chloride 80 L Carbon Dioxide > 45 H Anion Gap 7 L BUN 17.2 Creatinine 0.6 Est GFR (CKD-EPI)AfAm 93.66 Est GFR (CKD-EPI)NonAf 80.81 Random Glucose 77 Calcium 8.7 Phosphorus 3.6 Magnesium 1.8 Total Bilirubin 0.9 AST 12 L ALT 10 L Alkaline Phosphatase 92 Total Protein 5.9 L Albumin 3.3 L Current Medications Generic Name Dose Route Start Last Admin Trade Name Freq PRN Reason Stop Dose Admin Apixaban 5 mg 06/17/19 10:00 06/18/19 10:20 Eliquis - PO 5 mg BID [facility] Administration Artificial Tears 1 drop 06/16/19 22:00 06/18/19 10:21 Artificial Tears OU 1 drop BID [facility] Administration Atorvastatin Calcium 10 mg 06/16/19 22:00 06/17/19 22:07 Lipitor - PO 10 mg HS [facility] Administration Furosemide 40 mg 06/18/19 10:00 06/18/19 10:20 Lasix Injection - IVPUSH 40 mg DAILY [facility] Administration Lactobacillus Acidophilus 1 tab 06/18/19 10:45 06/18/19 10:26 Bacid - PO 1 tab DAILY [facility] Administration Levothyroxine Sodium 25 mcg 06/17/19 07:00 06/18/19 06:24 Synthroid - PO 25 mcg DAILY@0700 [facility] Administration Lisinopril 20 mg 06/17/19 10:00 06/17/19 10:06 Prinivil PO 20 mg DAILY [facility] Administration Loratadine 10 mg 06/16/19 22:00 06/17/19 22:06 Claritin - PO 10 mg HS [facility] Administration Melatonin 3 mg 06/16/19 22:00 06/17/19 22:07 Melatonin PO 3 mg HS [facility] Administration Metoprolol Succinate 50 mg 06/17/19 10:00 06/17/19 10:06 Toprol Xl - PO 50 mg DAILY [facility] Administration Non-Formulary Medication 50,000 unit 06/16/19 22:00 Cholecalciferol (Vitamin D3) [Vitamin D3] PO Q30D [facility] Polyethylene Glycol 17 gm 06/16/19 22:00 06/17/19 22:07 Miralax (For Daily Use) - PO Not Given [facility] Home Medications Medication Instructions Recorded Aspirin [Baby Aspirin] 162 mg PO DAILY 10/18/11 Metoprolol Succinate [Toprol XL -] 50 mg PO DAILY 08/12/12 Furosemide [Lasix -] 40 mg PO DAILY 07/29/14 Levothyroxine [Synthroid -] 25 mcg PO DAILY 07/29/14 Pravastatin Sodium [Pravachol -] 40 mg PO HS 12/17/16 Acetaminophen 1,000 mg PO DAILY 06/16/19 Cholecalciferol (Vitamin D3) 50,000 unit PO Q30D 06/16/19 [Vitamin D3] Cyanocobalamin (Vitamin B-12) 1 tablet PO DAILY 06/16/19 [Vitamin B-12] Guaifenesin/Dextromethorphan 1 each PO DAILY 06/16/19 [Mucinex Dm ER 1,200-60 mg Tab] Ipratropium/Albuterol Sulfate 3 ml IH TID 06/16/19 [Iprat-Albut 0.5-3(2.5) mg/3 ml] Levofloxacin [Levaquin] 500 mg PO DAILY 06/16/19 Lisinopril 20 mg PO DAILY 06/16/19 Loratadine 10 mg PO HS 06/16/19 Melatonin [Melatin] 3 mg PO HS 06/16/19 Menthol [Icy Hot] 1 patch TP DAILY 06/16/19 Methyl Salicylate/Menthol [Bengay 1 unit TP BID 06/16/19 Greaseless Cream] Mometasone Furoate [Elocon] 1 unit TP DAILY 06/16/19 Oxymetazoline HCl [Nasal [place]] 1 spray IH BID 06/16/19 Petrolatum,White [Aquaphor] 1 unit TP BID 06/16/19 Polyethylene Glycol 3350 17 gm PO HS 06/16/19 Polyvinyl Alcohol [Artificial 1 drop OU BID 06/16/19 Tears] ASSESSMENT/PLAN: 88 year old male with history of HTN, HLD, Chronic Diastolic CHF, CAD, HLD, Atrial Fibrillation, CRF secondary to COPD (on 2L O2 via [place]), Thoracic Aortic Aneurysm, R Breast Ca s/p Mastectomy, hypothyroidism, Pulmonary HTN, brought [place] for SOB, generalized lethargy/weakness after 5 da treatment with Levaquin for Pneumonia. 1. Acute on Chronic Diastolic CHF sec to acute decompensated diastolic CHF Elevated BNP, congestion on CXR with bilateral effusions. EF 55-60%, elevated RV syst pressure, Ascending Aorta 4cm Continue IV Lasix. Monitor I/Os, Daily weights, renal function. Cardiology following. 2. Pneumonia - confirmed on CT Chest. Recently completed 5 day Rx with levofloxacin. No leukocytosis, no fever Radiology findings likely lagging behind clinical progress. Will start Abx for UTI 3. HTN - Continue Toprol, Lisinopril 4. Atrial Fibrillation - persistent - Started on Eliquis by Cardiology in addition to Metoprolol. 5. Hypothyroidism - Continue Levothyroxine. 6. HLD - Continue Statin. 7. CAD - Continue BB, ACEI, Statin. 8. CRF sec to COPD on 2L O2 via [place] at home. Stable. No evidence of acute decompensation. 9. Hypokalemia - repleted. 10. UTI - Urine Cx positve for NLFGNB > 100,000 CFU/ml. Reports dysuria prior to villareal insertion. Will treat with Ceftriaxone pending final Urine Cx results. DVT Px - on Eliquis Code Status - DNR/DNI.
[2019-06-18] MEDS ORDERED: cefTRIAXone SODIUM 1 GM VIAL ONE (12:14)
[2019-06-18] MEDS ORDERED: DEXTROSE 5%-WATER - 50 ML IVPB ONE (12:14)
[2019-06-18] MEDS: CEFTRIAXONE 1 GM in DEXTROSE 5%-WATER - 50 ML IVPB SCH (12:23)
--- NOTE | 2019-06-18 15:46 | PN ---
Physical Exam: SUBJECTIVE: 88 y/o F w PMH HTN, HLD, Chronic diastolic CHF, CAD, HLD, atrial fibrillation, chronic respiratory failure secondary to COPD (on 2L O2 via [place]), thoracic aortic aneurysm, RIGHT breast CA s/p mastectomy, hypothyroidism, pulmonary HTN, brought from [place] for SOB, generalized lethargy/weakness after 5 day treatment with levaquin for pneumonia. Aadmitted for acute on chronic respiratory failure. Pt seen at bedside today ROSS 3. No events over night. She offers no complaints and is on [place] 2L. She denies SOB, CP and NVFD. OBJECTIVE: Vital Signs Temp Pulse Resp BP Pulse Ox 98.9 F 88 18 114/44 L 95 06/18/19 20:06 06/18/19 20:06 06/18/19 20:06 06/18/19 20:06 06/18/19 20:06 GENERAL: The patient is awake, alert, and fully oriented, in no acute distress. Speaks Sinhala and Iraqi. HEAD: NCAT EYES: CECY, EOMI, sclera anicteric, conjunctiva clear. No ptosis. ENT: Ears normal, nares patent, oropharynx clear without exudates, moist mucous membranes. NECK: Trachea midline, full range of motion, supple. LUNGS: Rales BL Breath sounds equal, no wheezes, no crackles, no accessory muscle use. HEART: Irregular rate and rhythm, S1, S2 without murmur, rub or gallop. ABDOMEN: Soft, nontender, nondistended, normoactive bowel sounds, no guarding, no rebound, no hepatosplenomegaly, no masses. EXTREMITIES: 1+ edema BL LE 2+ pulses, warm, well-perfused, NEUROLOGICAL: Cranial nerves II through XII grossly intact. Normal speech, gait not observed. PSYCH: Normal mood, normal affect. SKIN: Warm, dry, normal turgor, no rashes or lesions noted Laboratory Results - last 24 hr 06/18/19 06/18/19 06:28 06:28 WBC 6.6 RBC 4.34 Hgb 14.0 Hct 41.3 MCV 95.1 MCH 32.2 MCHC 33.9 RDW 14.5 Plt Count 155 MPV 8.1 Absolute Neuts (auto) 4.5 Neutrophils % 69.0 Lymphocytes % 16.2 D Monocytes % 13.2 H Eosinophils % 1.2 D Basophils % 0.4 Nucleated RBC % 0 Sodium 133 L Potassium 3.2 L Chloride 80 L Carbon Dioxide > 45 H Anion Gap 7 L BUN 17.2 Creatinine 0.6 Est GFR (CKD-EPI)AfAm 93.66 Est GFR (CKD-EPI)NonAf 80.81 Random Glucose 77 Calcium 8.7 Phosphorus 3.6 Magnesium 1.8 Total Bilirubin 0.9 AST 12 L ALT 10 L Alkaline Phosphatase 92 Total Protein 5.9 L Albumin 3.3 L Active Medications Apixaban (Eliquis -) 5 mg PO BID [facility] Last Admin: 06/18/19 10:20 Dose: 5 mg Artificial Tears (Artificial Tears) 1 drop OU BID [facility] Last Admin: 06/18/19 10:21 Dose: 1 drop Atorvastatin Calcium (Lipitor -) 10 mg PO HS [facility] Last Admin: 06/17/19 22:07 Dose: 10 mg Furosemide (Lasix Injection -) 40 mg IVPUSH DAILY [facility] Last Admin: 06/18/19 10:20 Dose: 40 mg Ceftriaxone Sodium 1 gm/ (Dextrose) 50 mls @ 100 mls/hr IVPB DAILY [facility]; Protocol Last Admin: 06/18/19 12:23 Dose: 100 mls/hr Lactobacillus Acidophilus (Bacid -) 1 tab PO DAILY [facility] Last Admin: 06/18/19 10:26 Dose: 1 tab Levothyroxine Sodium (Synthroid -) 25 mcg PO DAILY@0700 [facility] Last Admin: 06/18/19 06:24 Dose: 25 mcg Lisinopril (Prinivil) 20 mg PO DAILY [facility] Last Admin: 06/17/19 10:06 Dose: 20 mg Loratadine (Claritin -) 10 mg PO HS [facility] Last Admin: 06/17/19 22:06 Dose: 10 mg Melatonin (Melatonin) 3 mg PO HS [facility] Last Admin: 06/17/19 22:07 Dose: 3 mg Metoprolol Succinate (Toprol Xl -) 50 mg PO DAILY [facility] Last Admin: 06/18/19 12:31 Dose: 50 mg Non-Formulary Medication (Cholecalciferol (Vitamin D3) [Vitamin D3]) 50,000 unit PO Q30D [facility] Polyethylene Glycol (Miralax (For Daily Use) -) 17 gm PO [facility] Last Admin: 06/17/19 22:07 Dose: Not Given ASSESSMENT/PLAN: 88 y/o F w PMH HTN, HLD, Chronic diastolic CHF, CAD, HLD, atrial fibrillation, chronic respiratory failure secondary to COPD (on 2L O2 via [place]), thoracic aortic aneurysm, RIGHT breast CA s/p mastectomy, hypothyroidism, pulmonary HTN, brought from [place] for SOB, generalized lethargy/weakness after 5 day treatment with levaquin for pneumonia. # Acute on chronic diastolic CHF 2/2 acute decompensated diastolic CHF - EF 55-60% - Continue IV Lasix. - Monitor I/Os, daily weights, renal function. - Cont. telemetry to assess for adequate rate control - Toprol XL 50mg daily for now. - Cardiology consulted (Dr. Pagan) # UTI - Urine Cx positve for NLFGNB > 100,000 CFU/ml - Reports dysuria prior to villareal insertion - Ceftriaxone pending final urine cx results # PNA - Confirmed on CT chest - Completed 5 days of levofloxacin. - No leukocytosis - Afebrile - Will monitor off abx therapy # HTN - Continue Toprol, Lisinopril # A. fib - Persistent - Cardiology consulted (Dr. Pagan) - Eliquis in addition to Metoprolol 50mg QD per cardiology - Cont. tele to assess for adequate rate control - d/c ASA and start Eliquis for stroke prevention given close supervision in [place] - Cont. IV Lasix, daily weights and BMP monitor renal fx. - Echo unremarkable # Hypothyroidism - Cont. levothyroxine. # HLD - Continue Statin. # CAD - Cont. BB, ACEi, statin. # Chronic resp. failure 2/2 COPD - Home 2L O2 via [place] - Stable - No evidence of acute decompensation # F/E/N - Not on standing fluids - Cont. to monitor electrolytes - Low sodium diet # DVT prophylaxis - Eliquis # Disposition - Telemetry - DNR/DNI Giovany Decker MD Visit type - Emergency Visit Emergency Visit: No - New Patient This patient is new to me today: No - Critical Care Critical Care patient: No - Discharge Referral Referred to [facility] Med P.C.: No ATTENDING PHYSICIAN STATEMENT I saw and evaluated the patient. I reviewed the resident's note and discussed the case with the resident. I agree with the resident's findings and plan as documented. SUBJECTIVE: OBJECTIVE: ASSESSMENT AND PLAN:
[2019-06-18] MEDS: LISINOPRIL 20 MG TABLET (FP) PO SCH (16:24)
[2019-06-18] MEDS ORDERED: PT OWN MED DRAWER 7, Y5N ONE (20:15)
[2019-06-18] MEDS: ATORVASTATIN CA 10 MG TABLET (FP) PO SCH (22:24)
[2019-06-18] MEDS: LORATADINE 10 MG TABLET PO SCH (22:25)
[2019-06-18] MEDS: MELATONIN 1 MG TABLET PO SCH (22:25)
[2019-06-18] MEDS: POLYETHYLENE GLYCOL 3350 119 GM BTL PO SCH (22:26)
[2019-06-19] MEDS ORDERED: ACETAMINOPHEN 325 MG TABLET (FP) PO ONE (03:45)
[2019-06-19] MEDS: LEVOTHYROXINE NA 25 MCG TABLET (FP) PO SCH (06:43)
[2019-06-19 07:13] LABS: BASO % 0.5 % (0-2.0); EOS % 1.5 % (0-4.5); HEMATOCRIT 42.6 % (32.4-45.2); HEMOGLOBIN 14.3 GM/dL (10.7-15.3); LYMPH % 18.3 % (8-40); MCH 32.2 pg (25.7-33.7); MCHC 33.7 g/dl (32.0-36.0); MEAN CELL VOLUME 95.7 fl (80-96); MONO % 13.1 % (3.8-10.2); NEUT % 66.6 % (42.8-82.8); PLATELET COUNT 166 K/MM3 (134-434); RBC 4.44 M/mm3 (3.60-5.2); RDW 14.3 % (11.6-15.6); WHITE BLOOD COUNT 7.5 K/mm3 (4.0-10.0)
[2019-06-19 07:48] LABS: ALBUMIN 3.2 g/dl (3.4-5.0); ALK PHOS 91 U/L (45-117); ANION GAP 5 MMOL/L (8-16); BILIRUBIN,TOTAL 0.7 mg/dL (0.2-1); BLOOD UREA NITROGEN 19.6 mg/dL (7-18); CALCIUM 8.9 mg/dL (8.5-10.1); CHLORIDE 86 mmol/L (98-107); CO2 > 45 mmol/L (21-32); CREATININE 0.7 mg/dL (0.55-1.3); GLUCOSE,RANDOM 85 mg/dL (74-106); PHOSPHOROUS 3.5 mg/dL (2.5-4.9); POTASSIUM 3.7 mmol/L (3.5-5.1); SGOT/AST 11 U/L (15-37); SGPT/ALT 10 U/L (13-61); SODIUM 136 mmol/L (136-145)
[2019-06-19] MEDS ORDERED: cefTRIAXone SODIUM 1 GM VIAL ONE (09:12)
[2019-06-19] MEDS ORDERED: DEXTROSE 5%-WATER - 50 ML IVPB ONE (09:12)
[2019-06-19] MEDS: LACTOBACILLUS ACIDOPHILUS 1 TABLET PO SCH (10:20)
[2019-06-19] MEDS: LISINOPRIL 20 MG TABLET (FP) PO SCH (10:20)
[2019-06-19] MEDS: APIXABAN 5 MG TABLET PO SCH ×2 (10:20→21:36)
[2019-06-19] MEDS: FUROSEMIDE 40 MG TABLET (FP) PO SCH (10:20)
[2019-06-19] MEDS: ARTIFICIAL TEARS (POLYVINYL ALCOHOL) OPTH DROPS OU SCH ×2 (10:21→21:24)
[2019-06-19] MEDS: CEFTRIAXONE 1 GM in DEXTROSE 5%-WATER - 50 ML IVPB SCH (10:21)
--- NOTE | 2019-06-19 10:56 | PN ---
Progress Note (short form) - Note Progress Note: s: no cp palps dizzy; sob better Current Medications Generic Name Dose Route Start Last Admin Trade Name Kadeem PRN Reason Stop Dose Admin Apixaban 5 mg 06/17/19 10:00 06/19/19 10:20 Eliquis - PO 5 mg BID [facility] Administration Artificial Tears 1 drop 06/16/19 22:00 06/19/19 10:21 Artificial Tears OU 1 drop BID [facility] Administration Atorvastatin Calcium 10 mg 06/16/19 22:00 06/18/19 22:24 Lipitor - PO 10 mg HS [facility] Administration Furosemide 40 mg 06/19/19 10:00 06/19/19 10:20 Lasix - PO 40 mg DAILY [facility] Administration Ceftriaxone Sodium 1 gm/ 50 mls @ 100 mls/hr 06/18/19 11:55 06/19/19 10:21 Dextrose IVPB 100 mls/hr DAILY [facility] Administration Protocol Lactobacillus Acidophilus 1 tab 06/18/19 10:45 06/19/19 10:20 Bacid - PO 1 tab DAILY [facility] Administration Levothyroxine Sodium 25 mcg 06/17/19 07:00 06/19/19 06:43 Synthroid - PO 25 mcg DAILY@0700 [facility] Administration Lisinopril 20 mg 06/17/19 10:00 06/19/19 10:20 Prinivil PO 20 mg DAILY [facility] Administration Loratadine 10 mg 06/16/19 22:00 06/18/19 22:25 Claritin - PO 10 mg HS [facility] Administration Melatonin 3 mg 06/16/19 22:00 06/18/19 22:25 Melatonin PO 3 mg HS [facility] Administration Metoprolol Succinate 50 mg 06/17/19 10:00 06/19/19 10:20 Toprol Xl - PO 50 mg DAILY [facility] Administration Non-Formulary Medication 50,000 unit 06/16/19 22:00 Cholecalciferol (Vitamin D3) [Vitamin D3] PO Q30D [facility] Polyethylene Glycol 17 gm 06/16/19 22:00 06/18/19 22:26 Miralax (For Daily Use) - PO Not Given HS [facility] Vital Signs Period Temp Pulse Resp BP Sys/Meng Pulse Ox Last 24 Hr 98.2 F-98.9 F 76-88 18-18 98-135/41-63 95 Constitutional: Yes: No Distress Respiratory: Yes: cta bl nl eff Gastrointestinal: Yes: Soft, Abdomen, Obese Cardiovascular: Yes: Pulse Irregular JVD: Yes Heart Sounds: Yes: S1, S2 (irregular) Edema: no Neurological: Yes: Alert, Oriented - Other Data Labs, Other Data: CBC, BMP 06/19/19 06:46 06/19/19 06:46 TELE: Controlled AF echo 05/2019: nl lv/rv, lae, mild tr, mild mr, mild as, rvsp 40-50, mild ao root dil Imaging - Results Cat Scan: Image Reviewed EKG: Image Reviewed Assessment/Plan IMP: 1. Acute on chronic diastolic CHF 2. Permanent AF, controlled 3. Chronic HTN 4. Stable thoracic aortic aneurysm, 4cm 5. Possible PNA, uti REC: 1. rate controlled on bb, dc tele 2. D/w daughter: now that pt in custodial under closer supervision and with no recent falls, d/c ASA and start Eliquis for stroke prevention. 3. Vol status improved with iv lasix, now on po 4. Echo unremarkable 5. Abx per primary
--- NOTE | 2019-06-19 11:24 | PN ---
Progress Note (short form) - Note Progress Note: SUBJECTIVE: Improvement in dyspnea. No cough/sputum/hemoptysis. No fever/ chills. OBJECTIVE: Afebrile, Hemodynamicaly Stable. Last Vital Signs Temp Pulse Resp BP Pulse Ox 98.5 F 79 18 108/50 L 95 06/19/19 10:00 06/19/19 10:00 06/19/19 10:00 06/19/19 10:00 06/18/19 20:06 Heart - S1, S2, irregular Lungs - decreased air entry lower zones Abdomen - Soft, non-tender. Bowel Sound normal. Extremities - LE Edema +, no calf tenderness. Laboratory Results - last 24 hr 06/19/19 06/19/19 06:46 06:46 WBC 7.5 RBC 4.44 Hgb 14.3 Hct 42.6 MCV 95.7 MCH 32.2 MCHC 33.7 RDW 14.3 Plt Count 166 MPV 8.0 Absolute Neuts (auto) 5.0 Neutrophils % 66.6 Lymphocytes % 18.3 Monocytes % 13.1 H Eosinophils % 1.5 Basophils % 0.5 Nucleated RBC % 0 Sodium 136 Potassium 3.7 Chloride 86 L Carbon Dioxide > 45 H Anion Gap 5 L BUN 19.6 H Creatinine 0.7 Est GFR (CKD-EPI)AfAm 89.03 Est GFR (CKD-EPI)NonAf 76.82 Random Glucose 85 Calcium 8.9 Phosphorus 3.5 Magnesium 2.0 Total Bilirubin 0.7 AST 11 L ALT 10 L Alkaline Phosphatase 91 Total Protein 6.0 L Albumin 3.2 L Current Medications Generic Name Dose Route Start Last Admin Trade Name Freq PRN Reason Stop Dose Admin Apixaban 5 mg 06/17/19 10:06/19/19 10:20 Eliquis - PO 5 mg BID [facility] Administration Artificial Tears 1 drop 06/16/19 22:00 06/19/19 10:21 Artificial Tears OU 1 drop BID [facility] Administration Atorvastatin Calcium 10 mg 06/16/19 22:00 06/18/19 22:24 Lipitor - PO 10 mg HS [facility] Administration Furosemide 40 mg 06/19/19 10:00 06/19/19 10:20 Lasix - PO 40 mg DAILY [facility] Administration Ceftriaxone Sodium 1 gm/ 50 mls @ 100 mls/hr 06/18/19 11:55 06/19/19 10:21 Dextrose IVPB 100 mls/hr DAILY [facility] Administration Protocol Lactobacillus Acidophilus 1 tab 06/18/19 10:45 06/19/19 10:20 Bacid - PO 1 tab DAILY [facility] Administration Levothyroxine Sodium 25 mcg 06/17/19 07:00 06/19/19 06:43 Synthroid - PO 25 mcg DAILY@0700 [facility] Administration Lisinopril 20 mg 06/17/19 10:00 06/19/19 10:20 Prinivil PO 20 mg DAILY [facility] Administration Loratadine 10 mg 06/16/19 22:00 06/18/19 22:25 Claritin - PO 10 mg HS [facility] Administration Melatonin 3 mg 06/16/19 22:00 06/18/19 22:25 Melatonin PO 3 mg HS [facility] Administration Metoprolol Succinate 50 mg 06/17/19 10:00 06/19/19 10:20 Toprol Xl - PO 50 mg DAILY [facility] Administration Non-Formulary Medication 50,000 unit 06/16/19 22:00 Cholecalciferol (Vitamin D3) [Vitamin D3] PO Q30D [facility] Polyethylene Glycol 17 gm 06/16/19 22:00 06/18/19 22:26 Miralax (For Daily Use) - PO Not Given [facility] Home Medications Medication Instructions Recorded Aspirin [Baby Aspirin] 162 mg PO DAILY 10/18/11 Metoprolol Succinate [Toprol XL -] 50 mg PO DAILY 08/12/12 Furosemide [Lasix -] 40 mg PO DAILY 07/29/14 Levothyroxine [Synthroid -] 25 mcg PO DAILY 07/29/14 Pravastatin Sodium [Pravachol -] 40 mg PO HS 12/17/16 Acetaminophen 1,000 mg PO DAILY 06/16/19 Cholecalciferol (Vitamin D3) 50,000 unit PO Q30D 06/16/19 [Vitamin D3] Cyanocobalamin (Vitamin B-12) 1 tablet PO DAILY 06/16/19 [Vitamin B-12] Guaifenesin/Dextromethorphan 1 each PO DAILY 06/16/19 [Mucinex Dm ER 1,200-60 mg Tab] Ipratropium/Albuterol Sulfate 3 ml IH TID 06/16/19 [Iprat-Albut 0.5-3(2.5) mg/3 ml] Levofloxacin [Levaquin] 500 mg PO DAILY 06/16/19 Lisinopril 20 mg PO DAILY 06/16/19 Loratadine 10 mg PO HS 06/16/19 Melatonin [Melatin] 3 mg PO HS 06/16/19 Menthol [Icy Hot] 1 patch TP DAILY 06/16/19 Methyl Salicylate/Menthol [Bengay 1 unit TP BID 06/16/19 Greaseless Cream] Mometasone Furoate [Elocon] 1 unit TP DAILY 06/16/19 Oxymetazoline HCl [Nasal [place]] 1 spray IH BID 06/16/19 Petrolatum,White [Aquaphor] 1 unit TP BID 06/16/19 Polyethylene Glycol 3350 17 gm PO HS 06/16/19 Polyvinyl Alcohol [Artificial 1 drop OU BID 06/16/19 Tears] ASSESSMENT/PLAN: 88 year old male with history of HTN, HLD, Chronic Diastolic CHF, CAD, HLD, Atrial Fibrillation, CRF secondary to COPD (on 2L O2 via [place]), Thoracic Aortic Aneurysm, R Breast Ca s/p Mastectomy, hypothyroidism, Pulmonary HTN, brought [place] for SOB, generalized lethargy/weakness after 5 da treatment with Levaquin for Pneumonia. 1. Acute Hypoxic Respiratory Failure secondary to Acute on Chronic Diastolic CHF decompensation Elevated BNP, congestion on CXR with bilateral effusions. EF 55-60%, elevated RV syst pressure, Ascending Aorta 4cm IV Lasix transitioned to PO (mild bump in BUN) Monitor I/Os, Daily weights, renal function. Cardiology following. 2. Pneumonia - confirmed on CT Chest. Recently completed 5 day Rx with levofloxacin. No leukocytosis, no fever Radiology findings likely lagging behind clinical progress. On ceftriaxone for UTI 3. HTN - Continue Toprol, Lisinopril. 4. Atrial Fibrillation - persistent - Started on Eliquis by Cardiology in addition to Metoprolol. ASA discontinued. 5. Hypothyroidism - Continue Levothyroxine. 6. HLD - Continue Statin. 7. CAD - Continue BB, VIOLETA-I, Statin. 8. COPD - unclear whether on 2L O2 via [place] at [place]. Stable - No evidence of acute decompensation. Need to confirm with [place] re: baseline O2 requirements. 9. Hypokalemia - repleted. 10. UTI - Urine Cx positve for EColi > 100,000 CFU/ml. Reports dysuria prior to villareal insertion. Day 2 Ceftriaxone. DVT Px - on Eliquis Code Status - DNR/DNI. Visit type - Emergency Visit Emergency Visit: No - New Patient This patient is new to me today: No - Critical Care Critical Care patient: No - Discharge Referral Referred to [facility] Med P.C.: No
[2019-06-19] MEDS: ATORVASTATIN CA 10 MG TABLET (FP) PO SCH (21:24)
[2019-06-19] MEDS: POLYETHYLENE GLYCOL 3350 119 GM BTL PO SCH (21:30)
[2019-06-19] MEDS: LORATADINE 10 MG TABLET PO SCH (21:36)
[2019-06-19] MEDS: MELATONIN 1 MG TABLET PO SCH (22:00)
[2019-06-19 23:53] VITALS: BMI 40.6
[2019-06-20] MEDS: LEVOTHYROXINE NA 25 MCG TABLET (FP) PO SCH (06:05)
[2019-06-20] MEDS ORDERED: cefTRIAXone SODIUM 1 GM VIAL ONE (09:50)
[2019-06-20] MEDS: ARTIFICIAL TEARS (POLYVINYL ALCOHOL) OPTH DROPS OU SCH ×2 (09:53→22:21)
[2019-06-20] MEDS: CEFTRIAXONE 1 GM in DEXTROSE 5%-WATER - 50 ML IVPB SCH (09:54)
[2019-06-20] MEDS: LACTOBACILLUS ACIDOPHILUS 1 TABLET PO SCH (09:54)
[2019-06-20] MEDS: LISINOPRIL 20 MG TABLET (FP) PO SCH (09:54)
[2019-06-20] MEDS: FUROSEMIDE 40 MG TABLET (FP) PO SCH (09:54)
[2019-06-20] MEDS: APIXABAN 5 MG TABLET PO SCH ×2 (09:54→22:20)
[2019-06-20 10:12] LABS: ANION GAP 4 MMOL/L (8-16); BLOOD UREA NITROGEN 22.2 mg/dL (7-18); CALCIUM 8.6 mg/dL (8.5-10.1); CHLORIDE 89 mmol/L (98-107); CO2 > 45 mmol/L (21-32); CREATININE 0.7 mg/dL (0.55-1.3); GLUCOSE,RANDOM 132 mg/dL (74-106); POTASSIUM 3.4 mmol/L (3.5-5.1); SODIUM 138 mmol/L (136-145)
--- NOTE | 2019-06-20 10:53 | PN ---
Progress Note (short form) - Note Progress Note: s: no cp palps dizzy; sob better Current Medications Generic Name Dose Route Start Last Admin Trade Name Kadeem PRN Reason Stop Dose Admin Apixaban 5 mg 06/17/19 10:00 06/20/19 09:54 Eliquis - PO 5 mg BID NADIRA Administration Artificial Tears 1 drop 06/16/19 22:00 06/20/19 09:53 Artificial Tears OU 1 drop BID NADIRA Administration Atorvastatin Calcium 10 mg 06/16/19 22:00 06/19/19 21:24 Lipitor - PO 10 mg HS NADIRA Administration Furosemide 40 mg 06/19/19 10:00 06/20/19 09:54 Lasix - PO 40 mg DAILY NADIRA Administration Ceftriaxone Sodium 1 gm/ 50 mls @ 100 mls/hr 06/18/19 11:55 06/20/19 09:54 Dextrose IVPB 100 mls/hr DAILY NADIRA Administration Protocol Lactobacillus Acidophilus 1 tab 06/18/19 10:45 06/20/19 09:54 Bacid - PO 1 tab DAILY NADIRA Administration Levothyroxine Sodium 25 mcg 06/17/19 07:00 06/20/19 06:05 Synthroid - PO 25 mcg DAILY@0700 NADIRA Administration Lisinopril 20 mg 06/17/19 10:00 06/20/19 09:54 Prinivil PO 20 mg DAILY NADIRA Administration Loratadine 10 mg 06/16/19 22:00 06/19/19 21:36 Claritin - PO 10 mg HS NADIRA Administration Melatonin 3 mg 06/16/19 22:00 06/19/19 22:00 Melatonin PO Not Given HS NADIRA Metoprolol Succinate 50 mg 06/17/19 10:00 06/20/19 09:54 Toprol Xl - PO 50 mg DAILY NADIRA Administration Non-Formulary Medication 50,000 unit 06/16/19 22:00 Cholecalciferol (Vitamin D3) [Vitamin D3] PO Q30D NADIRA Polyethylene Glycol 17 gm 06/16/19 22:00 06/19/19 21:30 Miralax (For Daily Use) - PO 17 grams HS NADIRA Administration Vital Signs Period Temp Pulse Resp BP Sys/Meng Pulse Ox Last 24 Hr 97.7 F-98.4 F 78-96 18-21 98-139/42-75 82-96 Constitutional: Yes: No Distress Respiratory: Yes: cta bl nl eff Gastrointestinal: Yes: Soft, Abdomen, Obese Cardiovascular: Yes: Pulse Irregular JVD: Yes Heart Sounds: Yes: S1, S2 (irregular) Edema: no Neurological: Yes: Alert, Oriented - Other Data Labs, Other Data: CBC, BMP 06/19/19 06:46 06/20/19 09:15 TELE: Controlled AF echo 05/2019: nl lv/rv, lae, mild tr, mild mr, mild as, rvsp 40-50, mild ao root dil Imaging - Results Cat Scan: Image Reviewed EKG: Image Reviewed Assessment/Plan IMP: 1. Acute on chronic diastolic CHF 2. Permanent AF, controlled 3. Chronic HTN 4. Stable thoracic aortic aneurysm, 4cm 5. Possible PNA, uti REC: 1. rate controlled on bb, dc tele 2. D/w daughter: now that pt in skilled nursing under closer supervision and with no recent falls, d/c ASA and start Eliquis for stroke prevention. 3. Vol status improved with iv lasix, now on po 4. Echo unremarkable 5. Abx per primary
[2019-06-20] MEDS ORDERED: POTASSIUM CHLORIDE TABS 20 MEQ TABLET.ER (FP) PO ONE (14:46)
--- NOTE | 2019-06-20 14:46 | PN ---
Teaching Attending Note Name of Resident: Adrianna Kat ATTENDING PHYSICIAN STATEMENT I saw and evaluated the patient. I reviewed the resident's note and discussed the case with the resident. I agree with the resident's findings and plan as documented. SUBJECTIVE: Improvement in dyspnea. No cough/sputum/hemoptysis. No fever/ chills. OBJECTIVE: Afebrile, Hemodynamicaly Stable. Last Vital Signs Temp Pulse Resp BP Pulse Ox 97.9 F 84 20 114/48 L 96 06/20/19 02:00 06/20/19 10:00 06/20/19 10:00 06/20/19 10:00 06/20/19 08:33 Heart - S1, S2, irregular Lungs - decreased air entry lower zones Abdomen - Soft, non-tender. Bowel Sound normal. Extremities - LE Edema +, no calf tenderness. Laboratory Results - last 24 hr 06/20/19 09:15 Sodium 138 Potassium 3.4 L Chloride 89 L Carbon Dioxide > 45 H Anion Gap 4 L BUN 22.2 H Creatinine 0.7 Est GFR (CKD-EPI)AfAm 89.03 Est GFR (CKD-EPI)NonAf 76.82 Random Glucose 132 H Calcium 8.6 Current Medications Generic Name Dose Route Start Last Admin Trade Name Freq PRN Reason Stop Dose Admin Apixaban 5 mg 06/17/19 10:00 06/20/19 09:54 Eliquis - PO 5 mg BID NADIRA Administration Artificial Tears 1 drop 06/16/19 22:00 06/20/19 09:53 Artificial Tears OU 1 drop BID NADIRA Administration Atorvastatin Calcium 10 mg 06/16/19 22:00 06/19/19 21:24 Lipitor - PO 10 mg HS NADIRA Administration Furosemide 40 mg 06/19/19 10:00 06/20/19 09:54 Lasix - PO 40 mg DAILY NADIRA Administration Ceftriaxone Sodium 1 gm/ 50 mls @ 100 mls/hr 06/18/19 11:55 06/20/19 09:54 Dextrose IVPB 06/23/19 11:54 100 mls/hr DAILY NADIRA Administration Protocol Lactobacillus Acidophilus 1 tab 06/18/19 10:45 06/20/19 09:54 Bacid - PO 1 tab DAILY NADIRA Administration Levothyroxine Sodium 25 mcg 06/17/19 07:00 06/20/19 06:05 Synthroid - PO 25 mcg DAILY@0700 NADIRA Administration Lisinopril 20 mg 06/17/19 10:00 06/20/19 09:54 Prinivil PO 20 mg DAILY [facility] Administration Loratadine 10 mg 06/16/19 22:00 06/19/19 21:36 Claritin - PO 10 mg HS [facility] Administration Melatonin 3 mg 06/16/19 22:00 06/19/19 22:00 Melatonin PO Not Given HS [facility] Metoprolol Succinate 50 mg 06/17/19 10:00 06/20/19 09:54 Toprol Xl - PO 50 mg DAILY [facility] Administration Non-Formulary Medication 50,000 unit 06/16/19 22:00 Cholecalciferol (Vitamin D3) [Vitamin D3] PO Q30D [facility] Polyethylene Glycol 17 gm 06/16/19 22:00 06/19/19 21:30 Miralax (For Daily Use) - PO 17 grams HS [facility] Administration Home Medications Medication Instructions Recorded Aspirin [Baby Aspirin] 162 mg PO DAILY 10/18/11 Metoprolol Succinate [Toprol XL -] 50 mg PO DAILY 08/12/12 Furosemide [Lasix -] 40 mg PO DAILY 07/29/14 Levothyroxine [Synthroid -] 25 mcg PO DAILY 07/29/14 Pravastatin Sodium [Pravachol -] 40 mg PO HS 12/17/16 Acetaminophen 1,000 mg PO DAILY 06/16/19 Cholecalciferol (Vitamin D3) 50,000 unit PO Q30D 06/16/19 [Vitamin D3] Cyanocobalamin (Vitamin B-12) 1 tablet PO DAILY 06/16/19 [Vitamin B-12] Guaifenesin/Dextromethorphan 1 each PO DAILY 06/16/19 [Mucinex Dm ER 1,200-60 mg Tab] Ipratropium/Albuterol Sulfate 3 ml IH TID 06/16/19 [Iprat-Albut 0.5-3(2.5) mg/3 ml] Levofloxacin [Levaquin] 500 mg PO DAILY 06/16/19 Lisinopril 20 mg PO DAILY 06/16/19 Loratadine 10 mg PO HS 06/16/19 Melatonin [Melatin] 3 mg PO HS 06/16/19 Menthol [Icy Hot] 1 patch TP DAILY 06/16/19 Methyl Salicylate/Menthol [Bengay 1 unit TP BID 06/16/19 Greaseless Cream] Mometasone Furoate [Elocon] 1 unit TP DAILY 06/16/19 Oxymetazoline HCl [Nasal [place]] 1 spray IH BID 06/16/19 Petrolatum,White [Aquaphor] 1 unit TP BID 06/16/19 Polyethylene Glycol 3350 17 gm PO HS 06/16/19 Polyvinyl Alcohol [Artificial 1 drop OU BID 06/16/19 Tears] ASSESSMENT/PLAN: 88 year old male with history of HTN, HLD, Chronic Diastolic CHF, CAD, HLD, Atrial Fibrillation, CRF secondary to COPD (on 2L O2 via [place]), Thoracic Aortic Aneurysm, R Breast Ca s/p Mastectomy, hypothyroidism, Pulmonary HTN, brought [place] for [place]B, generalized lethargy/weakness after 5 day treatment with Levaquin for Pneumonia. 1. Acute Hypoxic Respiratory Failure secondary to Acute on Chronic Diastolic CHF decompensation Elevated BNP, congestion on CXR with bilateral effusions. EF 55-60%, elevated RV syst pressure, Ascending Aorta 4cm IV Lasix transitioned to PO Monitor I/Os, Daily weights, renal function. Slowly down-titrate O2. Cardiology following. 2. Pneumonia - confirmed on CT Chest. Recently completed 5 day Rx with levofloxacin. No leukocytosis, no fever Radiology findings likely lagging behind clinical progress. On ceftriaxone for UTI 3. HTN - Continue Toprol, Lisinopril. 4. Atrial Fibrillation - persistent - Started on Eliquis by Cardiology in addition to Metoprolol. ASA discontinued. 5. Hypothyroidism - Continue Levothyroxine. 6. HLD - Continue Statin. 7. CAD - Continue BB, VIOLETA-I, Statin. 8. COPD - denies being chronically on 2L O2 via [place] at [place]. COPD Stable - No evidence of acute decompensation. 9. Hypokalemia - will replete. 10. UTI - Urine Cx positve for EColi > 100,000 CFU/ml. Reports dysuria prior to villareal insertion. Day 3 Ceftriaxone - to complete 5 day Abx course. DVT Px - on Eliquis Code Status - DNR/DNI.
[2019-06-20] MEDS ORDERED: PT OWN MED DRAWER 7, Y5N ONE ×2 (20:44→21:30)
--- NOTE | 2019-06-20 21:40 | PN ---
Physical Exam: SUBJECTIVE: Patient seen and examined. Pt's daughter reports she is sleeping more than usual and has dry cough. Pt denies any symptoms. OBJECTIVE: PVCs on tele, I/O +780 yesterday Vital Signs Period Temp Pulse Resp BP Sys/Meng Pulse Ox Last 24 Hr 97.9 F-97.9 F 80-94 20-20 114-139/48-75 96 GENERAL: The patient is awake, alert, and fully oriented, in no acute distress. HEAD: Normal with no signs of trauma. EYES: PERRL, extraocular movements intact, sclera anicteric, conjunctiva clear. No ptosis. ENT: Ears normal, nares patent, moist mucous membranes. NECK: Trachea midline, full range of motion, supple. LUNGS: Tachypneic. Breath sounds equal, clear to auscultation bilaterally, decreased sounds bases, no wheezes, no crackles, no accessory muscle use. HEART: Regular rate and irregular rhythm, S1, S2 without murmur, rub or gallop. ABDOMEN: Soft, nontender, nondistended, normoactive bowel sounds, EXTREMITIES: 2+ pulses, warm, well-perfused, +1 pitting edema LE bilaterally. NEUROLOGICAL: Cranial nerves II through XII grossly intact. Normal speech, gait not observed. PSYCH: Normal mood, normal affect. SKIN: Warm, dry, normal turgor, no rashes or lesions noted Laboratory Results - last 24 hr 06/20/19 09:15 Sodium 138 Potassium 3.4 L Chloride 89 L Carbon Dioxide > 45 H Anion Gap 4 L BUN 22.2 H Creatinine 0.7 Est GFR (CKD-EPI)AfAm 89.03 Est GFR (CKD-EPI)NonAf 76.82 Random Glucose 132 H Calcium 8.6 Active Medications Generic Name Dose Route Start Last Admin Trade Name Freq PRN Reason Stop Dose Admin Apixaban 5 mg 06/17/19 10:00 06/20/19 09:54 Eliquis - PO 5 mg BID NADIRA Administration Artificial Tears 1 drop 06/16/19 22:00 06/20/19 09:53 Artificial Tears OU 1 drop BID NADIRA Administration Atorvastatin Calcium 10 mg 06/16/19 22:00 06/19/19 21:24 Lipitor - PO 10 mg HS NADIRA Administration Furosemide 40 mg 06/19/19 10:00 06/20/19 09:54 Lasix - PO 40 mg DAILY NADIRA Administration Ceftriaxone Sodium 1 gm/ 50 mls @ 100 mls/hr 06/18/19 11:55 06/20/19 09:54 Dextrose IVPB 06/23/19 11:54 100 mls/hr DAILY NADIRA Administration Protocol Lactobacillus Acidophilus 1 tab 06/18/19 10:45 06/20/19 09:54 Bacid - PO 1 tab DAILY NADIRA Administration Levothyroxine Sodium 25 mcg 06/17/19 07:00 06/20/19 06:05 Synthroid - PO 25 mcg DAILY@0700 NADIRA Administration Lisinopril 20 mg 06/17/19 10:00 06/20/19 09:54 Prinivil PO 20 mg DAILY NADIRA Administration Loratadine 10 mg 06/16/19 22:00 06/19/19 21:36 Claritin - PO 10 mg HS NADIRA Administration Melatonin 3 mg 06/16/19 22:00 06/19/19 22:00 Melatonin PO Not Given HS NADIRA Metoprolol Succinate 50 mg 06/17/19 10:00 06/20/19 09:54 Toprol Xl - PO 50 mg DAILY NADIRA Administration Non-Formulary Medication 50,000 unit 06/16/19 22:00 Cholecalciferol (Vitamin D3) [Vitamin D3] PO Q30D NADIRA Polyethylene Glycol 17 gm 06/16/19 22:00 06/19/19 21:30 Miralax (For Daily Use) - PO 17 grams HS NADIRA Administration Assessment/Plan: Ms. Benítez is an 88yo female with history of diastolic CHF, HTN, CAD, a-fib, COPD (not on home O2 per daughter), pulmonary HTN, HLD, hypothyroidism, right breast ca s/p mastectomy who presents with weakness after 5 day treatment with Levaquin for pneumonia. #acute hypoxic respiratory failure 2/2 acute on chronic diastolic CHF Elevated BNP, congestion on CXR with bilateral effusions. Pt and daughter deny home use of 2L NC as reported in chart. Daughter says she lives with her. There was no mention of NH. -echo- EF 55-60%, elevated RV systolic pressure, ascending aorta 4cm -PO lasix -I/Os +780 yesterday -adjust O2 -cards following #pneumonia Recently completed 5 day Rx with levofloxacin. No leukocytosis, afebrile, hemodynamically stable -ceftriaxone for UTI #simple cystitis E Coli > 100,000CFUs -day 3 of 5 ceftriaxone #Hypokalemia 3.4 -40meq KCl -BMP #HTN well controlled -continue lisinopril, Toprol #a-fib, persistent -on Eliquis, started by cards -metoprolol -d/c'ed ASA #Hypothyroidism -levothyroxine #HLD -atorvastatin #CAD -lisinopril, metoprolol #COPD denies home O2 use -will down-titrate O2 to prepare for d/c FEN PO fluids monitor lytes, K sodium controlled diet DVT prophylaxis Eliquis DNR/DNI Visit type - Emergency Visit Emergency Visit: Yes ED Registration Date: 06/16/19 Care time: The patient presented to the Emergency Department on the above date and was hospitalized for further evaluation of their emergent condition. - New Patient This patient is new to me today: Yes Date on this admission: 06/20/19 - Critical Care Critical Care patient: No - Discharge Referral Referred to [facility] No ATTENDING PHYSICIAN STATEMENT I saw and evaluated the patient. I reviewed the resident's note and discussed the case with the resident. I agree with the resident's findings and plan as documented. SUBJECTIVE: OBJECTIVE: ASSESSMENT AND PLAN:
[2019-06-20] MEDS: MELATONIN 1 MG TABLET PO SCH (22:20)
[2019-06-20] MEDS: LORATADINE 10 MG TABLET PO SCH (22:20)
[2019-06-20] MEDS: ATORVASTATIN CA 10 MG TABLET (FP) PO SCH (22:20)
[2019-06-20] MEDS: POLYETHYLENE GLYCOL 3350 119 GM BTL PO SCH (22:26)
[2019-06-21] MEDS: LEVOTHYROXINE NA 25 MCG TABLET (FP) PO SCH (07:09)
[2019-06-21] MEDS ORDERED: cefTRIAXone SODIUM 1 GM VIAL ONE (09:44)
[2019-06-21] MEDS ORDERED: DEXTROSE 5%-WATER - 50 ML IVPB ONE (09:44)
[2019-06-21] MEDS: CEFTRIAXONE 1 GM in DEXTROSE 5%-WATER - 50 ML IVPB SCH (10:27)
[2019-06-21] MEDS: APIXABAN 5 MG TABLET PO SCH (10:28)
[2019-06-21] MEDS: FUROSEMIDE 40 MG TABLET (FP) PO SCH (10:28)
[2019-06-21] MEDS: LACTOBACILLUS ACIDOPHILUS 1 TABLET PO SCH (10:28)
[2019-06-21] MEDS: LISINOPRIL 20 MG TABLET (FP) PO SCH (10:28)
[2019-06-21] MEDS: ARTIFICIAL TEARS (POLYVINYL ALCOHOL) OPTH DROPS OU SCH ×2 (11:03→22:15)
--- NOTE | 2019-06-21 11:23 | PN ---
Progress Note (short form) - Note Progress Note: s: no cp palps dizzy; per daughter more sob overnight, was on bipap Current Medications Apixaban (Eliquis -) 5 mg PO BID [facility] Last Admin: 06/21/19 10:28 Dose: 5 mg Artificial Tears (Artificial Tears) 1 drop OU BID [facility] Last Admin: 06/21/19 11:03 Dose: Not Given Atorvastatin Calcium (Lipitor -) 10 mg PO [facility] Last Admin: 06/20/19 22:20 Dose: 10 mg Furosemide (Lasix -) 40 mg PO DAILY [facility] Last Admin: 06/21/19 10:28 Dose: 40 mg Ceftriaxone Sodium 1 gm/ (Dextrose) 50 mls @ 100 mls/hr IVPB DAILY [facility]; Protocol Stop: 06/23/19 11:54 Last Admin: 06/21/19 10:27 Dose: 100 mls/hr Lactobacillus Acidophilus (Bacid -) 1 tab PO DAILY [facility] Last Admin: 06/21/19 10:28 Dose: 1 tab Levothyroxine Sodium (Synthroid -) 25 mcg PO DAILY@0700 [facility] Last Admin: 06/21/19 07:09 Dose: 25 mcg Lisinopril (Prinivil) 20 mg PO DAILY [facility] Last Admin: 06/21/19 10:28 Dose: 20 mg Loratadine (Claritin -) 10 mg PO [facility] Last Admin: 06/20/19 22:20 Dose: 10 mg Melatonin (Melatonin) 3 mg PO [facility] Last Admin: 06/20/19 22:20 Dose: 3 mg Metoprolol Succinate (Toprol Xl -) 50 mg PO DAILY [facility] Last Admin: 06/21/19 10:28 Dose: 50 mg Non-Formulary Medication (Cholecalciferol (Vitamin D3) [Vitamin D3]) 50,000 unit PO Q30D [facility] Polyethylene Glycol (Miralax (For Daily Use) -) 17 gm PO [facility] Last Admin: 06/20/19 22:26 Dose: Not Given Vital Signs Period Temp Pulse Resp BP Sys/Meng Pulse Ox Last 24 Hr 97.9 F-98.2 F 80-89 20-20 104-124/49-72 96-96 Constitutional: Yes: No Distress Respiratory: Yes: cta bl nl eff Gastrointestinal: Yes: Soft, Abdomen, Obese Cardiovascular: Yes: Pulse Irregular JVD: Yes Heart Sounds: Yes: S1, S2 (irregular) Edema: no Neurological: Yes: Alert, Oriented TELE: Controlled AF echo 05/2019: nl lv/rv, lae, mild tr, mild mr, mild as, rvsp 40-50, mild ao root dil Imaging - Results Cat Scan: Image Reviewed EKG: Image Reviewed Assessment/Plan IMP: 1. Acute on chronic diastolic CHF 2. Permanent AF, controlled 3. Chronic HTN 4. Stable thoracic aortic aneurysm, 4cm 5. Possible PNA, uti REC: - rate controlled on bb, dc tele - pt in group home under closer supervision and with no recent falls, cont Eliquis for stroke prevention. - Vol status improved with iv lasix, now on po, continue, appears euvolemic - Echo unremarkable - Abx per primary
--- NOTE | 2019-06-21 12:52 | PN ---
Teaching Attending Note Name of Resident: Giovany Decker ATTENDING PHYSICIAN STATEMENT I saw and evaluated the patient. I reviewed the resident's note and discussed the case with the resident. I agree with the resident's findings and plan as documented. SUBJECTIVE:episode of hypoxia last night requiring venti-mask when she laid down to go to sleep. no other episodes. no complaints of SOB or cough. denies CP , SOB, fever, chills, N/V/C/D OBJECTIVE: Last Vital Signs Temp Pulse Resp BP Pulse Ox 97.8 F 79 20 119/78 96 06/21/19 10:00 06/21/19 10:00 06/21/19 10:00 06/21/19 10:00 06/21/19 08:16 Intake & Output 06/18/19 06/19/19 06/20/19 06/21/19 23:59 23:59 23:59 23:59 Intake Total 1100 1580 740 240 Output Total 2400 800 Balance -1300 780 740 240 Weight 208 lb 222 lb 6.4 oz General NAD CV S1 S2 irregular Lungs CTA B/L no wheezing or crackles Abdomen soft NT/ND obese Extremities trace pitting edema ASSESSMENT AND PLAN: 88 year old male with history of HTN, HLD, Chronic Diastolic CHF, CAD, HLD, Atrial Fibrillation, CRF secondary to COPD (on 2L O2 via [place]), Thoracic Aortic Aneurysm, R Breast Ca s/p Mastectomy, hypothyroidism, Pulmonary HTN, brought from [place] for SOB, generalized lethargy/weakness after 5 day treatment with Levaquin for Pneumonia. 1. Acute Hypoxic Respiratory Failure secondary to Acute on Chronic Diastolic CHF decompensation- currently 96% on RA. as per patient daughter has not been on o2 at the SNF although that is documented in chart. will obtain PA and lateral CXR. on lasix po. cardio on board. 2. Pneumonia - confirmed on CT Chest. completed levaquin x5 days. will need repeat CT in 4-6weeks 3. UTI- on ceftriaxone day 4. will transition to keflex to complete course on discharge 4. HTN - Continue Toprol, Lisinopril. 5. Atrial Fibrillation - persistent - Started on Eliquis by Cardiology in addition to Metoprolol. ASA discontinued. 6. Hypothyroidism - Continue Levothyroxine. 7. HLD - Continue Statin. 8. CAD - Continue BB, VIOLETA-I, Statin. 9. COPD - denies being chronically on 2L O2 via [place] at [place]. COPD Stable - No evidence of acute decompensation. 10. Hypokalemia - will replete. 11. DVT Px - on Eliquis 12. Code Status - DNR/DNI. 13., spoke with daughter present at bedside. possible d/c to SNF later today pending CXR
--- NOTE | 2019-06-21 15:45 | DS ---
Physical Exam: SUBJECTIVE: 88 y/o F w PMH HTN, HLD, Chronic diastolic CHF, CAD, HLD, atrial fibrillation, chronic respiratory failure secondary to COPD (on 2L O2 via NC), thoracic aortic aneurysm, RIGHT breast CA s/p mastectomy, hypothyroidism, pulmonary HTN, brought from [place] for SOB, generalized lethargy/weakness after 5 day treatment with levaquin for pneumonia. Aadmitted for acute on chronic respiratory failure. Pt seen at bedside today ROSS 4. Pt was discharged yesterday but fell off stretcher while being transferred by EMS so she was held overnight. No head trauma, no LOC. Pt fell on RIGHT elbow, which she states is sore today. Imaging shows no fracture. Pt will f/u w neurosurgery out-pt. She denies SOB, CP and NVFD. OBJECTIVE: Vital Signs Period Temp Pulse Resp BP Sys/Meng Pulse Ox Last 24 Hr 97.8 F-98.2 F 79-89 20-20 104-124/49-78 96-96 PHYSICAL EXAM GENERAL: The patient is awake, alert, and fully oriented, in no acute distress. Speaks Swazi and German. HEAD: NCAT EYES: CECY, EOMI, sclera anicteric, conjunctiva clear. No ptosis. ENT: Ears normal, nares patent, oropharynx clear without exudates, moist mucous membranes. NECK: Trachea midline, full range of motion, supple. LUNGS: Rales BL Breath sounds equal, no wheezes, no crackles, no accessory muscle use. HEART: Irregular rate and rhythm, S1, S2 without murmur, rub or gallop. ABDOMEN: Soft, nontender, nondistended, normoactive bowel sounds, no guarding, no rebound, no hepatosplenomegaly, no masses. EXTREMITIES: 1+ edema BL LE 2+ pulses, warm, well-perfused, NEUROLOGICAL: Cranial nerves II through XII grossly intact. Normal speech, gait not observed. PSYCH: Normal mood, normal affect. SKIN: Warm, dry, normal turgor, no rashes or lesions noted LABS Laboratory Results - last 24 hr 06/21/19 08:35 Blood Type O NEGATIVE Antibody Screen Negative HOSPITAL COURSE: Date of Admission:06/16/19 88 y/o F w PMH HTN, HLD, Chronic diastolic CHF, CAD, HLD, atrial fibrillation, chronic respiratory failure secondary to COPD (on 2L O2 via NC), thoracic aortic aneurysm, RIGHT breast CA s/p mastectomy, hypothyroidism, pulmonary HTN, brought from [place] for SOB, generalized lethargy/weakness after 5 day treatment with levaquin for pneumonia. Pt was admitted for acute on chronic diastolic CHF 2/2 acute decompensated diastolic CHF with preserved EF 55-60%. During the stay she benefitted from IV Lasix, close monitoring of I/Os, daily weights, and renal function. She was kept on telemetry to assess for adequate rate control. Her regimen included toprol XL 50mg QD. Cardiology consulted was consulted (Dr. Pagan). Pt had c/o dysuria prior to visit. Urine Cx positve for NLFGNB > 100, 000 CFU/ml and completed 4 of 5 days of Ceftriaxone. She was sent home w 1 day remaining: cefuroxime. Pt's PNA dx in [facility] was confirmed on CT chest. She completed 5 days of levofloxacin before admission. Pt placed on 2L [place] o2 for desaturation by Pepe Patiño NP at [facility] but has no home dose/use of chronic o2. There was no leukocytosis and afebrile. Her HTN was treated w Toprol and lisinopril. Persistent A. fib followed by cardiology. Recommendations included Eliquis in addition to Metoprolol 50mg QD. ASA was discontinued and Eliquis put in place for stroke prevention given close supervision in [place]. Echo unremarkable this visit. Hypothyroidism tx w levothyroxine home dose. HLD tx w home statin dose. Cont. BB, ACEi, statin for CAD. There was no evidence of acute decompensation of pt's chronic resp. failure 2/2 COPD. Pt was discharged yesterday 06/22/19 but fell off stretcher while being transferred by EMS so she was held overnight. No head trauma, no LOC. Pt fell on RIGHT elbow, which she states is sore today. Imaging shows no fracture. Pt will f/u w neurosurgery out-pt. Date of Discharge: 06/21/19 Giovany Decker MD Minutes to complete discharge: 40 Discharge Summary Reason For Visit: ACUTE ON CHRONIC CONGESTIVE HEART FAILURE Current Active Problems CHF exacerbation (Acute) Hyponatremia (Acute) Hypoxia (Acute) SOB (shortness of breath) (Acute) Condition: Stable - Instructions Diet, Activity, Other Instructions: YOUR VISIT You came to the hospital because you felt more short of breath than usual. You were admitted to the hospital for a worsening of your heart condition that occurred after your lung infection, for which you completed treatment. You were given treatment in the hospital that help take away the fluids causing your trouble with breathing. You were also seen by a block tester. While here, it was found that you had a urine infection. You were given antibiotics to treat this. You experienced a fall, and hit your elbow but had no head injury on your CT scan. You may now return to [facility]. MEDICATIONS Please continue to take your home medications as prescribed. You have two *NEW* medications to take - Eliquis 5 mg by mouth twice a day. Note that we have stopped your Aspirin. DO NOT take this medication any more. Discuss these medication changes with your block tester at your appointment. - Cefuroxime 500 mg twice a day for one more day You will need to use oxygen for the present time to ensure your oxygen saturation remains above 90%. Please also weigh and records your measurements every day. ADDITIONAL CARE Please make an appointment with your primary care provider 1 week from today. You requested to continue care with Dr. Jean Nash, so please call his office for an appointment 1 week from today. Note the you will need a repeat chest xray within 6 weeks after discharge. Please follow up with your block tester, Dr. Konrad Cedillo, 1 week from today. Please follow up with your neurosurgeon, Dr. Tereso De, 1 week from today to follow up the spine imaging studies. ADDITIONAL INFORMATION Please call 911 or come directly to the emergency department if you feel unusual headache, vision change, loss of alertness/awareness, any loss of function, numbness, tingling, shortness of breath, chest pain, unusual bleeding or any other alarming symptoms. Referrals: Tereso De MD, [facility] [Staff Physician] - Konrad Cedillo MD [Staff Physician] - Jean Nash MD [Staff Physician] - Disposition: LONG TERM FACILITY - Home Medications Comprehensive Discharge Medication List: Ambulatory Orders Aspirin [Baby Aspirin] 162 mg PO DAILY 10/18/11 Metoprolol Succinate [Toprol XL -] 50 mg PO DAILY 08/12/12 Furosemide [Lasix -] 40 mg PO DAILY 07/29/14 Levothyroxine [Synthroid -] 25 mcg PO DAILY 07/29/14 Pravastatin Sodium [Pravachol -] 40 mg PO HS 12/17/16 Acetaminophen 1,000 mg PO DAILY 06/16/19 Cholecalciferol (Vitamin D3) [Vitamin D3] 50,000 unit PO Q30D 06/16/19 Cyanocobalamin (Vitamin B-12) [Vitamin B-12] 1 tablet PO DAILY 06/16/19 Guaifenesin/Dextromethorphan [Mucinex Dm ER 1,200-60 mg Tab] 1 each PO DAILY Ipratropium/Albuterol Sulfate [Iprat-Albut 0.5-3(2.5) mg/3 ml] 3 ml IH TID 06/16 Levofloxacin [Levaquin] 500 mg PO DAILY 06/16/19 Lisinopril 20 mg PO DAILY 06/16/19 Loratadine 10 mg PO HS 06/16/19 Melatonin [Melatin] 3 mg PO HS 06/16/19 Menthol [Icy Hot] 1 patch TP DAILY 06/16/19 Methyl Salicylate/Menthol [Bengay Greaseless Cream] 1 unit TP BID 06/16/19 Mometasone Furoate [Elocon] 1 unit TP DAILY 06/16/19 Oxymetazoline HCl [Nasal [place]] 1 spray IH BID 06/16/19 Petrolatum,White [Aquaphor] 1 unit TP BID 06/16/19 Polyethylene Glycol 3350 17 gm PO HS 06/16/19 Polyvinyl Alcohol [Artificial Tears] 1 drop OU BID 06/16/19 This patient is new to me today: No Emergency Visit: No Critical Care patient: No - Discharge Referral Referred to [facility] No ATTENDING PHYSICIAN STATEMENT I saw and evaluated the patient. I reviewed the resident's note and discussed the case with the resident. I agree with the resident's findings and plan as documented. SUBJECTIVE: OBJECTIVE: ASSESSMENT AND PLAN:
--- NOTE | 2019-06-21 17:40 | RAPID ---
Physical Examination Vital Signs: Vital Signs Temperature 98.2 F 06/21/19 14:00 Pulse Rate 80 06/21/19 14:00 Respiratory Rate 20 06/21/19 14:00 Blood Pressure 126/63 06/21/19 14:00 O2 Sat by Pulse Oximetry (%) 96 06/21/19 08:16 Findings/Remarks: Rapid response called at 17:10, hair salon manager team responded immediately. Alerted by nursing staff, patient fell out of EMS stretcher. Unclear if patient hit head. Daughter present at bedside. Vitals: BP1: 117/91 BP2: 146/76 satting 93% on 3LNC, HR90s, RR 16 Physical Exam: AOx3, mild distress, rrr, normal s1 s2 CTAB R elbow has small abrasion, no active bleeding noted Tenderness to palpation in lumbar spine CN II-XII intact, normal speech, gross sensation intact throughout, 5/5 muscle strength to hip flexion, hand filling and packing supervisor, elbow flexion and extension. 2+ reflexes throughout. 2+ pulses dorsalis pedis A+P: #Fall - found on the ground after stretcher tipped over, however neurovascularly intact - Received NOAC dose today - Subsequent NOAC dose held until bleed can be ruled out - STAT head CT to rule out acute bleed - STAT L spine and R elbow XRAY to r/o fracture - q2h neuro checks - will observe Labs: CBC, BMP 06/19/19 06:46 06/20/19 09:15
[2019-06-21] MEDS ORDERED: PT OWN MED DRAWER 7, Y5N ONE (21:02)
[2019-06-21] MEDS: LORATADINE 10 MG TABLET PO SCH (22:14)
[2019-06-21] MEDS: ATORVASTATIN CA 10 MG TABLET (FP) PO SCH (22:15)
[2019-06-21] MEDS: MELATONIN 1 MG TABLET PO SCH (22:15)
[2019-06-21] MEDS: POLYETHYLENE GLYCOL 3350 119 GM BTL PO SCH (22:16)
[2019-06-22] MEDS: LEVOTHYROXINE NA 25 MCG TABLET (FP) PO SCH (06:45)
[2019-06-22] MEDS ORDERED: ACETAMINOPHEN 325 MG TABLET (FP) PO PRN (07:49)
[2019-06-22] MEDS ORDERED: METHYL SALICYLATE/MENTHOL OINT 30 GM TUBE TP SCH ×2 (10:00)
[2019-06-22] MEDS: ARTIFICIAL TEARS (POLYVINYL ALCOHOL) OPTH DROPS OU SCH (10:00)
--- NOTE | 2019-06-22 11:27 | PN ---
Teaching Attending Note Name of Resident: Giovany Decker ATTENDING PHYSICIAN STATEMENT I saw and evaluated the patient. I reviewed the resident's note and discussed the case with the resident. I agree with the resident's findings and plan as documented. SUBJECTIVE:pt fell off transport stretcher when leaving with EMS yesterday. did not hit her head, did not loose consciousness. c/o RUE pain. denies Cp, SOb, fever, chills, N/V/C/D OBJECTIVE: Last Vital Signs Temp Pulse Resp BP Pulse Ox 97.8 F 85 18 136/69 95 06/22/19 09:23 06/22/19 09:23 06/22/19 09:23 06/22/19 09:23 06/22/19 09:00 General NAD CV S1 S2 irregular Lungs CTA B/L no wheezing or crackles Abdomen soft NT/ND obese Extremities trace pitting edema, tenderness to RUE, good ROM ASSESSMENT AND PLAN: 88 year old male with history of HTN, HLD, Chronic Diastolic CHF, CAD, HLD, Atrial Fibrillation, CRF secondary to COPD (on 2L O2 via NC), Thoracic Aortic Aneurysm, R Breast Ca s/p Mastectomy, hypothyroidism, Pulmonary HTN, brought from [place] for SOB, generalized lethargy/weakness after 5 day treatment with Levaquin for Pneumonia. 1. s/p mechanical fall- XR done with questionable radial fracture and disc subluxation. will get CT of both area to better evaluate. consider neurosurg eval pending on results. pain controlled 1. Acute Hypoxic Respiratory Failure secondary to Acute on Chronic Diastolic CHF decompensation- currently 96% on RA. CXR done shows improvement in lung villaseñor. will need repeat CXR in 6 weeks. on lasix po. cardio on board. 2. Pneumonia - confirmed on CT Chest. completed levaquin x5 days. will need repeat CT in 4-6weeks 3. UTI- on ceftriaxone day 4. will transition to keflex to complete course on discharge 4. HTN - Continue Toprol, Lisinopril. 5. Atrial Fibrillation - persistent - Started on Eliquis by Cardiology in addition to Metoprolol. ASA discontinued. 6. Hypothyroidism - Continue Levothyroxine. 7. HLD - Continue Statin. 8. CAD - Continue BB, VIOLETA-I, Statin. 9. COPD - denies being chronically on 2L O2 via NC at [place]. COPD Stable - No evidence of acute decompensation. 10. Hypokalemia - will replete. 11. DVT Px - on Eliquis 12. Code Status - DNR/DNI. 13. spoke with daughter present at bedside. possible d/c to SNF later today pending imaging results
--- NOTE | 2019-06-22 11:39 | PN ---
Progress Note (short form) - Note Progress Note: s: no cp palps dizzy sob. was planned to be dc yesterday, had fall from stretcher, no complaints today Current Medications Acetaminophen (Tylenol -) 650 mg PO Q6H PRN PRN Reason: PAIN LEVEL 6-10 Apixaban (Eliquis -) 5 mg PO BID [facility] Last Admin: 06/21/19 10:28 Dose: 5 mg Artificial Tears (Artificial Tears) 1 drop OU BID [facility] Last Admin: 06/21/19 22:15 Dose: 1 drop Atorvastatin Calcium (Lipitor -) 10 mg PO HS [facility] Last Admin: 06/21/19 22:15 Dose: 10 mg Furosemide (Lasix -) 40 mg PO DAILY [facility] Last Admin: 06/21/19 10:28 Dose: 40 mg Ceftriaxone Sodium 1 gm/ (Dextrose) 50 mls @ 100 mls/hr IVPB DAILY [facility]; Protocol Stop: 06/23/19 11:54 Last Admin: 06/21/19 10:27 Dose: 100 mls/hr Lactobacillus Acidophilus (Bacid -) 1 tab PO DAILY [facility] Last Admin: 06/21/19 10:28 Dose: 1 tab Levothyroxine Sodium (Synthroid -) 25 mcg PO DAILY@0700 [facility] Last Admin: 06/22/19 06:45 Dose: 25 mcg Lisinopril (Prinivil) 20 mg PO DAILY [facility] Last Admin: 06/21/19 10:28 Dose: 20 mg Loratadine (Claritin -) 10 mg PO HS [facility] Last Admin: 06/21/19 22:14 Dose: 10 mg Melatonin (Melatonin) 3 mg PO HS [facility] Last Admin: 06/21/19 22:15 Dose: 3 mg Methyl Salicylate (Jmiy-Davis -) 1 applic TP BID [facility] Metoprolol Succinate (Toprol Xl -) 50 mg PO DAILY [facility] Last Admin: 06/21/19 10:28 Dose: 50 mg Non-Formulary Medication (Cholecalciferol (Vitamin D3) [Vitamin D3]) 50,000 unit PO Q30D [facility] Polyethylene Glycol (Miralax (For Daily Use) -) 17 gm PO HS [facility] Last Admin: 06/21/19 22:16 Dose: Not Given Vital Signs Period Temp Pulse Resp BP Sys/Meng Pulse Ox Last 24 Hr 97.8 F-98.3 F 77-90 18-20 115-146/59-87 95-95 Constitutional: Yes: No Distress Respiratory: Yes: cta bl nl eff Gastrointestinal: Yes: Soft, Abdomen, Obese Cardiovascular: Yes: Pulse Irregular JVD: Yes Heart Sounds: Yes: S1, S2 (irregular) Edema: no Neurological: Yes: Alert, Oriented TELE: Controlled AF echo 05/2019: nl lv/rv, lae, mild tr, mild mr, mild as, rvsp 40-50, mild ao root dil Imaging - Results Cat Scan: Image Reviewed EKG: Image Reviewed Assessment/Plan IMP: 1. Acute on chronic diastolic CHF 2. Permanent AF, controlled 3. Chronic HTN 4. Stable thoracic aortic aneurysm, 4cm 5. Possible PNA, uti REC: - rate controlled on bb, dc tele - pt in [place] [facility] under closer supervision, cont Eliquis for stroke prevention. - Vol status improved with iv lasix, now on po, continue, appears euvolemic - Echo unremarkable - Abx per primary
[2019-06-22] MEDS: LACTOBACILLUS ACIDOPHILUS 1 TABLET PO SCH ×2 (12:02→12:04)
[2019-06-22] MEDS: LISINOPRIL 20 MG TABLET (FP) PO SCH (12:03)
[2019-06-22] MEDS: CEFTRIAXONE 1 GM in DEXTROSE 5%-WATER - 50 ML IVPB SCH (12:03)
[2019-06-22] MEDS: FUROSEMIDE 40 MG TABLET (FP) PO SCH (12:03)
[2019-06-22 14:28] VITALS: BP 101/74; PULSE 95; TEMP 98
--- NOTE | 2019-06-22 16:36 | DS ---
Physical Exam: SUBJECTIVE: Patient seen and examined OBJECTIVE: Vital Signs Period Temp Pulse Resp BP Sys/Meng Pulse Ox Last 24 Hr 97.8 F-98.3 F 77-95 18-20 101-146/59-87 95-95 PHYSICAL EXAM GENERAL: The patient is awake, alert, and fully oriented, in no acute distress. HEAD: Normal with no signs of trauma. EYES: PERRL, extraocular movements intact, sclera anicteric, conjunctiva clear. ENT: Ears normal, nares patent, oropharynx clear without exudates, moist mucous membranes. NECK: Trachea midline, full range of motion, supple. LUNGS: Breath sounds equal, clear to auscultation bilaterally, no wheezes, no crackles, no accessory muscle use. HEART: Regular rate and rhythm, S1, S2 without murmur, rub or gallop. ABDOMEN: Soft, nontender, nondistended, normoactive bowel sounds, no guarding, no rebound, no hepatosplenomegaly, no masses. EXTREMITIES: 2+ pulses, warm, well-perfused, no edema. NEUROLOGICAL: Cranial nerves II through XII grossly intact. Normal speech, gait not observed. PSYCH: Normal mood, normal affect. SKIN: Warm, dry, normal turgor, no rashes or lesions noted. LABS HOSPITAL COURSE: Date of Admission:06/16/19 Date of Discharge: 06/22/19 Discharge Summary Reason For Visit: ACUTE ON CHRONIC CONGESTIVE HEART FAILURE Current Active Problems CHF exacerbation (Acute) Hyponatremia (Acute) Hypoxia (Acute) SOB (shortness of breath) (Acute) Condition: Stable - Instructions Diet, Activity, Other Instructions: YOUR VISIT You came to the hospital because you felt more short of breath than usual. You were admitted to the hospital for a worsening of your heart condition that occurred after your lung infection, for which you completed treatment. You were given treatment in the hospital that help take away the fluids causing your trouble with breathing. You were also seen by a foil spinner. While here, it was found that you had a urine infection. You were given antibiotics to treat this. You experienced a fall, and hit your elbow but had no head injury on your CT scan. You may now return to [facility]. MEDICATIONS Please continue to take your home medications as prescribed. You have two *NEW* medications to take - Eliquis 5 mg by mouth twice a day. Note that we have stopped your Aspirin. DO NOT take this medication any more. Discuss these medication changes with your foil spinner at your appointment. - Cefuroxime 500 mg twice a day for one more day You will need to use oxygen for the present time to ensure your oxygen saturation remains above 90%. Please also weigh and records your measurements every day. ADDITIONAL CARE Please make an appointment with your primary care provider 1 week from today. You requested to continue care with Dr. Jean Nash, so please call his office for an appointment 1 week from today. Note the you will need a repeat chest xray within 6 weeks after discharge. Please follow up with your foil spinner, Dr. Konrad Cedillo, 1 week from today. Please follow up with your neurosurgeon, Dr. Tereso De, to follow up the spine imaging studies. You may benefit from a brace if you continue to have back pain ADDITIONAL INFORMATION Please call 911 or come directly to the emergency department if you feel unusual headache, vision change, loss of alertness/awareness, any loss of function, numbness, tingling, shortness of breath, chest pain, unusual bleeding or any other alarming symptoms. Referrals: Tereso De MD, [facility] [Staff Physician] - Konrad Cedillo MD [Staff Physician] - Jean Nash MD [Staff Physician] - Disposition: LONG-TERM FACILITY - Home Medications Comprehensive Discharge Medication List: Ambulatory Orders Metoprolol Succinate [Toprol XL -] 50 mg PO DAILY 08/12/12 Furosemide [Lasix -] 40 mg PO DAILY 07/29/14 Levothyroxine [Synthroid -] 25 mcg PO DAILY 07/29/14 Pravastatin Sodium [Pravachol -] 40 mg PO HS 12/17/16 Acetaminophen 1,000 mg PO DAILY 06/16/19 Cholecalciferol (Vitamin D3) [Vitamin D3] 50,000 unit PO Q30D 06/16/19 Cyanocobalamin (Vitamin B-12) [Vitamin B-12] 1 tablet PO DAILY 06/16/19 Guaifenesin/Dextromethorphan [Mucinex Dm ER 1,200-60 mg Tab] 1 each PO DAILY Ipratropium/Albuterol Sulfate [Iprat-Albut 0.5-3(2.5) mg/3 ml] 3 ml IH TID 06/16 Lisinopril 20 mg PO DAILY 06/16/19 Loratadine 10 mg PO HS 06/16/19 Melatonin [Melatin] 3 mg PO HS 06/16/19 Menthol [Icy Hot] 1 patch TP DAILY 06/16/19 Methyl Salicylate/Menthol [Bengay Greaseless Cream] 1 unit TP BID 06/16/19 Mometasone Furoate [Elocon] 1 unit TP DAILY 06/16/19 Oxymetazoline HCl [Nasal [place]] 1 spray IH BID 06/16/19 Petrolatum,White [Aquaphor] 1 unit TP BID 06/16/19 Polyethylene Glycol 3350 17 gm PO HS 06/16/19 Polyvinyl Alcohol [Artificial Tears] 1 drop OU BID 06/16/19 Apixaban [Eliquis -] 5 mg PO BID 30 Days #60 tablet 06/21/19 Cefuroxime Axetil [Cefuroxime] 500 mg PO BID 1 Days #2 tablet 06/21/19 - Discharge Referral Referred to [facility] No ATTENDING PHYSICIAN STATEMENT I saw and evaluated the patient. I reviewed the resident's note and discussed the case with the resident. I agree with the resident's findings and plan as documented. SUBJECTIVE: OBJECTIVE: ASSESSMENT AND PLAN:
== END 2019-06-22 18:01 | DRG 291 ==
LOC: JER 17:55 → JERBED 20:01 → J4W 22:51
PROVIDERS: ADMIT Internal Medicine; ATTEND Internal Medicine
DX: I11.0 Hypertensive heart disease with heart failure (principal); J96.21 Acute and chronic respiratory failure with hypoxia; J18.9 Pneumonia, unspecified organism; N39.0 Urinary tract infection, site not specified; E87.1 Hypo-osmolality and hyponatremia; Z68.41 Body mass index [BMI] 40.0-44.9, adult; I48.1 Persistent atrial fibrillation; E87.3 Alkalosis; I50.33 Acute on chronic diastolic (congestive) heart failure; I71.2 Thoracic aortic aneurysm, without rupture; E78.5 Hyperlipidemia, unspecified; J44.9 Chronic obstructive pulmonary disease, unspecified; I27.20 Pulmonary hypertension, unspecified; E66.01 Morbid (severe) obesity due to excess calories; S50.312A Abrasion of left elbow, initial encounter; E03.9 Hypothyroidism, unspecified; I25.10 Atherosclerotic heart disease of native coronary artery without angina pectoris; E87.6 Hypokalemia; W19.XXXA Unspecified fall, initial encounter; Y93.9 Activity, unspecified; Y92.89 Other specified places as the place of occurrence of the external cause; Y99.9 Unspecified external cause status
CPT/HCPCS: 36415; 70450-TC; 71045-TC-FY; 71046-TC-FY; 71250-TC; 72100-TC-FY; 72131-TC; 73070-TC-RT-FY; 73200-TC-RT; 80048; 80053; 81003; 83605; 83735; 83880; 84100; 84443; 84484; 85025; 85610; 85730; 86850; 86900; 86901; 87040; 87086; 87186; 93005; 93010; 93306-TC; 97116-GP; 97161-GP; 99285-25